=== PATIENT | male | born 1970 | race Two or more races ===

== ENCOUNTER 2024-09-10 12:26 | Inpatient (IN) | payer MEDICAID, SELFPAY ==
[2024-09-10] VITALS (12 sets, daily range): BP systolic 110–150; BP diastolic 66–95; PULSE 102–132; RESP 17–90; TEMP 36.8–37.7; O2SAT 93–96; BMI 29.9
--- NOTE | 2024-09-10 12:45 | XR_ITS ---
Examination: Foot, right, 3 views Technique: AP, oblique, lateral views foot, 3 views Date and time of exam: September 10, 2024, 1349 hrs. 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
[2024-09-10 13:17] LABS: Basophils # (Auto) 0.2 Thou/mm3 (0.0-0.2); Basophils % (Auto) 1 % (0-2.5); Eosinophils % (Auto) 0 % (0-10); Hematocrit 37.6 % (41.0-53.0); Hemoglobin 13.6 g/dL (13.5-16.0); Immature Granulocytes % (Auto) 1 % (0-0); Lymphocytes # (Auto) 0.9 Thou/mm3 (1.0-4.8); Lymphocytes % (Auto) 5 % (10-50); Mean Corpuscular HGB Conc 36.2 g/dl (31.0-37.0); Mean Corpuscular Hemoglobin 29.5 pg (25.0-35.0); Mean Corpuscular Volume 82 fL (80-100); Monocytes % (Auto) 6 % (0-12); Neutrophils # (Auto) 15.6 Thou/mm3 (1.8-7.7); Neutrophils % (Auto) 87 % (37-80); Nucleated Red Blood Cell % 0 /100 WBC (0); Platelet Count 224 Thou/mm3 (140-440); RDW Standard Deviation 37.1 fL (35.1-43.9); Red Blood Count 4.61 Miln/mm3 (4.50-5.90); White Blood Count 17.9 Thou/mm3 (3.8-10.6)
[2024-09-10 13:24] LABS: Glucose Estimated Average 160 mg/dL (80-131); Hemoglobin A1C 7.2 % Hgb (4.8-6.0)
[2024-09-10 13:25] LABS: INR 1.1 (0.9-1.3); Partial Thromboplastin Time 32.1 Seconds (22.0-36.0); Prothrombin Time 12.3 Seconds (9.0-12.2)
--- NOTE | 2024-09-10 13:25 | EDNOTE_ITS ---
ED Skin Abcess FB-RME/HPI General Chief complaint: Skin/Abscess/Foreign Body Stated complaint: RIGHT FOOT REDNESS/SWELLING/PAIN, FEVER Time Seen by Provider: 09/10/24 12:36 Arrival date/time: 09/10/24 12:26 This is a 54-year-old male that comes in with nephew with complaints of right foot redness swelling pain and fever. Patient states that swelling to his right foot started approximately 2 weeks ago. Patient states he never sees a doctor. Patient does not know if he is diabetic. Patient has multiple wounds to his right foot. Patient states that he had a large blister to the top of his right foot that popped. Under this area looks very dark purple blackish color. Patient has multiple wounds to his foot. Entire foot is swollen erythemic and very foul-smelling. Patient has wounds in between his toes. Patient has a wound around the first digit and to the bottom of the foot. Patient states has been draining fluid. Related Data Previous Rx's ?Medication ?Instructions ?Recorded ascorbic acid (vitamin C) 250 mg 500 mg (2 x 250 mg) P O BID #60 tabs 09/18/24 tablet (Vitamin C) docusate sodium 100 mg capsule 100 mg PO BID #30 caps 09/18/24 hydrocodone 5 mg-acetaminophen 325 1 tab PO Q6H PRN pa in (scale score 09/18/24 mg tablet 7-10) #20 tabs metformin 500 mg tablet 500 mg PO BID 30 days #60 ta bs 09/18/24 zinc sulfate 50 mg zinc (220 mg) 220 mg (4.4 x 50 mg z inc (220 mg)) 09/18/24 capsule PO QDAY #30 caps Allergies Allergy/AdvReac Type Severity Reaction Status Date / Time No Known Allergies Allergy Verified 09/10/24 12:31 Review of Systems Review of Systems Systems Reviewed: All systems reviewed, normal except as documented Past Medical History Surgical History OTHER SURGICAL HX: Left arm Social History SMOKING STATUS: Never smoker SUBSTANCE USE: does not use ALCOHOL: Current ED Exam Narrative Physical exam: VITAL SIGNS: Reviewed. GENERAL APPEARANCE: Alert and interactive, follows commands, no acute distress, HEAD AND FACE: Non-traumatic. ENT: PERRL, conjuctiva pink and clear, eyelid no trauma, Mucous membrane moist. NECK: Supple, nontender, no nuchal rigidity. CHEST: No tenderness, no crepitus, no paradoxical movement, no retractions. LUNGS: Clear, well ventilated, symmetric, no rales, no wheezing, no rhonchi, no stridor, good breath sounds bilaterally. HEART: Regular rate, regular rhythm, no murmur, no gallops. ABDOMEN: Soft, nondistended, no guarding, nontender, no rebound, no masses, NEUROLOGICAL: Gross motor function intact sensory function intact, Appropriate for age. MUSCULOSKELETAL: low back nontender, full range of motion. EXTREMITIES: No redness no swelling no skin breakdown on bilateral foot and leg. Distal neurovascular status intact bilateral foot SKIN: right lower extremity erythema, swelling, induration, bulla formation, foul odor, multiple open wounds around bottom of foot Course Quality Measures none Orders Category Date Time Status Glucose [Bedside Blood Glucose] NOW Care 09/10/24 16:56 Completed Insert IV NOW Care 09/10/24 12:44 Completed Consult to General Surgery Stat Cons 09/10/24 16:[address] foot RT wo con Stat Exams 09/10/24 14:55 Completed XR foot comp RT min 3V Stat Exams 09/10/24 12:45 Completed A1C [Glycohemoglobin w (eAG)] Stat Lab 09/10/24 12:55 Completed Blood Culture (Lab) Stat Lab 09/10/24 12:58 Completed CBC Stat Lab 09/10/24 12:55 Completed CMP [Comprehensive Metabolic Panel] Stat Lab 09/10/24 12:55 Completed CRP [C-Reactive Protein] Stat Lab 09/10/24 12:55 Completed ESR [Sed Rate (ESR)] Stat Lab 09/10/24 12:55 Completed Lactic Acid [Lactate (Lactic Acid)] Stat Lab 09/10/24 12:55 Completed Lactic Acid, 3 HR Stat Lab 09/10/24 16:22 Completed PT [Prothrombin Time with INR] Stat Lab 09/10/24 12:55 Completed PTT [Partial Thromboplastin Time] Stat Lab 09/10/24 12:55 Completed Procalcitonin Stat Lab 09/10/24 12:55 Completed Piper/Tazo 3.375 gm Premix [Zosyn] Med 09/10/24 12:44 Discontinued 3.375 gm in 50 ml IV X1 Sodium Chloride 0.9% 1000 ml [Ns] 1,000 ml Med 09/10/24 13:35 Discontinued IV 999 mls/hr Sodium Chloride 0.9% 1000 ml [Ns] 1,000 ml Med 09/10/24 13:36 Discontinued IV 999 mls/hr Sodium Chloride 0.9% 1000 ml [Ns] 1,000 ml Med 09/10/24 14:40 Discontinued IV 999 mls/hr Vancomycin/Ns 1 gm Ivpb 200 ml Med 09/10/24 12:44 Discontinued IV X1 Vital Signs Vital signs: Vital Signs Temperature 99.8 F 09/10/24 12:36 Pulse Rate 132 H 09/10/24 12:36 Respiratory Rate 18 09/10/24 12:36 Blood Pressure 137/81 H 09/10/24 12:36 Pulse Oximetry (%) 96 09/10/24 12:36 Oxygen Delivery Method Room Air 09/10/24 12:36 Skin / Abscess / Foreign Body MDM Narrative MDM Narrative:: Findings: Cortical bone destruction involving the proximal phalanx Suspicious for erosions distal second and third metatarsals Impression: Osteomyelitis proximal phalanx third digit, distal second and third metatarsals, consider MRI foot without contrast follow-up third digit Prominent osteopenia Air in the soft tissue lateral ankle and over the metatarsals Findings: Soft tissue infection with air density anterior to the ankle and lateral malleolus as well as dorsum of the foot Prominent osteopenia Periosteal new bone along the proximal phalanx of the second digit Gross bone destruction involving the proximal phalanx of the third digit Early erosions involving the distal second and third metatarsals Impression: Extensive soft tissue infection Osteomyelitis proximal phalanges second and third digits, early osteomyelitis distal second and third metatarsals Labs reviewed patient's white count is 17.9, hemoglobin and hematocrit are 13.6 and 37.6 platelet count is 224, neutrophil count 87. Patient's ESR is 116, PT 12.3, INR 1.1. Sodium 137, potassium 3.4, chloride 97 BUN of 28 and creatinine of 1.2 initial glucose 427, ALT of 21 alk phos of 109, CRP is 33 okay it is okay procalcitonin of 37.84. rEviewed case with . Initially it is x-ray of the right foot was ordered. It showed osteomyelitis. Because of the severity of the infection a CT of the right lower extremity ordered. Stat rad called me and let me know that patient had diffuse necrotizing fasciitis anaerobic cellulitis and soft tissue abscesses with osteomyelitis. Dr Wade called and stated he would consult on patient. I did call admitting hospitalist team. They requested that Dr. Wade come to the bedside and see patient. Dr. Wade came at the bedside and saw patient. Patient being admitted and taken to surgery immediately. Patient data External records reviewed:: [facility] previous records Clinical information provided by:: patient Social determinants that could affect healthcare access:: none Patient has the following chronic illnesses:: see hpi How is presenting disease/condition affected by chronic disease/condition?: exacerbated by Evaluation data The following diagnostics were reviewed and interpreted by me:: lab results and radiology exam(s) Lab and/or radiology exams considered but not ordered:: none Interpretation Summary: see note Medications / Prescriptions Medications or Prescriptions considered but not ordered:: none Medication administrations:: Medication Administration History Discontinued Medications Acetaminophen (Acetaminophen 325 Mg Tablet) 650 mg PO Q6H PRN PRN Reason: PAIN OR FEVER > 101 Stop: 10/10/24 17:53 Acetaminophen (Acetaminophen 325 Mg Tablet) 650 mg PO Q6H PRN PRN Reason: PAIN OR FEVER > 101 Stop: 10/10/24 17:53 Hydrocodone Bitart/Acetaminophen (Hydrocodone/Apap 5/325 Tablet) 1 tab PO Q6HR PRN PRN Reason: PAIN SCALE 4-6 (Moderate Stop: 09/15/24 18:35 Ascorbic Acid (Ascorbic Acid 250 Mg Tablet) 500 mg PO BID LEONIDAS Stop: 10/10/24 20:59 Last Admin: 09/18/24 09:45 Dose: 500 mg Documented By: Admin: 09/17/24 20:53 Dose: 500 mg Documented By: Admin: 09/17/24 08:35 Dose: 500 mg Documented By: Admin: 09/16/24 20:10 Dose: 500 mg Documented By: Admin: 09/16/24 09:15 Dose: 500 mg Documented By: Admin: 09/15/24 20:27 Dose: 500 mg Documented By: Admin: 09/15/24 08:28 Dose: Not Given Documented By: GELA Non-Admin Reason: NPO Admin: 09/14/24 20:15 Dose: 500 mg Documented By: Admin: 09/14/24 08:29 Dose: 500 mg Documented By: Admin: 09/13/24 20:15 Dose: 500 mg Documented By: Admin: 09/13/24 08:07 Dose: 500 mg Documented By: Admin: 09/12/24 20:10 Dose: 500 mg Documented By: Admin: 09/12/24 08:07 Dose: 500 mg Documented By: Admin: 09/11/24 21:03 Dose: 500 mg Documented By: Admin: 09/11/24 08:49 Dose: 500 mg Documented By: Admin: 09/10/24 20:59 Dose: 500 mg Documented By: JOSEY Atorvastatin Calcium (Atorvastatin Calcium 20 Mg Tablet) 40 mg PO HS LEONIDAS Stop: 10/11/24 20:59 Last Admin: 09/17/24 20:53 Dose: 40 mg Documented By: Admin: 09/16/24 20:10 Dose: 40 mg Documented By: Admin: 09/15/24 20:26 Dose: 40 mg Documented By: Admin: 09/14/24 20:16 Dose: 40 mg Documented By: Admin: 09/13/24 20:15 Dose: 40 mg Documented By: Admin: 09/12/24 20:10 Dose: 40 mg Documented By: Admin: 09/11/24 21:03 Dose: 40 mg Documented By: MAURICIO Cefazolin Sodium (Cefazolin Inj 1 Gm Vial) Confirm Administered Dose 2 gm .ROUTE .STK-MED ONE Stop: 09/15/24 12:34 Cephalexin HCl (Cephalexin 250 Mg Capsule) 500 mg PO QID [facility] Stop: 09/22/24 08:14 Last Admin: 09/18/24 12:05 Dose: 500 mg Documented By: Admin: 09/18/24 05:10 Dose: 500 mg Documented By: Admin: 09/17/24 20:53 Dose: 500 mg Documented By: Admin: 09/17/24 16:53 Dose: 500 mg Documented By: Admin: 09/17/24 12:00 Dose: 500 mg Documented By: Admin: 09/17/24 08:35 Dose: 500 mg Documented By: ALANIS Dexamethasone Sodium Phosphate (Dexamethasone Sod Phos Inj 10 Mg/Ml Vial) Confirm Administered Dose 10 mg .ROUTE .STK-MED ONE Stop: 09/10/24 19:00 Dexamethasone Sodium Phosphate (Dexamethasone Sod Phos Inj 10 Mg/Ml Vial) Confirm Administered Dose 10 mg .ROUTE .STK-MED ONE Stop: 09/15/24 12:15 Dextrose (Dextrose 50%-Water Inj 50 Ml Syringe) 25 ml IV Q15MIN PRN PRN Reason: BG 50-70 responsive npo pt Stop: 10/10/24 18:03 Dextrose (Dextrose 50%-Water Inj 50 Ml Syringe) 50 ml IV Q15MIN PRN PRN Reason: BG <50 OR BG <70 & pt unresponsive Stop: 10/10/24 18:03 Docusate Sodium (Docusate Sod 100 Mg Capsule) 100 mg PO BID LEONIDAS; Protocol Stop: 10/10/24 20:59 Last Admin: 09/18/24 09:46 Dose: 100 mg Documented By: Admin: 09/17/24 20:53 Dose: 100 mg Documented By: Admin: 09/17/24 08:35 Dose: 100 mg Documented By: Admin: 09/16/24 20:10 Dose: 100 mg Documented By: Admin: 09/16/24 09:15 Dose: 100 mg Documented By: Admin: 09/15/24 20:27 Dose: 100 mg Documented By: Admin: 09/15/24 08:28 Dose: Not Given Documented By: GELA Non-Admin Reason: NPO Admin: 09/14/24 20:15 Dose: 100 mg Documented By: Admin: 09/14/24 08:29 Dose: Not Given Documented By: MICHAEL Non-Admin Reason: Patient Refused Admin: 09/13/24 20:15 Dose: 100 mg Documented By: Admin: 09/13/24 08:07 Dose: 100 mg Documented By: Admin: 09/12/24 20:10 Dose: 100 mg Documented By: Admin: 09/12/24 08:07 Dose: 100 mg Documented By: Admin: 09/11/24 20:42 Dose: Not Given Documented By: JVIOLET Non-Admin Reason: loose stools Admin: 09/11/24 08:50 Dose: Not Given Documented By: NYDIA Non-Admin Reason: loose stools Admin: 09/10/24 20:59 Dose: 100 mg Documented By: JOSEY Esmolol HCl (Esmolol Inj 10 Mg/Ml Vial 10 Ml) Confirm Administered Dose 100 mg .ROUTE .STK-MED ONE Stop: 09/10/24 19:39 Fentanyl Citrate (Fentanyl Cit Inj 50 Mcg/Ml Amp 2ml) Confirm Administered Dose 100 mcg .ROUTE .STK-MED ONE Stop: 09/10/24 18:33 Fentanyl Citrate (Fentanyl Cit Inj 50 Mcg/Ml Amp 2ml) Confirm Administered Dose 100 mcg .ROUTE .STK-MED ONE Stop: 09/10/24 19:05 Fentanyl Citrate (Fentanyl Cit Inj 50 Mcg/Ml Amp 2ml) 50 mcg IVP Q5MIN PRN PRN Reason: PAIN SCALE 4-10(Mod-Sev Fentanyl Citrate (Fentanyl Cit Inj 50 Mcg/Ml Amp 2ml) Confirm Administered Dose 100 mcg .ROUTE .STK-MED ONE Stop: 09/15/24 12:13 Fentanyl Citrate (Fentanyl Cit Inj 50 Mcg/Ml Amp 2ml) 50 mcg IVP Q5M PRN PRN Reason: PAIN SCALE 7-10 (Severe Stop: 09/15/24 14:39 Last Admin: 09/15/24 14:10 Dose: 50 mcg Documented By: Admin: 09/15/24 13:58 Dose: 50 mcg Documented By: FB Fentanyl Citrate (Fentanyl Cit Inj 50 Mcg/Ml Amp 2ml) Confirm Administered Dose 100 mcg .ROUTE .[facility]-MED ONE Stop: 09/15/24 12:41 Glucagon (Glucagon Inj 1 Mg Vial) 1 mg IM Q15MIN PRN PRN Reason: BG <70, and no IV access Hydralazine HCl (Hydralazine Inj 20 Mg/Ml Vial) 5 mg IV Q20MIN PRN PRN Reason: SEE COMMENTS Piperacillin/Tazobactam/Dextrose (Zosyn) 3.375 gm in 50 mls @ 100 mls/hr IV X1 ONE Stop: 09/10/24 13:13 Last Infusion: 09/10/24 14:01 Dose: Infused Documented By: Admin: 09/10/24 13:31 Dose: 100 mls/hr Documented By: EF Vancomycin/Sodium Chloride (Vancomycin/Ns 1 Gm Ivpb) 200 mls @ 120 mls/hr IV X1 ONE Stop: 09/10/24 14:23 Last Infusion: 09/10/24 15:48 Dose: Infused Documented By: Admin: 09/10/24 14:07 Dose: 120 mls/hr Documented By: EF Sodium Chloride (Ns) 1,000 mls @ 999 mls/hr IV .Q1H1M ONE Stop: 09/10/24 14:35 Last Infusion: 09/10/24 15:09 Dose: Infused Documented By: Admin: 09/10/24 14:08 Dose: 999 mls/hr Documented By: EF Sodium Chloride (Ns) 1,000 mls @ 999 mls/hr IV .Q1H1M ONE Stop: 09/10/24 14:36 Last Infusion: 09/10/24 15:09 Dose: Infused Documented By: Admin: 09/10/24 14:08 Dose: 999 mls/hr Documented By: EF Sodium Chloride (Ns) 1,000 mls @ 999 mls/hr IV .Q1H1M ONE Stop: 09/10/24 15:40 Last Infusion: 09/10/24 16:28 Dose: Infused Documented By: Admin: 09/10/24 15:27 Dose: 999 mls/hr Documented By: EF Lactated Ringer's (Lactated Ringers) 1,000 mls @ 75 mls/hr IV .[id number] [facility]ONIDAS Stop: 10/10/24 17:59 Last Admin: 09/11/24 07:50 Dose: Not Given Documented By: TD Non-Admin Reason: Discontinued Piperacillin/Tazobactam/Dextrose (Zosyn) 3.375 gm in 50 mls @ 12.5 mls/hr IV Q8HR [facility] Stop: 09/17/24 21:59 Last Infusion: 09/14/24 10:33 Dose: Infused Documented By: Admin: 09/14/24 06:33 Dose: 12.5 mls/hr Documented By: Infusion: 09/14/24 02:48 Dose: Infused Documented By: Admin: 09/13/24 22:48 Dose: 12.5 mls/hr Documented By: Infusion: 09/13/24 17:26 Dose: Infused Documented By: Admin: 09/13/24 13:26 Dose: 12.5 mls/hr Documented By: Infusion: 09/13/24 09:19 Dose: Infused Documented By: Admin: 09/13/24 05:19 Dose: 12.5 mls/hr Documented By: Infusion: 09/13/24 03:03 Dose: Infused Documented By: Admin: 09/12/24 23:03 Dose: 12.5 mls/hr Documented By: Infusion: 09/12/24 18:18 Dose: Infused Documented By: Admin: 09/12/24 14:18 Dose: 12.5 mls/hr Documented By: Infusion: 09/12/24 09:14 Dose: Infused Documented By: Admin: 09/12/24 05:14 Dose: 12.5 mls/hr Documented By: Infusion: 09/12/24 01:03 Dose: Infused Documented By: Admin: 09/11/24 21:03 Dose: 12.5 mls/hr Documented By: Infusion: 09/11/24 18:57 Dose: Infused Documented By: Admin: 09/11/24 14:57 Dose: 12.5 mls/hr Documented By: Infusion: 09/11/24 09:04 Dose: Infused Documented By: Admin: 09/11/24 05:04 Dose: 12.5 mls/hr Documented By: Infusion: 09/11/24 01:32 Dose: Infused Documented By: Admin: 09/10/24 21:32 Dose: 12.5 mls/hr Documented By: JOSEY Vancomycin/Sodium Chloride (Vancomycin/Ns 1 Gm Ivpb) 200 mls @ 120 mls/hr IV Q12H LEONIDAS; Protocol Stop: 09/17/24 21:59 Last Infusion: 09/11/24 23:28 Dose: Infused Documented By: Admin: 09/11/24 21:47 Dose: 120 mls/hr Documented By: Infusion: 09/11/24 11:59 Dose: Infused Documented By: Admin: 09/11/24 10:18 Dose: 120 mls/hr Documented By: Infusion: 09/10/24 22:43 Dose: Infused Documented By: Admin: 09/10/24 21:02 Dose: 120 mls/hr Documented By: JOSEY Lactated Ringer's (Lactated Ringers) 1,000 mls @ 150 mls/hr IV .Q6H40M LEONIDAS Stop: 10/10/24 18:35 Last Admin: 09/13/24 02:06 Dose: 150 mls/hr Documented By: Infusion: 09/12/24 21:00 Dose: Infused Documented By: Admin: 09/12/24 14:19 Dose: 150 mls/hr Documented By: Infusion: 09/12/24 11:55 Dose: Infused Documented By: Admin: 09/12/24 05:14 Dose: 150 mls/hr Documented By: Infusion: 09/12/24 03:44 Dose: Infused Documented By: Admin: 09/11/24 21:03 Dose: 150 mls/hr Documented By: Infusion: 09/11/24 21:03 Dose: Infused Documented By: Admin: 09/11/24 14:59 Dose: Not Given Documented By: TD Non-Admin Reason: new bag just scanned Admin: 09/11/24 14:58 Dose: 150 mls/hr Documented By: Infusion: 09/11/24 11:16 Dose: Infused Documented By: Admin: 09/11/24 04:35 Dose: 150 mls/hr Documented By: Infusion: 09/11/24 03:35 Dose: Infused Documented By: MRFito Admin: 09/10/24 20:54 Dose: 150 mls/hr Documented By: JOSEY Promethazine HCl 12.5 mg/ (Sodium Chloride) 50.5 mls @ 2.5 mls/min IV X1 PRN PRN Reason: NAUSEA OR VOMITING Vancomycin/Sodium Chloride (Vancomycin/Ns 1 Gm Ivpb) 200 mls @ 120 mls/hr IV Q8HR LEONIDAS; Protocol Stop: 09/19/24 08:59 Last Admin: 09/13/24 07:16 Dose: 120 mls/hr Documented By: Infusion: 09/12/24 23:12 Dose: Infused Documented By: Admin: 09/12/24 21:31 Dose: 120 mls/hr Documented By: MRFito Infusion: 09/12/24 16:05 Dose: Infused Documented By: Admin: 09/12/24 14:24 Dose: 120 mls/hr Documented By: Infusion: 09/12/24 11:41 Dose: Infused Documented By: Admin: 09/12/24 10:00 Dose: 120 mls/hr Documented By: MICHAEL Vancomycin/Sodium Chloride (Vancomycin/Ns 750 Mg Ivpb) 750 mg in 150 mls @ 120 mls/hr IV Q8HR [facility] Stop: 09/20/24 13:59 Last Admin: 09/14/24 05:20 Dose: 120 mls/hr Documented By: Infusion: 09/13/24 22:21 Dose: Infused Documented By: Admin: 09/13/24 21:06 Dose: 120 mls/hr Documented By: Infusion: 09/13/24 14:42 Dose: Infused Documented By: Admin: 09/13/24 13:27 Dose: 120 mls/hr Documented By: SCOTTY Albumin Human (Albuminar-25 Ivpb) 12.5 gm in 50 mls @ 50 mls/hr IV X1 ONE Stop: 09/13/24 13:29 Last Admin: 09/13/24 13:00 Dose: 50 mls/hr Documented By: SCOTTY Ceftriaxone Sodium/Dextrose (Rocephin/D5w 1gm Iv Premix) 1 gm in 50 mls @ 100 mls/hr IV Q12HR [facility]ON[facility]AS Stop: 09/21/24 11:57 Last Infusion: 09/15/24 16:13 Dose: Infused Documented By: Admin: 09/15/24 08:29 Dose: 100 mls/hr Documented By: Infusion: 09/14/24 20:46 Dose: Infused Documented By: Admin: 09/14/24 20:16 Dose: 100 mls/hr Documented By: Infusion: 09/14/24 13:45 Dose: Infused Documented By: Admin: 09/14/24 13:15 Dose: 100 mls/hr Documented By: MICHAEL Ceftriaxone Sodium/Dextrose (Rocephin/D5w 1gm Iv Premix) 1 gm in 50 mls @ 100 mls/hr IV DAILY LEONIDAS Stop: 09/23/24 08:59 Last Admin: 09/16/24 09:16 Dose: 100 mls/hr Documented By: TD Acetaminophen (Ofirmev Inj) 1,000 mg in 100 mls @ 250 mls/hr IV Q6H PRN PRN Reason: PAIN 1-6 (mild-mod Stop: 09/16/24 12:38 Last Infusion: 09/15/24 14:36 Dose: Infused Documented By: Admin: 09/15/24 14:12 Dose: 250 mls/hr Documented By: FB Insulin Glargine (Insulin Glargine (Lantus) 5 Unit/0.05 Ml (Per 5 Units)) 5 unit SC QDAY LEONIDAS Stop: 10/11/24 08:59 Last Admin: 09/11/24 08:50 Dose: 5 unit Documented By: NYDIA Co-signed By: Insulin Glargine (Insulin Glargine (Lantus) 5 Unit/0.05 Ml (Per 5 Units)) 10 unit SC QDAY LEONIDAS Stop: 10/12/24 08:59 Last Admin: 09/12/24 08:08 Dose: 10 unit Documented By: MICHAEL Co-signed By: LUL Insulin Glargine (Insulin Glargine (Lantus) 5 Unit/0.05 Ml (Per 5 Units)) 5 unit SC X1 ONE Stop: 09/12/24 08:23 Last Admin: 09/12/24 10:06 Dose: 5 unit Documented By: MICHAEL Co-signed By: LUL Insulin Glargine (Insulin Glargine (Lantus) 5 Unit/0.05 Ml (Per 5 Units)) 15 unit SC QDAY LEONIDAS Stop: 10/13/24 08:59 Last Admin: 09/18/24 09:46 Dose: 15 unit Documented By: JOSIAH Co-signed By: SCOTTY Admin: 09/17/24 08:39 Dose: 15 unit Documented By: ALANIS Co-signed By: ADAM Admin: 09/16/24 09:16 Dose: 15 unit Documented By: NYDIA Co-signed By: TERRY Admin: 09/15/24 08:28 Dose: Not Given Documented By: GELA Non-Admin Reason: NPO Admin: 09/14/24 08:29 Dose: 15 unit Documented By: MICHAEL Co-signed By: PETER Admin: 09/13/24 08:07 Dose: 15 unit Documented By: SCOTTY Co-signed By: LUL Insulin Human Lispro (Insulin Lispro (Admelog) 1 Unit/0.01 Ml Unit) 0 unit SC AC [facility]; Protocol Stop: 10/11/24 07:29 Last Admin: 09/18/24 12:05 Dose: Not Given Documented By: JOSIAH Non-Admin Reason: Per Protocol Admin: 09/18/24 07:20 Dose: Not Given Documented By: JOSIAH Non-Admin Reason: Per Protocol Admin: 09/17/24 16:54 Dose: 2 unit Documented By: CL Co-signed By: ALANIS Admin: 09/17/24 11:34 Dose: Not Given Documented By: ALANIS Non-Admin Reason: blood sugar 144 Admin: 09/17/24 08:30 Dose: Not Given Documented By: JA Non-Admin Reason: blood sugar 112 Admin: 09/16/24 17:42 Dose: Not Given Documented By: TD Non-Admin Reason: Per Protocol Admin: 09/16/24 11:54 Dose: 2 unit Documented By: TD Co-signed By: Admin: 09/16/24 07:23 Dose: 2 unit Documented By: TD Co-signed By: Admin: 09/15/24 17:19 Dose: Not Given Documented By: GELA Non-Admin Reason: Per Protocol Admin: 09/15/24 14:57 Dose: Not Given Documented By: GELA Non-Admin Reason: Per Protocol Admin: 09/15/24 08:28 Dose: Not Given Documented By: GELA Non-Admin Reason: Per Protocol Admin: 09/14/24 17:13 Dose: Not Given Documented By: MM Non-Admin Reason: Per Protocol Admin: 09/14/24 11:40 Dose: Not Given Documented By: DM Non-Admin Reason: Per Protocol Admin: 09/14/24 07:48 Dose: Not Given Documented By: DM Non-Admin Reason: Per Protocol Admin: 09/13/24 17:27 Dose: Not Given Documented By: YM Non-Admin Reason: Per Protocol Admin: 09/13/24 11:17 Dose: Not Given Documented By: YM Non-Admin Reason: Per Protocol Admin: 09/13/24 07:38 Dose: Not Given Documented By: YM Non-Admin Reason: Per Protocol Admin: 09/12/24 17:44 Dose: Not Given Documented By: DM Non-Admin Reason: Per Protocol Admin: 09/12/24 12:28 Dose: 2 unit Documented By: DM Co-signed By: LUL Admin: 09/12/24 08:07 Dose: 3 unit Documented By: DM Co-signed By: LUL Admin: 09/11/24 17:14 Dose: 3 unit Documented By: TD Co-signed By: PETER(2) Admin: 09/11/24 11:20 Dose: 5 unit Documented By: TD Co-signed By: PETER(2) Admin: 09/11/24 07:31 Dose: 3 unit Documented By: TD Co-signed By: PETER(2) Insulin Human Lispro (Insulin Lispro (Admelog) 1 Unit/0.01 Ml Unit) 5 unit SC X1 ONE Stop: 09/11/24 11:16 Last Admin: 09/11/24 11:19 Dose: 5 unit Documented By: NYDIA Co-signed By: PETER(2) Insulin Human Lispro (Insulin Lispro (Admelog) 1 Unit/0.01 Ml Unit) 2 unit SC TIDWM [facility]ON[facility]AS Stop: 10/11/24 17:29 Last Admin: 09/12/24 08:07 Dose: 2 unit Documented By: MICHAEL Co-signed By: LUL Admin: 09/11/24 17:15 Dose: 2 unit Documented By: NYDIA Co-signed By: PETER(2) Insulin Human Lispro (Insulin Lispro (Admelog) 1 Unit/0.01 Ml Unit) 5 unit SC TIDWM [facility] Stop: 10/12/24 11:59 Last Admin: 09/18/24 12:17 Dose: 5 unit Documented By: JOSIAH Co-signed By: TERRY Admin: 09/18/24 07:54 Dose: 5 unit Documented By: JOSIAH Co-signed By: RAJ Admin: 09/17/24 16:53 Dose: 5 unit Documented By: ESTEFANY Co-signed By: ALANIS Admin: 09/17/24 12:01 Dose: 5 unit Documented By: ALANIS Co-signed By: SCOTTY Admin: 09/17/24 08:30 Dose: Not Given Documented By: ALANIS Non-Admin Reason: per doctor hold blood sugar 112 Admin: 09/16/24 17:42 Dose: 5 unit Documented By: NYDIA Co-signed By: Admin: 09/16/24 11:55 Dose: 5 unit Documented By: NYDIA Co-signed By: Admin: 09/16/24 07:23 Dose: 5 unit Documented By: NYDIA Co-signed By: Admin: 09/15/24 17:19 Dose: Not Given Documented By: GELA Non-Admin Reason: Per Protocol Admin: 09/15/24 14:57 Dose: Not Given Documented By: GELA Non-Admin Reason: NPO Admin: 09/15/24 08:28 Dose: Not Given Documented By: GELA Non-Admin Reason: Per Protocol Admin: 09/14/24 17:30 Dose: Not Given Documented By: MICHAEL Non-Admin Reason: Patient Refused Admin: 09/14/24 11:52 Dose: 5 unit Documented By: IMCHAEL Co-signed By: PETER Admin: 09/14/24 07:50 Dose: 5 unit Documented By: MICHAEL Co-signed By: PETER Admin: 09/13/24 17:17 Dose: 5 unit Documented By: SCOTTY Co-signed By: MICHAEL Admin: 09/13/24 11:14 Dose: 5 unit Documented By: SCOTTY Co-signed By: MICHAEL Admin: 09/13/24 08:08 Dose: 5 unit Documented By: SCOTTY Co-signed By: LUL Admin: 09/12/24 17:45 Dose: Not Given Documented By: MICHAEL Non-Admin Reason: Patient Refused Admin: 09/12/24 12:28 Dose: 5 unit Documented By: MICHAEL Co-signed By: LUL Insulin Human Regular (Insulin Hum Regular 1 Unit/0.01 Ml (Per Unit)) 10 unit SC X1 ONE Stop: 09/10/24 18:02 Last Admin: 09/10/24 18:36 Dose: Not Given Documented By: LUIS Non-Admin Reason: Cancelled by Provider Insulin Human Regular (Insulin Hum Regular 1 Unit/0.01 Ml (Per Unit)) 5 unit SC X1 ONE Stop: 09/10/24 18:35 Last Admin: 09/10/24 18:40 Dose: 5 unit Documented By: LUIS Co-signed By: HELENA Lidocaine HCl (Lidocaine Inj Pf 1% 2 Ml Vial) Confirm Administered Dose 2 ml .ROUTE .STK-MED ONE Stop: 09/10/24 18:47 Lidocaine HCl (Lidocaine Inj Pf 2% 5 Ml Vial) Confirm Administered Dose 5 ml .ROUTE .STK-MED ONE Stop: 09/15/24 12:13 Metoclopramide HCl (Metoclopramide Inj 5 Mg/Ml Vial 2 Ml) Confirm Administered Dose 10 mg .ROUTE .STK-MED ONE Stop: 09/10/24 18:39 Metoprolol Tartrate (Metoprolol Tartrate Inj 1 Mg/Ml Amp 5 Ml) 1 mg IVP Q5MIN PRN PRN Reason: TACHYCARDIA Stop: 10/10/24 19:56 Morphine Sulfate (Morphine Sulf Inj 10 Mg/Ml Vial) 2 mg IVP Q4HR PRN PRN Reason: PAIN SCALE 7-10 (Severe Stop: 09/15/24 18:35 Ondansetron HCl (Ondansetron Inj 2 Mg/Ml Inj 2 Ml) 4 mg IVP Q6H PRN; Protocol PRN Reason: NAUSEA OR VOMITING Stop: 10/10/24 17:58 Ondansetron HCl (Ondansetron Inj 2 Mg/Ml Inj 2 Ml) Confirm Administered Dose 4 mg .ROUTE .STK-MED ONE Stop: 09/15/24 12:15 Ondansetron HCl (Ondansetron Inj 2 Mg/Ml Inj 2 Ml) 4 mg IVP Q6HR PRN; Protocol PRN Reason: NAUSEA OR VOMITING Stop: 09/15/24 14:39 Pantoprazole Sodium (Pantoprazole Inj 40 Mg Vial) 40 mg IVP QDAY [facility] Stop: 10/11/24 08:59 Last Admin: 09/11/24 08:49 Dose: 40 mg Documented By: TD Pantoprazole Sodium (Pantoprazole 40 Mg Tablet) 40 mg PO QDAY [facility] Stop: 10/12/24 08:59 Last Admin: 09/18/24 09:46 Dose: 40 mg Documented By: Admin: 09/17/24 08:36 Dose: 40 mg Documented By: Admin: 09/16/24 09:15 Dose: 40 mg Documented By: Admin: 09/15/24 08:29 Dose: Not Given Documented By: GELA Non-Admin Reason: NPO Admin: 09/14/24 08:29 Dose: 40 mg Documented By: Admin: 09/13/24 08:07 Dose: 40 mg Documented By: Admin: 09/12/24 08:07 Dose: 40 mg Documented By: MICHAEL Pharmacy Consult (Vancomycin Pharmacy To Dose 1 Each Each) 1 each IV QDAY PRN PRN Reason: PROTOCOL Stop: 10/11/24 08:59 Phenylephrine HCl (Phenylephrine Inj In Ns 100 Mcg/Ml 10 Ml Syringe) Confirm Administered Dose 1,000 mcg .ROUTE .STK-MED ONE Stop: 09/10/24 18:46 Phenylephrine HCl (Phenylephrine Inj In Ns 100 Mcg/Ml 10 Ml Syringe) Confirm Administered Dose 1,000 mcg .ROUTE .STK-MED ONE Stop: 09/10/24 19:14 Potassium Chloride (Potassium Chloride 20 Meq Tabcr) 40 meq PO X1 ONE Stop: 09/11/24 11:27 Last Admin: 09/11/24 11:35 Dose: 40 meq Documented By: TD Potassium Chloride (Potassium Chloride 20 Meq Tabcr) 40 meq PO X1 ONE Stop: 09/13/24 08:36 Last Admin: 09/13/24 08:46 Dose: 40 meq Documented By: SCOTTY Potassium Phos/Sodium Phos (Naph,Kph Mbdb 1 Packet (1.5 Gm)) 1 packet PO X1 ONE Stop: 09/11/24 15:37 Last Admin: 09/11/24 17:14 Dose: 1 packet Documented By: YNDIA Potassium Phos/Sodium Phos (Naph,Kph Mbdb 1 Packet (1.5 Gm)) 1 packet PO X1 ONE Stop: 09/12/24 08:17 Last Admin: 09/12/24 10:06 Dose: 1 packet Documented By: MICHAEL Potassium Phos/Sodium Phos (Naph,Kph Mbdb 1 Packet (1.5 Gm)) 1 packet PO X1 ONE Stop: 09/15/24 08:00 Last Admin: 09/15/24 08:28 Dose: Not Given Documented By: GELA Non-Admin Reason: NPO Potassium Phos/Sodium Phos (Naph,Kph Mbdb 1 Packet (1.5 Gm)) 2 packet PO X1 ONE Stop: 09/16/24 07:41 Last Admin: 09/16/24 09:16 Dose: 2 packet Documented By: NYDIA Propofol (Propofol Inj 10 Mg/Ml Vial 20 Ml) Confirm Administered Dose 200 mg IV .STK-MED ONE Stop: 09/10/24 18:33 Propofol (Propofol Inj 10 Mg/Ml Vial 20 Ml) Confirm Administered Dose 200 mg IV .STK-MED ONE Stop: 09/15/24 12:13 Sennosides (Senna Tablet) 1 tab PO QDAY [facility]; Protocol Stop: 10/11/24 08:59 Last Admin: 09/18/24 09:46 Dose: 1 tab Documented By: Admin: 09/17/24 08:35 Dose: 1 tab Documented By: Admin: 09/16/24 09:15 Dose: 1 tab Documented By: Admin: 09/15/24 14:56 Dose: Not Given Documented By: GELA Non-Admin Reason: NPO Admin: 09/14/24 08:29 Dose: Not Given Documented By: MICHAEL Non-Admin Reason: Patient Refused Admin: 09/13/24 08:07 Dose: 1 tab Documented By: Admin: 09/12/24 08:19 Dose: 1 tab Documented By: Admin: 09/11/24 08:48 Dose: Not Given Documented By: TD Non-Admin Reason: loose stools Succinylcholine Chloride (Succinylcholine Inj 20 Mg/Ml Vial 10 Ml) Confirm Ad ministered Dose 200 mg .ROUTE .STK-MED ONE Stop: 09/10/24 19:39 Sugammadex Sodium (Sugammadex Inj 100 Mg/Ml 2ml Vial) Confirm Administered Dose 200 mg .ROUTE .STK-MED ONE Stop: 09/15/24 12:34 Zinc Sulfate (Zinc Sulfate 220 Mg Capsule) 220 mg PO QDAY [facility] Stop: 10/11/24 08:59 Last Admin: 09/18/24 09:46 Dose: 220 mg Documented By: Admin: 09/17/24 08:35 Dose: 220 mg Documented By: Admin: 09/16/24 09:15 Dose: 220 mg Documented By: Admin: 09/15/24 14:57 Dose: Not Given Documented By: GELA Non-Admin Reason: NPO Admin: 09/14/24 08:29 Dose: 220 mg Documented By: Admin: 09/13/24 08:07 Dose: 220 mg Documented By: Admin: 09/12/24 08:07 Dose: 220 mg Documented By: Admin: 09/11/24 08:49 Dose: 220 mg Documented By: TD see mar Consultations Consultation(s) initiated? (list below): Yes Consultation #1 (Physician, Specialty, Details): Diagnosis Skin/Abscess Differential Diagnosis: abscess of skin or subcutaneous tissue, cellulitis and other (sepsis, osteomyelitis) Most likely diagnosis given after review of the tests above:: osteomyelitis, necrotising faciatis Admission Indicated Admission indicated?: indicated Admission Request Was there a request for admission?: Yes Admission Attestation Admission request attestation: Discussed case with [] from Hospitalist service regarding admission. Discussed patients ED course, exam findings, labs, and radiology results. The Hospitalist [agrees,declines] to accept the patient for admission. Disposition Plan Disposition Plan: Admit Discharge Plan Plan Patient Disposition: Admit Acute Care w/in Hospital Problem List Clinical Impression: Necrotizing fasciitis, Acidosis, lactic, Osteomyelitis, Abscess, Cellulitis of foot, Sepsis Patient/Caregiver Discharge Instructions Discharge Activity: activity as tolerated Other Activity Instructions:: Take keflex 500 mg four times per day for 4 more days ? Take metformin 500 mg twice per day for your diabetes ? Continue taking all other home medications as prescribed ? Follow-up with general surgery within 1-2 weeks of discharge ? Follow-up with PCP within 1-2 weeks of discharge ? If you do not have a PCP, you can follow-up at the [facility] (you can call [phone] to make an appointment) ? If you wish to follow-up with Dr. Foster, schedule appointment on Thursday afternoons ? Return to ED if symptoms worsen or recur
[2024-09-10 13:29] LABS: Sed Rate (ESR) 116 mm/hr (0-20)
[2024-09-10] MEDS: PIPER/TAZO 3.375 GM PREMIX 3.375 GM/50 ML BAG IV ×2 (13:31→21:32)
[2024-09-10 13:45] LABS: Alanine Aminotransferase 21 U/L (10-49); Albumin, Serum 3.6 gm/dL (3.5-5.0); Alkaline Phosphatase 109 U/L (46-116); Anion Gap 13 (7-16); BUN/Creatinine Ratio 23 Ratio (12-20); Bilirubin,Total 1.6 mg/dL (0.3-1.2); Blood Urea Nitrogen 28 mg/dL (9-23); Calcium (Corrected) 9.3 mg/dL (8.5-10.1); Carbon Dioxide 22.2 mMol/L (20.0-31.0); Chloride 97 mMol/L (98-107); Creatinine (Component) 1.2 mg/dL (0.6-1.3); Estimated Creatinine Clearance 67.6 mL/min (>60); Globulin 3.6 gm/dL (2.3-3.5); Osmolality,Calculated 288 (275-295); Potassium 3.4 mMol/L (3.4-5.1); Procalcitonin 37.84 ng/ml (0.0-0.49); Sodium 132 mMol/L (136-145); Total Protein 7.2 gm/dL (5.7-8.2); eGFR > 60 See Note
[2024-09-10 13:50] LABS: Glucose 427 mg/dL (74-106)
[2024-09-10] MEDS: VANCOMYCIN/NS 1 GM IVPB 200 ML IV ×2 (14:07→21:02)
[2024-09-10] MEDS: SODIUM CHLORIDE 0.9% 1000 ML 1,000 ML 999 ML IV ×3 (14:08→15:27)
--- NOTE | 2024-09-10 14:55 | XR_ITS ---
Examination: CT right foot, without contrast. 2-D sagittal reconstructions. 2-D coronal reconstructions. 3-D reconstructions. Date and time of exam:September 10, 2024 1518 hrs. Indications: Redness swelling and pain involving the foot this week CTDI: vol (mGy):There is 4.79 DLP: (mGycm):147 Technique: Multiple 1.25 mm axial sections of the right foot without intravenous contrast have been obtained. 2-D sagittal and coronal reconstructions have been obtained. 3-D reconstructions have been obtained. Low dose protocols were performed. One or more of the following dose reduction techniques were used; automated exposure control, adjustment of the mA and/or KV according to patient size, use of iterative reconstruction technique. Findings: Soft tissue infection with air density anterior to the ankle and lateral malleolus as well as dorsum of the foot Prominent osteopenia Periosteal new bone along the proximal phalanx of the second digit Gross bone destruction involving the proximal phalanx of the third digit Early erosions involving the distal second and third metatarsals Impression: Extensive soft tissue infection Osteomyelitis proximal phalanges second and third digits, early osteomyelitis distal second and third metatarsals
[2024-09-10 16:02] LABS: Reflex Lactate? Y
[2024-09-10 16:32] LABS: Lactic Acid, 3 HR 1.8 mMol/L (0.4-2.0)
--- NOTE | 2024-09-10 17:04 | PRELIM_ITS ---
CT scan of the right foot without intravenous contrast (axial sections with sagittal and coronal reformats) September 10, 2024 1518 hours Clinical History: Sepsis, abscess. Comparison: No prior study is available for comparison. Findings: There is extensive soft tissue gas extending from the third toe through both the plantar and dorsal compartments of the foot, with proximal tracking into the distal lower leg. Multiple small loculated fluid collections with internal gas bubbles are noted in the dorsal soft tissues of the mid foot, the largest measuring 1.5 x 1.4 cm. There are also air loculi in the plantar soft tissues of the mid and hind foot. Significant surrounding soft tissue edema and fat stranding are present. A subluxation of the second toe at the metatarsophalangeal joint is identified. There is a pathological fracture of the proximal phalanx of the great toe, with erosion and osteolysis of the base of the proximal phalanx and third metatarsophalangeal joint dislocation, suspicious for osteomyelitis and septic osteoarthritis. No radiopaque foreign bodies are visualized. Vascular structures remain patent. There is erosion of the ossicle adjacent to the third metatarsal head. Impression: 1. Findings suggestive of diffuse necrotizing fasciitis / anaerobic cellulitis in the plantar and dorsal aspect of the foot, with small soft tissue abscesses along the dorsal soft tissues of the mid foot. 2. Subluxation of the second metatarsophalangeal joint. 3. Osteomyelitis of the base of the proximal phalanx of the third digit with pathological fracture and septic arthritis of the third metatarsophalangeal joint. Discussion Details: Results verbally communicated to : Dr. Ascencio at 04:41 PM 09/10/2024 Report Electronically Signed By: Giuliana Guan 09/10/2024 5:03:29 PM [EST]
--- NOTE | 2024-09-10 17:06 | PC.NURSE ---
Patient has multiple wounds to his right foot. Patient states that he had a large blister to the top of his right foot that popped. Under this area looks very dark purple blackish color. Patient has multiple wounds to his foot. Patient has wounds in between his toes. Patient has a wound around the first digit and to the bottom of the foot. Patient states foot has been draining fluid
--- NOTE | 2024-09-10 18:20 | ESHP_ITS ---
Documentation for date of: 09/10/24 [facility] History of Present Illness History of present illness: 63-year-old male with a history of uncontrolled diabetes and hypertension, presenting to the emergency department with complaints of right lower extremity pain, swelling, and discharge. The patient reported a trauma to his right leg by hitting it against a tractor a few weeks ago, which resulted in a wound. However, he did not follow up with a healthcare provider for this injury. Over the last few days, he experienced chills, increased pain, and one episode of fever, for which he took Tylenol. He also noted the presence of a large blister on the dorsum of his right foot.Otherwise patient denied any chest pain, palpitation, shortness of breath, nausea, vomiting, or any other associated symptoms. He also stated that he has a longstanding history of alcohol use, he usually drinks 4 beers daily, however has never had any alcohol withdrawal symptoms. Upon presentation, the patient was hemodynamically stable. Laboratory results showed: Leukocytosis (WBC 17.9) with a left shift Procalcitonin elevated at 37.84 Elevated lactic acid of 2 ESR of 116 CRP of 33 Hyperglycemia with glucose of 427 and an A1c of 12.2% Imaging Foot x-ray revealed osteomyelitis of the proximal phalanx of the third digit, distal second and third metatarsals, and air in the soft tissue near the lateral ankle and metatarsals. A CT scan of the foot was ordered and demonstrated extensive soft tissue infection, osteomyelitis of the proximal phalanx of the 2nd and 3rd digits, and early osteomyelitis of the distal 2nd and 3rd metatarsals. Given the severity of the findings, general surgery was consulted, and the decision was made to take the patient directly to the operating room . The patient was admitted for further management. 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 Mucous membranes moist. PERRL. NECK: Supple, no lymphadenopathy, no carotid bruits. CARDIOVASCULAR: RRR. Normal S1/S2, No m/r/g. RESPIRATORY: CTAB. No wheezing, rhonchi, crackles. GASTROINTESTINAL: Abdomen soft, non tender no palpable masses. Bowel sounds present in all 4 quadrants. MUSCULOSKELETAL:? right lower extremity erythema, induration, severe tenderness, bulla formation, border spreading repeatedly. NEUROLOGICAL: CN II-XII grossly intact. No focal deficits. Sensation intact, symmetric. PSYCHIATRIC: Awake and alert, not agitated, normal mood and affect. INTEGUMENTARY: No obvious rashes, no jaundice, normal turgor. Results: Labs 09/11/24 04:49 09/10/24 12:55 Labs: Short CBC 09/10/24 Range/Units 12:55 WBC 17.9 H (3.8-10.6) Thou/mm3 Hgb 13.6 (13.5-16.0) g/dL Hct 37.6 L (41.0-53.0) % Plt Count 224 (140-440) Thou/mm3 BMP 09/10/24 12:55 Sodium 132 L Potassium 3.4 Chloride 97 L Carbon Dioxide 22.2 BUN 28 H Creatinine 1.2 Glucose 427 H* Calcium 9.0 Liver Function 09/10/24 Range/Units 12:55 Total Bilirubin 1.6 H (0.3-1.2) mg/dL ALT 21 (10-49) U/L Alkaline Phosphatase 109 (46-116) U/L Albumin 3.6 (3.5-5.0) gm/dL Quality Measures Quality Measures none Medications Home Medications and Allergies Allergies Allergy/AdvReac Type Severity Reaction Status Date / Time No Known Allergies Allergy Verified 09/10/24 12:31 Visit Medications Acetaminophen (Acetaminophen 325 Mg Tablet) 650 mg PO Q6H PRN PRN Reason: PAIN OR FEVER > 101 Stop: 10/10/24 17:53 Dextrose (Dextrose 50%-Water Inj 50 Ml Syringe) 25 ml IV Q15MIN PRN PRN Reason: BG 50-70 responsive npo pt Stop: 10/10/24 18:03 Dextrose (Dextrose 50%-Water Inj 50 Ml Syringe) 50 ml IV Q15MIN PRN PRN Reason: BG <50 OR BG <70 & pt unresponsive Stop: 10/10/24 18:03 Glucagon (Glucagon Inj 1 Mg Vial) 1 mg IM Q15MIN PRN PRN Reason: BG <70, and no IV access Lactated Ringer's (Lactated Ringers) 1,000 mls @ 75 mls/hr IV .[id number] [facility] Stop: 10/10/24 17:59 Piperacillin/Tazobactam/Dextrose (Zosyn) 3.375 gm in 50 mls @ 12.5 mls/hr IV Q8HR [facility] Stop: 09/17/24 21:59 Vancomycin/Sodium Chloride (Vancomycin/Ns 1 Gm Ivpb) 200 mls @ 120 mls/hr IV Q12H [facility] Stop: 09/17/24 21:59 Insulin Glargine (Insulin Glargine (Lantus) 5 Unit/0.05 Ml (Per 5 Units)) 5 unit SC QDAY [facility] Stop: 10/11/24 08:59 Insulin Human Lispro (Insulin Lispro (Admelog) 1 Unit/0.01 Ml Unit) 0 unit SC AC [facility]; Protocol Stop: 10/11/24 07:29 Ondansetron HCl (Ondansetron Inj 2 Mg/Ml Inj 2 Ml) 4 mg IVP Q6H PRN; Protocol PRN Reason: NAUSEA OR VOMITING Stop: 10/10/24 17:58 Pantoprazole Sodium (Pantoprazole Inj 40 Mg Vial) 40 mg IVP QDAY [facility] Stop: 10/11/24 08:59 Pharmacy Consult (Vancomycin Pharmacy To Dose 1 Each Each) 1 each IV QDAY PRN PRN Reason: PROTOCOL Stop: 10/11/24 08:59 Sennosides (Senna Tablet) 1 tab PO QDAY [facility]; Protocol Stop: 10/11/24 08:59 Discontinued Medications Piperacillin/Tazobactam/Dextrose (Zosyn) 3.375 gm in 50 mls @ 100 mls/hr IV X1 ONE Stop: 09/10/24 13:13 Last Infusion: 09/10/24 14:01 Dose: Infused Vancomycin/Sodium Chloride (Vancomycin/Ns 1 Gm Ivpb) 200 mls @ 120 mls/hr IV X1 ONE Stop: 09/10/24 14:23 Last Infusion: 09/10/24 15:48 Dose: Infused Sodium Chloride (Ns) 1,000 mls @ 999 mls/hr IV .Q1H1M ONE Stop: 09/10/24 14:35 Last Infusion: 09/10/24 15:09 Dose: Infused Sodium Chloride (Ns) 1,000 mls @ 999 mls/hr IV .Q1H1M ONE Stop: 09/10/24 14:36 Last Infusion: 09/10/24 15:09 Dose: Infused Sodium Chloride (Ns) 1,000 mls @ 999 mls/hr IV .Q1H1M ONE Stop: 09/10/24 15:40 Last Infusion: 09/10/24 16:28 Dose: Infused Insulin Human Regular (Insulin Hum Regular 1 Unit/0.01 Ml (Per Unit)) 10 unit SC X1 ONE Stop: 09/10/24 18:02 Assessment & Plan Plan 54-year-old male with past medical history of uncontrolled diabetes was admitted for necrotizing fasciitis needing surgical evaluation. #Necrotizing fasciitis #Osteomyelitis #Severe lower extremity pain, erythema secondary due to above Patient presents with chief complaints of lower extremity edema, patient reports severe pain out of proportion, had episode of fever and chills. Patient also had a recent trauma of the leg. Foot x-ray revealed osteomyelitis of the proximal phalanx of the third digit, distal second and third metatarsals, and air in the soft tissue near the lateral ankle and metatarsals. A CT scan of the foot was ordered and demonstrated extensive soft tissue infection, osteomyelitis of the proximal phalanx of the 2nd and 3rd digits, and early osteomyelitis of the distal 2nd and 3rd metatarsals. -Vanco and Zosyn -Fluid resuscitation -Continue maintenance fluids -Follow-up with blood cultures -Emergent surgical intervention -Patient is taken to the OR for emergency debridement/amputation -Pain management as needed -Follow-up with surgery recs #Uncontrolled diabetes mellitus type 2 Patient presented with glucose of about 400 A1c 7.2 Patient is not on any home medication Patient was given 10 units of subcu lispro -Started glargine 5 daily -Insulin sliding scale -Adjust based on blood sugar -Patient will need diabetic education upon discharge -Strict sugar control to optimize wound healing Disposition:telemetry DVT prophylaxis: non, pending surgery GI prophylaxis: PPI Diet: NPO Lines: PIV CODE STATUS:Full code Patient care was discussed with attending physician Dr. Misael Whitehead MD PGY-2 Attending Provider Attestation/Addendum I Benoit Douglas MD reviewed the note and agree with the resident's assessment & plan with exceptions as below. I have personally reviewed labs, imaging, home meds/prior records, examined the patient, formulated and discussed management plan with the IM team. 54-year-old male with Hx of DM, HTN had a traumatic wound at right foot progressively worsening to development of necrotizing fasciitis. General surgery was consulted, plan to do I&D/amputation today. Meanwhile we will continue with empiric antibiotic coverage with piperacillin tazobactam and vancomycin. Continue IVF resuscitation and repeat inflammatory markers in the a.m. Obtain blood cultures.
--- NOTE | 2024-09-10 18:25 | PC.NURSE ---
report given via telephone to pedro gannon
--- NOTE | 2024-09-10 18:39 | ESCONSULT_ITS ---
HPI Consult details Consult date: 09/10/24 Reason for consultation narrative: Infected right foot History of present illness: 54-year-old male with history of alcohol use disorder presented to the emergency department with grossly infected right foot. He states that he hit his right foot against a tractor few weeks ago and then noted some swelling. Over the past week he has noted increased swelling with pain and drainage. He denies history of insect or spider bite. X-ray and CT scan revealed grossly infected right foot with significant osteomyelitis. Review of Systems Constitutional Constitutional: Reports chills Cardiovascular Cardiovascular: Denies chest pain Respiratory Respiratory: Denies cough Gastrointestinal Gastrointestinal: Denies abdominal pain, Denies nausea and Denies vomiting Hematologic/Lymphatic Hematologic/Lymphatic: Denies easy bleeding and Denies easy bruising Past Medical History Surgical History OTHER SURGICAL HX: Left arm Social History SMOKING STATUS: Never smoker SUBSTANCE USE: does not use ALCOHOL: Current Meds Home Medications and Allergies Allergies Allergy/AdvReac Type Severity Reaction Status Date / Time No Known Allergies Allergy Verified 09/10/24 12:31 Exam Vital Signs Temp Pulse Resp BP Pulse Ox O2 Del Method 98.3 F 113 H 20 150/93 H 95 Room Air 09/10/24 17:00 09/10/24 18:15 09/10/24 18:15 09/10/24 18:15 09/10/24 18:15 09/10/24 18:15 Constitutional Constitutional: no acute distress Routine Extremities Exam Comments: Grossly infected right foot with significant edema and erythema extending above the ankle. Foul-smelling drainage with large area of necrotic skin on the plantar and dorsal aspect Results Results: Laboratory Laboratory results: results reviewed Results: Imaging Imaging narrative: X-ray and CT scan of right foot images reviewed, radiologist interpretation noted Assessment & Plan Additional Assessment Additional comments: Grossly infected right foot with significant osteomyelitis and necrotizing soft tissue infection Plan His foot is not salvageable at this time. Patient will be taken to the operating room emergently for guillotine amputation to control infection. Once infection is controlled and his nutrition supplemented he will be taken back to the operating room for formal below the knee amputation. Risks, benefits and alternatives discussed with the patient via interpreter translator. All his questions answered. He agreed and consented to proceed with the operation.
[2024-09-10] MEDS: INSULIN HUM REGULAR 1 UNIT/0.01 ML (PER UNIT) 5 UNIT SC (18:40)
[2024-09-10 19:08] LABS: Creatine Kinase 110 U/L (34-171)
--- NOTE | 2024-09-10 19:33 | PD.SUROPNT ---
Date of Procedure 09/10/24 Pre Op Diagnosis Grossly infected and necrotic right foot with significant osteomyelitis Post Op Diagnosis Necrotizing soft tissue infection right foot Grossly infected right foot with significant osteomyelitis Procedure Guillotine amputation of right leg Findings Grossly infected right foot with foul-smelling purulent drainage. Necrotic skin and underlying soft tissue on the dorsal and plantar aspect of right foot Procedure Description Patient was taken to the operating room supine position. After administration of general tracheal anesthesia, patient's right lower extremity prepped and draped in standard surgical manner. Using a Gigli saw I guillotine amputation was performed just above the right ankle., Anterior tibial, posterior tibial and peroneal arteries were all patent and they were individually ligated. The small venous branches were cauterized and the larger holes were ligated with silk tie. Patient was noted to have some purulent drainage emanating from mid leg. The wound was copiously and thoroughly washed and irrigated with Betadine mixed with peroxide and saline and further washed with warm saline. Hemostasis was adequate and satisfactory. The wound was covered with dry dressings. He tolerated the procedure well. He was extubated, breathing spontaneously and without difficulty and was transferred to postanesthesia care in stable condition. Instruments, needles and sponge counts were reported to be correct x 2. Anesthesia GETA and local Pathology / specimen Other (Right foot) Estimated Blood Loss 100 Condition Stable Disposition PACU Surgeon Marietta Wade MD Surgical Staff Operation Date: 09/10/24 19:15 Case Staff Anesthesiologist: Trent Hernandez RNnail tech: Julio Cesar Patel
--- NOTE | 2024-09-10 19:35 | SUR.PHASEI ---
Ar[place] [facility] [place] [facility] [place]. Report received from Chiquis TRAN and Dr. Hernandez. Dressing to RLE C/D/I. Resting with eyes open. No c/o pain or discomfort. No s/o distress. Responding to questions and commands appropriately. Noticed he sounds congested, states the inside of his nose is always swollen and that it runs in his family. Carr catheter draining aide color urine.
--- NOTE | 2024-09-10 19:58 | PD.ANESPROG ---
Documentation for date of: 09/10/24 ANESTHESIA NOTE: Patient had GETA for emergent R BKA just now. 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 His R distal leg and foot appeared grossly infectious with erythema, swelling, open skin, however he denied much pain and in fact his sensation to light touch over R foot and distal leg was less compared to L side. He has been tachycardic in ED and he appeared tacnhypneic on my visit. He denied h/o DC and denied recent chest pains. He had elevated lactic acid and glucose also. He received about 3 L NS in ED and Insulin 10 units was ordered but not given and so per my order directly with his RN, he was given 5 units of regular Insulin SC prior to going to OR. He did well intra-op, was intubated and extubated uneventfully. He received antibiotics in ED so no additional given intra-op. Carr was placed and he put out about 700 cc of dark urine. He received 800 cc of LR intra-op. He is currently in PACU doing well, appears at pre-op level, awake, calm, VSS, glucose 222. Trent Hernandez MD Anesthesia Progress Note Progress Note Most recent Vital Signs: Last Vital Signs Temp 99.7 F 09/10/24 19:50 Pulse 109 H 09/10/24 19:50 Resp 18 09/10/24 19:50 BP 121/78 09/10/24 19:50 Pulse Ox 94 L 09/10/24 19:50 O2 Del Method Room Air 09/10/24 18:15 O2 Flow Rate 4 09/10/24 19:50
--- NOTE | 2024-09-10 20:08 | SUR.PHASEI ---
Taken to room 352 via gurney by Melany TRAN. Resting with eyes open and conversing with me regarding his job. No c/o pain or discomfort. Dressing to RLE remains C/D/I. Palpable popliteal pulse. Carr catheter intact.
[2024-09-10] MEDS: RINGERS LACTATED 1000 ML 1,000 ML 150 ML IV (20:54)
[2024-09-10] MEDS: DOCUSATE SOD 100 MG CAPSULE PO (20:59)
[2024-09-10] MEDS: ASCORBIC ACID 250 MG TABLET 500 MG PO (20:59)
[2024-09-11] VITALS (8 sets, daily range): BP systolic 120–148; BP diastolic 75–83; PULSE 67–88; RESP 18–33; TEMP 36.1–37; O2SAT 93–96
--- NOTE | 2024-09-11 00:39 | PC.NURSE ---
attempted to do med rec, pt unable to recall medications. states she will bring medications to bedside tomorrow (09/11/24)
[2024-09-11] MEDS: RINGERS LACTATED 1000 ML 1,000 ML 150 ML IV ×3 (04:35→21:03)
[2024-09-11] MEDS: PIPER/TAZO 3.375 GM PREMIX 3.375 GM/50 ML BAG IV ×3 (05:04→21:03)
[2024-09-11 06:14] LABS: Basophils # (Auto) 0.1 Thou/mm3 (0.0-0.2); Basophils % (Auto) 1 % (0-2.5); Eosinophils % (Auto) 0 % (0-10); Hematocrit 36.5 % (41.0-53.0); Hemoglobin 12.5 g/dL (13.5-16.0); Immature Granulocytes % (Auto) 1 % (0-0); Immature Granulocytes Auto 0.11 Thou/mm3 (0.00-0.00); Lymphocytes # (Auto) 0.9 Thou/mm3 (1.0-4.8); Lymphocytes % (Auto) 7 % (10-50); Mean Corpuscular HGB Conc 34.2 g/dl (31.0-37.0); Mean Corpuscular Hemoglobin 28.9 pg (25.0-35.0); Mean Corpuscular Volume 85 fL (80-100); Monocytes # (Auto) 0.4 Thou/mm3 (0.0-0.8); Monocytes % (Auto) 3 % (0-12); Neutrophils # (Auto) 11.6 Thou/mm3 (1.8-7.7); Neutrophils % (Auto) 89 % (37-80); Nucleated Red Blood Cell % 0 /100 WBC (0); Platelet Count 91 Thou/mm3 (140-440); RDW Standard Deviation 40.2 fL (35.1-43.9); Red Blood Count 4.32 Miln/mm3 (4.50-5.90); White Blood Count 13.1 Thou/mm3 (3.8-10.6)
[2024-09-11 07:17] LABS: Alanine Aminotransferase 20 U/L (10-49); Albumin/Globulin Ratio 0.9 (1.2-2.2); Alkaline Phosphatase 88 U/L (46-116); Anion Gap 11 (7-16); BUN/Creatinine Ratio 28 Ratio (12-20); Blood Urea Nitrogen 17 mg/dL (9-23); Calcium 8.2 mg/dL (8.3-10.6); Carbon Dioxide 22.5 mMol/L (20.0-31.0); Chloride 106 mMol/L (98-107); Cholesterol 88 mg/dL (132-200); Creatinine (Component) 0.6 mg/dL (0.6-1.3); Estimated Creatinine Clearance 135.3 mL/min (>60); Globulin 3.2 gm/dL (2.3-3.5); Glucose 250 mg/dL (74-106); HDL Cholesterol 11 mg/dL (40-60); LDL Cholesterol,Calculated 39 mg/dL (0-130); Magnesium 1.9 mg/dL (1.6-2.6); Osmolality,Calculated 287 (275-295); Phosphorous 1.8 mg/dL (2.4-5.1); Potassium 3.2 mMol/L (3.4-5.1); Sodium 139 mMol/L (136-145); Total Protein 6.2 gm/dL (5.7-8.2); Triglycerides 188 mg/dL (30-150); eGFR > 60 See Note
[2024-09-11] MEDS: INSULIN LISPRO (AdmeLOG) 1 UNIT/0.01 ML UNIT SC ×3 (07:31→17:14)
[2024-09-11] MEDS: ZINC SULFATE 220 MG CAPSULE PO (08:49)
[2024-09-11] MEDS: ASCORBIC ACID 250 MG TABLET 500 MG PO ×2 (08:49→21:03)
[2024-09-11] MEDS: PANTOPRAZOLE INJ 40 MG VIAL IVP (08:49)
[2024-09-11] MEDS: INSULIN GLARGINE (Lantus) 5 UNIT/0.05 ML (PER 5 UNITS) SC (08:50)
--- NOTE | 2024-09-11 09:32 | PD.SURPROG ---
Documentation for date of: 09/11/24 Subjective Subjective Narrative: Patient seen and examined. He is resting comfortably. Pain is controlled Exam Vital Signs Temp Pulse Resp BP Pulse Ox O2 Del Method O2 Flow Rate 97.0 F 88 18 136/82 H 93 L Nasal Cannula 2 09/11/24 08:00 09/11/24 08:00 09/11/24 08:00 09/11/24 08:00 09/11/24 08:00 09/11/24 08:00 09/11/24 08:00 Constitutional Constitutional: no acute distress Routine Extremities Exam Comments: Right lower extremity amputation site with dressings clean, dry and intact Assessment & Plan Assessment Additional comments: Postop day #1 status post guillotine amputation of right leg Plan Continue IV antibiotics. Will remove dressings day after tomorrow Procedures Procedures Guillotine amputation of right leg
--- NOTE | 2024-09-11 10:03 | PC.SS ---
Patient Jose Angel Hoyos is a 54 Year old male admitted for Osteomyelitis. SS made contact with patient at bedside? to complete initial and discuss discharge disposition. Role and reason for the contact was explained to Patient. Demographic information was verified.?Patient reports she lives at home with family. Pt? identified his nephew, Stephan Causey as her surrogate decision maker [phone]. Prior to admission he was independent with all ADLs. Patient did not utilize any source of DME to assist with ambulation. Patient?s choice of pharmacy is [facility] PCP: Parminder Causey. SS inquired about SNF, patient refused and would like HH to follow for wound care. Patient just had a below the knee amputation and will need HH for wound care. At time of discharge patient will return home with HH, family will provide transportation. Discharge plan: Home with HH VS SNF Next of Kin: NephewStephan PCP: Parminder Causey
[2024-09-11] MEDS: VANCOMYCIN/NS 1 GM IVPB 200 ML IV ×2 (10:18→21:47)
--- NOTE | 2024-09-11 10:47 | PC.SS ---
SS follow up note; Dr Wade on board, patient is on IV ABX, will discharge home with HH when medically cleared. SS notified DR. Whitehead and also informed her that patient refused SNF.
[2024-09-11] MEDS: INSULIN LISPRO (AdmeLOG) 1 UNIT/0.01 ML UNIT 5 UNIT SC (11:19)
[2024-09-11] MEDS: POTASSIUM CHLORIDE 20 mEq TABCR 40 MEQ PO (11:35)
--- NOTE | 2024-09-11 12:02 | ESPR_ITS ---
<Statement entered by Nikia Francois MD - 09/23/24 14:04> I reviewed above note and agree with findings and plans. I have also personally examined the patient with medicine team and went over assessment and plan with medical team including help desk intern and resident physician. Documentation for date of: 09/11/24 Subjective Subjective Interval history: Patient was seen and examined at bedside, postop day 1, patient had a amputation of the right leg, general surgery is on board, recommended to continue current management, per general surgery once infection is controlled and his nutrition supplemented he will be taken back to the OR for formal below the knee amputation. Blood sugar must be tight controlled, we will increase long-acting insulin on top of it we will add lispro 3 times daily before each meal. Will continue close monitor, continue IV antibiotics, will follow-up with the wound culture and blood culture. Will follow-up with surgery recs. Exam Vital Signs Temp Pulse Resp BP Pulse Ox O2 Del Method O2 Flow Rate 97.0 F 88 18 136/82 H 93 L Nasal Cannula 2 09/11/24 08:00 09/11/24 08:00 09/11/24 08:00 09/11/24 08:00 09/11/24 08:00 09/11/24 08:00 09/11/24 08:00 Narrative Exam GENERAL: no acute distress, AAO x3, well nourished., HEENT: Head AT/ NC. Mucous membranes moist. PERRL. NECK: Supple, no lymphadenopathy, no carotid bruits. CARDIOVASCULAR: RRR. Normal S1/S2, No m/r/g. RESPIRATORY: CTAB. No wheezing, rhonchi, crackles. GASTROINTESTINAL: Abdomen soft, non tender no palpable masses. Bowel sounds present in all 4 quadrants. MUSCULOSKELETAL:? s/p right lower extremity amputation, dressing placed, clean and dry NEUROLOGICAL: CN II-XII grossly intact. No focal deficits. Sensation intact, symmetric. PSYCHIATRIC: Awake and alert, not agitated, normal mood and affect. INTEGUMENTARY: No obvious rashes, no jaundice, normal turgor. Objective Labs 09/11/24 04:49 09/11/24 04:49 Labs: Laboratory Results - last 24 hr 09/10/24 09/10/24 09/10/24 12:55 16:22 18:40 WBC 17.9 H RBC 4.61 Hgb 13.6 Hct 37.6 L MCV 82 MCH 29.5 MCHC 36.2 RDW Std Deviation 37.1 Plt Count 224 Neut % (Auto) 87 H Lymph % (Auto) 5 L [place] % (Auto) 6 Eos % (Auto) 0 Baso % (Auto) 1 Neut # (Auto) 15.6 H Lymph # (Auto) 0.9 L [place] # (Auto) 1.0 H Eos # (Auto) 0.0 Baso # (Auto) 0.2 Immature Gran # (Auto) 0.20 H Absolute Nucleated RBC 0.00 Immature Gran % 1 H Nucleated RBC % 0 ESR 116 H PT 12.3 H INR 1.1 APTT 32.1 Sodium 132 L Potassium 3.4 Chloride 97 L Carbon Dioxide 22.2 Anion Gap 13 BUN 28 H Creatinine 1.2 Estim Creat Clear Calc 67.6 eGFR > 60 BUN/Creatinine Ratio 23 H Glucose 427 H* Estimated Ave Glu mg/dL 160 H Hemoglobin A1c 7.2 H Calculated Osmolality 288 Lactic Acid 3.0 H 1.8 Calcium 9.0 Corrected Calcium 9.3 Phosphorus Magnesium Total Bilirubin 1.6 H ALT 21 Alkaline Phosphatase 109 Total Creatine Kinase 110 C-Reactive Prot, Quant 33.0 H Total Protein 7.2 Albumin 3.6 Globulin 3.6 H Albumin/Globulin Ratio 1.0 L Triglycerides Cholesterol LDL Cholesterol, Calc HDL Cholesterol Cholesterol/HDL Ratio Procalcitonin 37.84 H 09/11/24 04:49 WBC 13.1 H RBC 4.32 L Hgb 12.5 L Hct 36.5 L MCV 85 MCH 28.9 MCHC 34.2 RDW Std Deviation 40.2 Plt Count 91 L D Neut % (Auto) 89 H Lymph % (Auto) 7 L [place] % (Auto) 3 Eos % (Auto) 0 Baso % (Auto) 1 Neut # (Auto) 11.6 H Lymph # (Auto) 0.9 L [place] # (Auto) 0.4 Eos # (Auto) 0.0 Baso # (Auto) 0.1 Immature Gran # (Auto) 0.11 H Absolute Nucleated RBC 0.00 Immature Gran % 1 H Nucleated RBC % 0 ESR PT INR APTT Sodium 139 Potassium 3.2 L Chloride 106 Carbon Dioxide 22.5 Anion Gap 11 BUN 17 Creatinine 0.6 D Estim Creat Clear Calc 135.3 eGFR > 60 BUN/Creatinine Ratio 28 H Glucose [address] Glu mg/dL Hemoglobin A1c Calculated Osmolality 287 Lactic Acid Calcium 8.2 L Corrected Calcium 9.0 Phosphorus 1.8 L Magnesium 1.9 Total Bilirubin 1.0 D ALT 20 Alkaline Phosphatase 88 D Total Creatine Kinase C-Reactive Prot, Quant Total Protein 6.2 Albumin 3.0 L D Globulin 3.2 Albumin/Globulin Ratio 0.9 L Triglycerides 188 H Cholesterol 88 L LDL Cholesterol, Calc 39 HDL Cholesterol 11 L Cholesterol/HDL Ratio 8.0 H Procalcitonin Quality Measures Quality Measures none Assessment & Plan Assessment Current Active Medications: Generic Name Dose Route Start Last Admin Trade Name Freq PRN Reason Stop Dose Admin Acetaminophen 650 mg 09/10/24 18:44 Acetaminophen 325 Mg Tablet PO 10/10/24 17:53 Q6H PRN PAIN OR FEVER > 101 Hydrocodone Bitart/Acetaminophen 1 tab 09/10/24 18:36 Hydrocodone/Apap 5/325 Tablet PO 09/15/24 18:35 Q6HR PRN PAIN SCALE 4-6 (Moderate Ascorbic Acid 500 mg 09/10/24 21:00 09/11/24 08:49 Ascorbic Acid 250 Mg Tablet PO 10/10/24 20:59 500 mg BID LEONIDAS Administration Dextrose 25 ml 09/10/24 18:04 Dextrose 50%-Water Inj 50 Ml Syringe IV 10/10/24 18:03 Q15MIN PRN BG 50-70 responsive npo pt Dextrose 50 ml 09/10/24 18:04 Dextrose 50%-Water Inj 50 Ml Syringe IV 10/10/24 18:03 Q15MIN PRN BG <50 OR BG <70 & pt unresponsive Docusate Sodium 100 mg 09/10/24 21:00 09/11/24 08:50 Docusate Sod 100 Mg Capsule PO 10/10/24 20:59 Not Given BID LEONIDAS Protocol Glucagon 1 mg 09/10/24 18:04 Glucagon Inj 1 Mg Vial IM Q15MIN PRN BG <70, and no IV access Piperacillin/Tazobactam/Dextrose 3.375 gm in 50 mls @ 12.5 mls/hr 09/10/24 22:00 09/11/24 05:04 Zosyn IV 09/17/24 21:59 12.5 mls/hr Q8HR LEONIDAS Administration Vancomycin/Sodium Chloride 200 mls @ 120 mls/hr 09/10/24 22:00 06/08/25 10:18 Vancomycin/Ns 1 Gm Ivpb IV 09/17/24 21:59 120 mls/hr Q12H LEONIDAS Administration Protocol Lactated Ringer's 1,000 mls @ 150 mls/hr 09/10/24 18:36 09/11/24 04:35 Lactated Ringers IV 10/10/24 18:35 150 mls/hr .Q6H40M LEONIDAS Administration Insulin Glargine 5 unit 09/11/24 09:00 09/11/24 08:50 Insulin Glargine (Lantus) 5 Unit/0.05 Ml (Per 5 Units) SC 10/11/24 08:59 5 unit QDAY LEONIDAS Administration Insulin Human Lispro 0 unit 09/11/24 07:30 09/11/24 11:20 Insulin Lispro (Admelog) 1 Unit/0.01 Ml Unit SC 10/11/24 07:29 5 unit AC LEONIDAS Administration Protocol Morphine Sulfate 2 mg 09/10/24 18:36 Morphine Sulf Inj 10 Mg/Ml Vial IVP 09/15/24 18:35 Q4HR PRN PAIN SCALE 7-10 (Severe Ondansetron HCl 4 mg 09/10/24 17:59 Ondansetron Inj 2 Mg/Ml Inj 2 Ml IVP 10/10/24 17:58 Q6H PRN NAUSEA OR VOMITING Protocol Pantoprazole Sodium 40 mg 09/11/24 09:00 09/11/24 08:49 Pantoprazole Inj 40 Mg Vial IVP 10/11/24 08:59 40 mg QDAY LEONIDAS Administration Pharmacy Consult 1 each 09/11/24 09:00 Vancomycin Pharmacy To Dose 1 Each Each IV 10/11/24 08:59 QDAY PRN PROTOCOL Sennosides 1 tab 09/11/24 09:00 09/11/24 08:48 Senna Tablet PO 10/11/24 08:59 Not Given QDAY LEONIDAS Protocol Zinc Sulfate 220 mg 09/11/24 09:00 09/11/24 08:49 Zinc Sulfate 220 Mg Capsule PO 10/11/24 08:59 220 mg QDAY LEONIDAS Administration Plan 54-year-old male with past medical history of uncontrolled diabetes was admitted for necrotizing fasciitis needing surgical evaluation. #Necrotizing fasciitis s/p amputation, post opd #1 #Osteomyelitis #Severe lower extremity pain, erythema secondary due to above Patient presents with chief complaints of lower extremity edema, patient reports severe pain out of proportion, had episode of fever and chills. Patient also had a recent trauma of the leg. Foot x-ray revealed osteomyelitis of the proximal phalanx of the third digit, distal second and third metatarsals, and air in the soft tissue near the lateral ankle and metatarsals. A CT scan of the foot was ordered and demonstrated extensive soft tissue infection, osteomyelitis of the proximal phalanx of the 2nd and 3rd digits, and early osteomyelitis of the distal 2nd and 3rd metatarsals. -Vanco and Zosyn -Fluid resuscitation -Continue maintenance fluids -Follow-up with blood/wound cultures -Tight control of blood sugar -Pain management as needed -Follow-up with surgery recs #Uncontrolled diabetes mellitus type 2 Patient presented with glucose of about 400 A1c 7.2 Patient is not on any home medication Patient was given 10 units of subcu lispro -Lantus 10 daily -Lispro 3 3 times daily with meals -Insulin sliding scale -Adjust based on blood sugar -Patient will need diabetic education upon discharge -Strict sugar control to optimize wound healing Disposition:telemetry DVT prophylaxis: SCDs GI prophylaxis: PPI Diet: Low carb consistent Lines: PIV CODE STATUS:Full code Patient care was discussed with attending physician Dr. Priscila Whitehead MD PGY-2
[2024-09-11] MEDS: NAPH,KPH MBDB 1 PACKET (1.5 GM) PO (17:14)
[2024-09-11] MEDS: INSULIN LISPRO (AdmeLOG) 1 UNIT/0.01 ML UNIT 2 UNIT SC (17:15)
[2024-09-11] MEDS: ATORVASTATIN CALCIUM 20 MG TABLET 40 MG PO (21:03)
[2024-09-11 21:39] LABS: Vancomycin,Trough 8.1 mcg/mL (5.0-10.0)
[2024-09-12] VITALS (9 sets, daily range): BP systolic 124–152; BP diastolic 60–90; PULSE 67–79; RESP 13–30; TEMP 36.2–37.1; O2SAT 94–98; BMI 29.9
[2024-09-12] MEDS: PIPER/TAZO 3.375 GM PREMIX 3.375 GM/50 ML BAG IV ×3 (05:14→23:03)
[2024-09-12] MEDS: RINGERS LACTATED 1000 ML 1,000 ML 150 ML IV ×2 (05:14→14:19)
[2024-09-12 06:08] LABS: Basophils # (Auto) 0.1 Thou/mm3 (0.0-0.2); Basophils % (Auto) 1 % (0-2.5); Eosinophils % (Auto) 0 % (0-10); Immature Granulocytes % (Auto) 1 % (0-0); Immature Granulocytes Auto 0.21 Thou/mm3 (0.00-0.00); Lymphocytes # (Auto) 1.8 Thou/mm3 (1.0-4.8); Lymphocytes % (Auto) 11 % (10-50); Mean Corpuscular HGB Conc 35.1 g/dl (31.0-37.0); Mean Corpuscular Hemoglobin 29.4 pg (25.0-35.0); Mean Corpuscular Volume 84 fL (80-100); Monocytes % (Auto) 6 % (0-12); Neutrophils # (Auto) 13.3 Thou/mm3 (1.8-7.7); Neutrophils % (Auto) 81 % (37-80); Nucleated Red Blood Cell # 0.03 Thou/mm3 (0.00-0.00); Nucleated Red Blood Cell % 0 /100 WBC (0); Platelet Count 123 Thou/mm3 (140-440); RDW Standard Deviation 40.1 fL (35.1-43.9); Red Blood Count 4.42 Miln/mm3 (4.50-5.90); White Blood Count 16.5 Thou/mm3 (3.8-10.6)
[2024-09-12 06:14] LABS: Alanine Aminotransferase 34 U/L (10-49); Albumin, Serum 2.7 gm/dL (3.5-5.0); Albumin/Globulin Ratio 0.9 (1.2-2.2); Alkaline Phosphatase 112 U/L (46-116); Anion Gap 11 (7-16); BUN/Creatinine Ratio 27 Ratio (12-20); Bilirubin,Total 0.8 mg/dL (0.3-1.2); Blood Urea Nitrogen 16 mg/dL (9-23); Calcium 8.1 mg/dL (8.3-10.6); Calcium (Corrected) 9.1 mg/dL (8.5-10.1); Carbon Dioxide 22.7 mMol/L (20.0-31.0); Chloride 106 mMol/L (98-107); Creatinine (Component) 0.6 mg/dL (0.6-1.3); Estimated Creatinine Clearance 135.3 mL/min (>60); Glucose 250 mg/dL (74-106); Magnesium 1.8 mg/dL (1.6-2.6); Osmolality,Calculated 288 (275-295); Phosphorous 2.2 mg/dL (2.4-5.1); Potassium 3.6 mMol/L (3.4-5.1); Sodium 140 mMol/L (136-145); Total Protein 5.7 gm/dL (5.7-8.2); eGFR > 60 See Note
[2024-09-12] MEDS: PANTOPRAZOLE 40 MG TABLET PO (08:07)
[2024-09-12] MEDS: DOCUSATE SOD 100 MG CAPSULE PO ×2 (08:07→20:10)
[2024-09-12] MEDS: INSULIN LISPRO (AdmeLOG) 1 UNIT/0.01 ML UNIT SC ×2 (08:07→12:28)
[2024-09-12] MEDS: INSULIN LISPRO (AdmeLOG) 1 UNIT/0.01 ML UNIT 2 UNIT SC (08:07)
[2024-09-12] MEDS: ZINC SULFATE 220 MG CAPSULE PO (08:07)
[2024-09-12] MEDS: ASCORBIC ACID 250 MG TABLET 500 MG PO ×2 (08:07→20:10)
[2024-09-12] MEDS: INSULIN GLARGINE (Lantus) 5 UNIT/0.05 ML (PER 5 UNITS) 10 UNIT SC (08:08)
[2024-09-12] MEDS: SENNA TABLET 1 TAB PO (08:19)
[2024-09-12] MEDS: VANCOMYCIN/NS 1 GM IVPB 200 ML IV ×3 (10:00→21:31)
[2024-09-12] MEDS: NAPH,KPH MBDB 1 PACKET (1.5 GM) PO (10:06)
[2024-09-12] MEDS: INSULIN GLARGINE (Lantus) 5 UNIT/0.05 ML (PER 5 UNITS) SC (10:06)
--- NOTE | 2024-09-12 11:58 | PD.RESPRO ---
Documentation for date of: 09/12/24 Subjective Subjective Interval history: No acute overnight events. Seen and examined at bedside and patient denies any pain, fevers, chills, sweats overnight. Vital signs stable, leukocytosis slightly up trended in setting of recent procedure from 13 to 16, but hemoglobin stable. CHEM panel largely unremarkable other than low phosphorus which was repleted. Will continue with IV antibiotics and dressings to be changed on 09/13. Otherwise, will continue to monitor blood sugars and when WBC normal and albumin greater than 3, possible to go back to the OR for Exam Vital Signs Temp Pulse Resp BP Pulse Ox O2 Del Method O2 Flow Rate 97.1 F 79 20 146/60 H 95 Nasal Cannula 3 09/12/24 08:00 09/12/24 08:00 09/12/24 08:00 09/12/24 08:00 09/12/24 08:00 09/12/24 08:00 09/12/24 08:00 Narrative Exam GENERAL: no acute distress, AAO x3, well nourished., HEENT: Head AT/ NC. Mucous membranes moist. PERRL. NECK: Supple, no lymphadenopathy, no carotid bruits. CARDIOVASCULAR: RRR. Normal S1/S2, No m/r/g. RESPIRATORY: CTAB. No wheezing, rhonchi, crackles. GASTROINTESTINAL: Abdomen soft, non tender no palpable masses. Bowel sounds present in all 4 quadrants. MUSCULOSKELETAL:? s/p right lower extremity amputation, dressings placed NEUROLOGICAL: CN II-XII grossly intact. No focal deficits. Sensation intact, symmetric. PSYCHIATRIC: Awake and alert, not agitated, normal mood and affect. INTEGUMENTARY: No obvious rashes, no jaundice, normal turgor. Objective Labs 09/13/24 04:30 09/13/24 04:30 Labs: Laboratory Results - last 24 hr 09/11/24 09/12/24 21:01 04:47 WBC 16.5 H RBC 4.42 L Hgb 13.0 L Hct 37.0 L MCV 84 MCH 29.4 MCHC 35.1 RDW Std Deviation 40.1 Plt Count 123 L D Neut % (Auto) 81 H Lymph % (Auto) 11 [place] % (Auto) 6 Eos % (Auto) 0 Baso % (Auto) 1 Neut # (Auto) 13.3 H Lymph # (Auto) 1.8 [place] # (Auto) 1.0 H Eos # (Auto) 0.0 Baso # (Auto) 0.1 Immature Gran # (Auto) 0.21 H Absolute Nucleated RBC 0.03 H Immature Gran % 1 H Nucleated RBC % 0 Sodium 140 Potassium 3.6 Chloride 106 Carbon Dioxide 22.7 Anion Gap 11 BUN 16 Creatinine 0.6 Estim Creat Clear Calc 135.3 eGFR > 60 BUN/Creatinine Ratio 27 H Glucose 250 H Calculated Osmolality 288 Calcium 8.1 L Corrected Calcium 9.1 Phosphorus 2.2 L Magnesium 1.8 Total Bilirubin 0.8 ALT 34 Alkaline Phosphatase 112 D Total Protein 5.7 Albumin 2.7 L Globulin 3.0 Albumin/Globulin Ratio 0.9 L Vancomycin Trough 8.1 Quality Measures Quality Measures none Assessment & Plan Assessment Current Active Medications: Generic Name Dose Route Start Last Admin Trade Name Freq PRN Reason Stop Dose Admin Acetaminophen 650 mg 09/10/24 18:44 Acetaminophen 325 Mg Tablet PO 10/10/24 17:53 Q6H PRN PAIN OR FEVER > 101 Hydrocodone Bitart/Acetaminophen 1 tab 09/10/24 18:36 Hydrocodone/Apap 5/325 Tablet PO 09/15/24 18:35 Q6HR PRN PAIN SCALE 4-6 (Moderate Ascorbic Acid 500 mg 09/10/24 21:00 09/12/24 08:07 Ascorbic Acid 250 Mg Tablet PO 10/10/24 20:59 500 mg BID LEONIDAS Administration Atorvastatin Calcium 40 mg 09/11/24 21:00 09/11/24 21:03 Atorvastatin Calcium 20 Mg Tablet PO 10/11/24 20:59 40 mg HS LEONIDAS Administration Dextrose 25 ml 09/10/24 18:04 Dextrose 50%-Water Inj 50 Ml Syringe IV 10/10/24 18:03 Q15MIN PRN BG 50-70 responsive npo pt Dextrose 50 ml 09/10/24 18:04 Dextrose 50%-Water Inj 50 Ml Syringe IV 10/10/24 18:03 Q15MIN PRN BG <50 OR BG <70 & pt unresponsive Docusate Sodium 100 mg 09/10/24 21:00 09/12/24 08:07 Docusate Sod 100 Mg Capsule PO 10/10/24 20:59 100 mg BID LEONIDAS Administration Protocol Glucagon 1 mg 09/10/24 18:04 Glucagon Inj 1 Mg Vial IM Q15MIN PRN BG <70, and no IV access Piperacillin/Tazobactam/Dextrose 3.375 gm in 50 mls @ 12.5 mls/hr 09/10/24 22:00 09/12/24 05:14 Zosyn IV 09/17/24 21:59 12.5 mls/hr Q8HR LEONIDAS Administration Lactated Ringer's 1,000 mls @ 150 mls/hr 09/10/24 18:36 09/12/24 05:14 Lactated Ringers IV 10/10/24 18:35 150 mls/hr .Q6H40M LEONIDAS Administration Vancomycin/Sodium Chloride 200 mls @ 120 mls/hr 09/12/24 09:00 09/12/24 10:00 Vancomycin/Ns 1 Gm Ivpb IV 09/19/24 08:59 120 mls/hr Q8HR LEONIDAS Administration Protocol Insulin Glargine 15 unit 09/13/24 09:00 Insulin Glargine (Lantus) 5 Unit/0.05 Ml (Per 5 Units) SC 10/13/24 08:59 QDAY LEONIDAS Insulin Human Lispro 0 unit 09/11/24 07:30 09/12/24 08:07 Insulin Lispro (Admelog) 1 Unit/0.01 Ml Unit SC 10/11/24 07:29 3 unit AC [facility] Administration Protocol Insulin Human Lispro 5 unit 09/12/24 12:00 Insulin Lispro (Admelog) 1 Unit/0.01 Ml Unit SC 10/12/24 11:59 TIDWM LEONIDAS Morphine Sulfate 2 mg 09/10/24 18:36 Morphine Sulf Inj 10 Mg/Ml Vial IVP 09/15/24 18:35 Q4HR PRN PAIN SCALE 7-10 (Severe Ondansetron HCl 4 mg 09/10/24 17:59 Ondansetron Inj 2 Mg/Ml Inj 2 Ml IVP 10/10/24 17:58 Q6H PRN NAUSEA OR VOMITING Protocol Pantoprazole Sodium 40 mg 09/12/24 09:00 09/12/24 08:07 Pantoprazole 40 Mg Tablet PO 10/12/24 08:59 40 mg QDAY LEONIDAS Administration Pharmacy Consult 1 each 09/11/24 09:00 Vancomycin Pharmacy To Dose 1 Each Each IV 10/11/24 08:59 QDAY PRN PROTOCOL Sennosides 1 tab 09/11/24 09:00 09/12/24 08:19 Senna Tablet PO 10/11/24 08:59 1 tab QDAY LEONIDAS Administration Protocol Zinc Sulfate 220 mg 09/11/24 09:00 09/12/24 08:07 Zinc Sulfate 220 Mg Capsule PO 10/11/24 08:59 220 mg QDAY LENOIDAS Administration Plan Jose Angel Hoyos is a 54-year-old male with a past medical history of type 2 diabetes mellitus who is admitted for management of necrotizing fasciitis. #Necrotizing fasciitis #Osteomyelitis Presents with complaint of lower extremity edema, pain on proportion, with associated fever and chills after recent trauma to lower extremity. XR of foot revealed osteomyelitis of proximal phalanx of third digit, distal 2nd and 3rd metatarsals, and air in the soft tissue near the lateral ankle and metatarsals. CT scan of the foot showed extensive soft tissue infection, osteomyelitis of the proximal phalanx of the 2nd and 3rd digits, and early osteomyelitis of the distal 2nd and 3rd metatarsals. ? General Surgery following, appreciate recommendations ? Infectious disease following, appreciate recommendations ? Vancomycin and Zosyn (09/10-) ? Blood culture 09/10: NGTD ? Wound culture 09/10: Gram stain showing GPC ? Pain management: norco and morphine #Type 2 diabetes mellitus A1c 7.2%, not on any home medications. Presented with blood glucose 400. ? Glargine 15 units daily ? Lispro 5 untis TIDWM ? Hypoglycemic protocol in place ? Strict blood sugar control to optimize wound healing Hospital management: Disposition: POD day 1, IV antibiotics, pending cultures and possible OR Diet: diabetic Lines: PIV DVT prophylaxis: SDD of right lower extremity GI prophylaxis: pantoprazole 40 mg daily Carr: placed CODE STATUS: full code ----- Plan discussed with attending physician Dr. Sandra Foster MD PGY-1 Internal Medicine Attending Provider Attestation/Addendum I, Marivel Flores DO, attest that I was physically present for the hyde portions of the service and evaluated the patient with the resident and I reviewed and discussed the case with the resident and agree with the resident's findings and plans of care as documented above Patient seen and evaluated this AM. No acute events overnight. Patient reports minimal pain. Dressing over right lower extremity is clean, dry and intact. He is POD 2. Continue IV abx, follow up with surgeon regarding BKA.
[2024-09-12] MEDS: INSULIN LISPRO (AdmeLOG) 1 UNIT/0.01 ML UNIT 5 UNIT SC (12:28)
[2024-09-12] MEDS: ATORVASTATIN CALCIUM 20 MG TABLET 40 MG PO (20:10)
[2024-09-13] VITALS (7 sets, daily range): BP systolic 142–160; BP diastolic 82–94; PULSE 66–100; RESP 15–95; TEMP 36.2–37.2; O2SAT 93–97; BMI 31.8
[2024-09-13] MEDS: RINGERS LACTATED 1000 ML 1,000 ML 150 ML IV (02:06)
[2024-09-13] MEDS: PIPER/TAZO 3.375 GM PREMIX 3.375 GM/50 ML BAG IV ×3 (05:19→22:48)
[2024-09-13 05:21] LABS: Basophils % (Auto) 0 % (0-2.5); Eosinophils # (Auto) 0.1 Thou/mm3 (0.0-0.5); Eosinophils % (Auto) 1 % (0-10); Hematocrit 36.5 % (41.0-53.0); Hemoglobin 12.8 g/dL (13.5-16.0); Immature Granulocytes % (Auto) 1 % (0-0); Lymphocytes # (Auto) 2.8 Thou/mm3 (1.0-4.8); Lymphocytes % (Auto) 25 % (10-50); Mean Corpuscular HGB Conc 35.1 g/dl (31.0-37.0); Mean Corpuscular Hemoglobin 28.8 pg (25.0-35.0); Mean Corpuscular Volume 82 fL (80-100); Monocytes # (Auto) 1.1 Thou/mm3 (0.0-0.8); Monocytes % (Auto) 10 % (0-12); Neutrophils # (Auto) 7.1 Thou/mm3 (1.8-7.7); Neutrophils % (Auto) 63 % (37-80); Nucleated Red Blood Cell # 0.02 Thou/mm3 (0.00-0.00); Nucleated Red Blood Cell % 0 /100 WBC (0); Platelet Count 165 Thou/mm3 (140-440); RDW Standard Deviation 39.8 fL (35.1-43.9); Red Blood Count 4.44 Miln/mm3 (4.50-5.90); White Blood Count 11.2 Thou/mm3 (3.8-10.6)
[2024-09-13 05:44] LABS: Alanine Aminotransferase 44 U/L (10-49); Albumin, Serum 2.8 gm/dL (3.5-5.0); Albumin/Globulin Ratio 0.9 (1.2-2.2); Alkaline Phosphatase 130 U/L (46-116); Anion Gap 11 (7-16); BUN/Creatinine Ratio 27 Ratio (12-20); Bilirubin,Total 0.7 mg/dL (0.3-1.2); Blood Urea Nitrogen 16 mg/dL (9-23); Calcium 8.2 mg/dL (8.3-10.6); Calcium (Corrected) 9.2 mg/dL (8.5-10.1); Carbon Dioxide 27.8 mMol/L (20.0-31.0); Chloride 104 mMol/L (98-107); Creatinine (Component) 0.6 mg/dL (0.6-1.3); Estimated Creatinine Clearance 132.6 mL/min (>60); Globulin 3.1 gm/dL (2.3-3.5); Glucose 103 mg/dL (74-106); Magnesium 1.7 mg/dL (1.6-2.6); Osmolality,Calculated 286 (275-295); Phosphorous 3.1 mg/dL (2.4-5.1); Potassium 3.2 mMol/L (3.4-5.1); Sodium 143 mMol/L (136-145); Total Protein 5.9 gm/dL (5.7-8.2); Vancomycin,Trough 17.7 mcg/mL (5.0-10.0); eGFR > 60 See Note
[2024-09-13] MEDS: VANCOMYCIN/NS 1 GM IVPB 200 ML IV (07:16)
[2024-09-13] MEDS: DOCUSATE SOD 100 MG CAPSULE PO ×2 (08:07→20:15)
[2024-09-13] MEDS: ZINC SULFATE 220 MG CAPSULE PO (08:07)
[2024-09-13] MEDS: SENNA TABLET 1 TAB PO (08:07)
[2024-09-13] MEDS: PANTOPRAZOLE 40 MG TABLET PO (08:07)
[2024-09-13] MEDS: ASCORBIC ACID 250 MG TABLET 500 MG PO ×2 (08:07→20:15)
[2024-09-13] MEDS: INSULIN GLARGINE (Lantus) 5 UNIT/0.05 ML (PER 5 UNITS) 15 UNIT SC (08:07)
[2024-09-13] MEDS: INSULIN LISPRO (AdmeLOG) 1 UNIT/0.01 ML UNIT 5 UNIT SC ×3 (08:08→17:17)
[2024-09-13] MEDS: POTASSIUM CHLORIDE 20 mEq TABCR 40 MEQ PO (08:46)
--- NOTE | 2024-09-13 10:38 | ESPR_ITS ---
<Statement entered by Sapphire Whitehead MD - 09/13/24 12:55> Patient is a 54-year-old male with past medical history of uncontrolled diabetes was admitted for necrotizing fasciitis treatment and management requiring emergent surgical intervention. 09/23/2024 The patient was seen and examined at the bedside. No acute events were noted overnight. The patient continues to report mild pain but denies any fever, chills, nausea, or vomiting. Upon evaluation, the patient was hemodynamically stable. Laboratory results indicate an improvement in leukocytosis, and the hemoglobin level remains stable, with no signs of active bleeding. We are focusing on tight blood sugar control to promote optimal wound healing. The patient will continue on vancomycin and Zosyn. Blood cultures werenegative; however, the wound culture identified Gram-positive cocci Pain management will continue as needed. We will continue to monitor and control blood sugar to support wound healing. Further management will be based on recommendations from Dr. Wade. I personally saw and examined the patient and discussed the assessment and plan with the entire medicine team, including my attending , Sapphire Whitehead M.D. PGY-2 Disclaimer: Despite multiple revisions, due to the dictation software being used, the document bellow may not be free of grammatical errors including phonetic/typographic errors. However, this does not deter from our commitment to providing health care in the patient's best interest in mind. Documentation for date of: 09/13/24 Subjective Subjective Interval history: No acute overnight events. Seen and examined at bedside and patient states his pain is 7/10 but denies any fever, chills, sweats, N/V. Vital signs stable, leukocytosis improving, hemoglobin stable, and blood sugars controlled. Dr. Wade to evaluate patient today and possible to bring back to OR once luekocytosis normalizes and albumin > 3.0, so will give albumin today. Will continue vancomycin and zosyn, pending cultures. ID also following and will wait for further recommendations. Exam Vital Signs Temp Pulse Resp BP Pulse Ox O2 Del Method O2 Flow Rate 97.7 F 71 15 145/89 H 94 L Humidified Nasal Cannula 2 09/13/24 08:00 09/13/24 08:00 09/13/24 08:00 09/13/24 08:00 09/13/24 08:00 09/13/24 08:00 09/13/24 08:00 Narrative Exam GENERAL: no acute distress, AAO x3, well nourished. HEENT: Head AT/ NC. Mucous membranes moist. PERRL. NECK: Supple, no lymphadenopathy, no carotid bruits. CARDIOVASCULAR: RRR. Normal S1/S2, No m/r/g. RESPIRATORY: CTAB. No wheezing, rhonchi, crackles. GASTROINTESTINAL: Abdomen soft, non tender no palpable masses. Bowel sounds present in all 4 quadrants. MUSCULOSKELETAL:? s/p right lower extremity amputation, dressings placed NEUROLOGICAL: CN II-XII grossly intact. No focal deficits. Sensation intact, symmetric. PSYCHIATRIC: Awake and alert, not agitated, normal mood and affect. INTEGUMENTARY: No obvious rashes, no jaundice, normal turgor. Objective Labs 09/13/24 04:30 09/13/24 04:30 Labs: Laboratory Results - last 24 hr 09/13/24 04:30 WBC 11.2 H D RBC 4.44 L Hgb 12.8 L Hct 36.5 L MCV 82 MCH 28.8 MCHC 35.1 RDW Std Deviation 39.8 Plt Count 165 D Neut % (Auto) 63 Lymph % (Auto) 25 [place] % (Auto) 10 Eos % (Auto) 1 Baso % (Auto) 0 Neut # (Auto) 7.1 Lymph # (Auto) 2.8 [place] # (Auto) 1.1 H Eos # (Auto) 0.1 Baso # (Auto) 0.0 Immature Gran # (Auto) 0.10 H Absolute Nucleated RBC 0.02 H Immature Gran % 1 H Nucleated RBC % 0 Sodium 143 Potassium 3.2 L Chloride 104 Carbon Dioxide 27.8 Anion Gap 11 BUN 16 Creatinine 0.6 Estim Creat Clear Calc 132.6 eGFR > 60 BUN/Creatinine Ratio 27 H Glucose 103 D Calculated Osmolality 286 Calcium 8.2 L Corrected Calcium 9.2 Phosphorus 3.1 Magnesium 1.7 Total Bilirubin 0.7 ALT 44 Alkaline Phosphatase 130 H Total Protein 5.9 Albumin 2.8 L Globulin 3.1 Albumin/Globulin Ratio 0.9 L Vancomycin Trough 17.7 H Quality Measures Quality Measures none Assessment & Plan Assessment Current Active Medications: Generic Name Dose Route Start Last Admin Trade Name Freq PRN Reason Stop Dose Admin Acetaminophen 650 mg 09/10/24 18:44 Acetaminophen 325 Mg Tablet PO 10/10/24 17:53 Q6H PRN PAIN OR FEVER > 101 Hydrocodone Bitart/Acetaminophen 1 tab 09/10/24 18:36 Hydrocodone/Apap 5/325 Tablet PO 09/15/24 18:35 Q6HR PRN PAIN SCALE 4-6 (Moderate Ascorbic Acid 500 mg 09/10/24 21:00 09/13/24 08:07 Ascorbic Acid 250 Mg Tablet PO 10/10/24 20:59 500 mg BID LEONDIAS Administration Atorvastatin Calcium 40 mg 09/11/24 21:00 09/12/24 20:10 Atorvastatin Calcium 20 Mg Tablet PO 10/11/24 20:59 40 mg HS LEONIDAS Administration Dextrose 25 ml 09/10/24 18:04 Dextrose 50%-Water Inj 50 Ml Syringe IV 10/10/24 18:03 Q15MIN PRN BG 50-70 responsive npo pt Dextrose 50 ml 09/10/24 18:04 Dextrose 50%-Water Inj 50 Ml Syringe IV 10/10/24 18:03 Q15MIN PRN BG <50 OR BG <70 & pt unresponsive Docusate Sodium 100 mg 09/10/24 21:00 09/13/24 08:07 Docusate Sod 100 Mg Capsule PO 10/10/24 20:59 100 mg BID LEONIDAS Administration Protocol Glucagon 1 mg 09/10/24 18:04 Glucagon Inj 1 Mg Vial IM Q15MIN PRN BG <70, and no IV access Piperacillin/Tazobactam/Dextrose 3.375 gm in 50 mls @ 12.5 mls/hr 09/10/24 22:00 09/13/24 05:19 Zosyn IV 09/17/24 21:59 12.5 mls/hr Q8HR LEONIDAS Administration Lactated Ringer's 1,000 mls @ 150 mls/hr 09/10/24 18:36 09/13/24 02:06 Lactated Ringers IV 10/10/24 18:35 150 mls/hr .[id number] LEONIDAS Administration Vancomycin/Sodium Chloride 750 mg in 150 mls @ 120 mls/hr 09/13/24 14:00 Vancomycin/Ns 750 Mg Ivpb IV 09/20/24 13:59 Q8HR LEONIDAS Insulin Glargine 15 unit 09/13/24 09:00 09/13/24 08:07 Insulin Glargine (Lantus) 5 Unit/0.05 Ml (Per 5 Units) SC 10/13/24 08:59 15 unit QDAY LEONIDAS Administration Insulin Human Lispro 0 unit 09/11/24 07:30 09/13/24 07:38 Insulin Lispro (Admelog) 1 Unit/0.01 Ml Unit SC 10/11/24 07:29 Not Given AC LEONIDAS Protocol Insulin Human Lispro 5 unit 09/12/24 12:00 09/13/24 08:08 Insulin Lispro (Admelog) 1 Unit/0.01 Ml Unit SC 10/12/24 11:59 5 unit TIDWM LEONIDAS Administration Morphine Sulfate 2 mg 09/10/24 18:36 Morphine Sulf Inj 10 Mg/Ml Vial IVP 09/15/24 18:35 Q4HR PRN PAIN SCALE 7-10 (Severe Ondansetron HCl 4 mg 09/10/24 17:59 Ondansetron Inj 2 Mg/Ml Inj 2 Ml IVP 10/10/24 17:58 Q6H PRN NAUSEA OR VOMITING Protocol Pantoprazole Sodium 40 mg 09/12/24 09:00 09/13/24 08:07 Pantoprazole 40 Mg Tablet PO 10/12/24 08:59 40 mg QDAY LEONIDAS Administration Pharmacy Consult 1 each 09/11/24 09:00 Vancomycin Pharmacy To Dose 1 Each Each IV 10/11/24 08:59 QDAY PRN PROTOCOL Sennosides 1 tab 09/11/24 09:00 09/13/24 08:07 Senna Tablet PO 10/11/24 08:59 1 tab QDAY [facility] Administration Protocol Zinc Sulfate 220 mg 09/11/24 09:00 09/13/24 08:07 Zinc Sulfate 220 Mg Capsule PO 10/11/24 08:59 220 mg QDAY LEONIDAS Administration Plan Jose Angel Hoyos is a 54-year-old male with a past medical history of type 2 diabetes mellitus who is admitted for management of necrotizing fasciitis. #Necrotizing fasciitis, s/p guillotine amputation #Osteomyelitis Presents with complaint of lower extremity edema, pain on proportion, with associated fever and chills after recent trauma to lower extremity. XR of foot revealed osteomyelitis of proximal phalanx of third digit, distal 2nd and 3rd metatarsals, and air in the soft tissue near the lateral ankle and metatarsals. CT scan of the foot showed extensive soft tissue infection, osteomyelitis of the proximal phalanx of the 2nd and 3rd digits, and early osteomyelitis of the distal 2nd and 3rd metatarsals. ? General Surgery following, appreciate recommendations ? Infectious disease following, appreciate recommendations ? Vancomycin and Zosyn (09/10-) ? Blood culture 09/10: NGTD ? Wound culture 09/10: Gram stain showing GPC ? Pain management: norco and morphine #Type 2 diabetes mellitus A1c 7.2%, not on any home medications. Presented with blood glucose 400. ? Glargine 15 units daily ? Lispro 5 untis TIDWM ? Hypoglycemic protocol in place ? Strict blood sugar control to optimize wound healing Hospital management: Disposition: POD day 1, IV antibiotics, pending cultures and possible OR Diet: diabetic Lines: PIV DVT prophylaxis: SCD of right lower extremity GI prophylaxis: pantoprazole 40 mg daily Carr: placed CODE STATUS: full code ----- Plan discussed with attending physician Dr. Otis Foster MD PGY-1 Internal Medicine Attending Provider Attestation/Addendum I have examined the patient, reviewed labs and imaging findings, discussed the case with the resident(s), and reviewed entered orders. I agree with the plan of care as outlined in this note, with these additional summaries/recommendations: Patient seen at bedside. No acute overnight events. Continue IV antibiotics and will de-escalate once cultures available. Surgery planning on formal below the knee amputation on if WBC and albumin continue to improve. Continue wound care and as needed pain management. Mild hypokalemia present and replacement given. Please see residents note for additional details of management. Dr. Otis MD
--- NOTE | 2024-09-13 12:30 | PC.NURSE ---
Dr. Wade at bedside. Dressing to RLE changed. Wound spray, fluffs and kerlix secured with medipore tape. Per Dr. Wade, no dressing change ordered at this time.
[2024-09-13] MEDS: ALBUMIN HUMAN 25% IVPB 12.5 GM/50 ML BTL IV (13:00)
[2024-09-13] MEDS: VANCOMYCIN/NS 750 MG IVPB 750 MG/150 ML BAG 120 MG IV ×2 (13:27→21:06)
--- NOTE | 2024-09-13 14:01 | PD.SURPROG ---
Documentation for date of: 09/13/24 Subjective Subjective Narrative: Patient is seen and examined. His pain is improving. Exam Vital Signs Temp Pulse Resp BP Pulse Ox O2 Del Method O2 Flow Rate 98.9 F 100 20 149/86 H 95 Nasal Cannula 2 09/13/24 12:00 09/13/24 12:00 09/13/24 12:00 09/13/24 12:00 09/13/24 12:00 09/13/24 12:09/13/24 12:00 Constitutional Constitutional: no acute distress Routine Extremities Exam Comments: Right leg guillotine amputation site dressings removed, no bleeding or drainage Assessment & Plan Assessment Additional comments: Postop day #3 status post guillotine amputation of right leg Plan Continue IV antibiotics. If his WBC and albumin continue to improve we will plan for formal below the knee amputation on . Procedures Procedures Guillotine amputation of right leg
[2024-09-13] MEDS: ATORVASTATIN CALCIUM 20 MG TABLET 40 MG PO (20:15)
[2024-09-14] VITALS (7 sets, daily range): BP systolic 126–157; BP diastolic 77–91; PULSE 75–83; RESP 14–22; TEMP 36.2–36.7; O2SAT 92–96
[2024-09-14] MEDS: VANCOMYCIN/NS 750 MG IVPB 750 MG/150 ML BAG 120 MG IV (05:20)
[2024-09-14] MEDS: PIPER/TAZO 3.375 GM PREMIX 3.375 GM/50 ML BAG IV (06:33)
[2024-09-14] MEDS: INSULIN LISPRO (AdmeLOG) 1 UNIT/0.01 ML UNIT 5 UNIT SC ×2 (07:50→11:52)
[2024-09-14] MEDS: PANTOPRAZOLE 40 MG TABLET PO (08:29)
[2024-09-14] MEDS: INSULIN GLARGINE (Lantus) 5 UNIT/0.05 ML (PER 5 UNITS) 15 UNIT SC (08:29)
[2024-09-14] MEDS: ZINC SULFATE 220 MG CAPSULE PO (08:29)
[2024-09-14] MEDS: ASCORBIC ACID 250 MG TABLET 500 MG PO ×2 (08:29→20:15)
[2024-09-14 10:13] LABS: Basophils % (Auto) 0 % (0-2.5); Eosinophils % (Auto) 0 % (0-10); Hematocrit 38.1 % (41.0-53.0); Hemoglobin 13.3 g/dL (13.5-16.0); Immature Granulocytes % (Auto) 1 % (0-0); Immature Granulocytes Auto 0.13 Thou/mm3 (0.00-0.00); Lymphocytes # (Auto) 1.9 Thou/mm3 (1.0-4.8); Lymphocytes % (Auto) 16 % (10-50); Mean Corpuscular HGB Conc 34.9 g/dl (31.0-37.0); Mean Corpuscular Volume 83 fL (80-100); Monocytes % (Auto) 8 % (0-12); Neutrophils # (Auto) 8.6 Thou/mm3 (1.8-7.7); Neutrophils % (Auto) 74 % (37-80); Nucleated Red Blood Cell % 0 /100 WBC (0); Platelet Count 199 Thou/mm3 (140-440); RDW Standard Deviation 39.8 fL (35.1-43.9); Red Blood Count 4.59 Miln/mm3 (4.50-5.90); White Blood Count 11.6 Thou/mm3 (3.8-10.6)
[2024-09-14 10:40] LABS: Alanine Aminotransferase 37 U/L (10-49); Albumin/Globulin Ratio 0.9 (1.2-2.2); Alkaline Phosphatase 162 U/L (46-116); Anion Gap 10 (7-16); BUN/Creatinine Ratio 17 Ratio (12-20); Bilirubin,Total 0.8 mg/dL (0.3-1.2); Blood Urea Nitrogen 12 mg/dL (9-23); Calcium 8.5 mg/dL (8.3-10.6); Calcium (Corrected) 9.3 mg/dL (8.5-10.1); Carbon Dioxide 27.1 mMol/L (20.0-31.0); Chloride 101 mMol/L (98-107); Creatinine (Component) 0.7 mg/dL (0.6-1.3); Globulin 3.4 gm/dL (2.3-3.5); Glucose 153 mg/dL (74-106); Magnesium 1.8 mg/dL (1.6-2.6); Osmolality,Calculated 278 (275-295); Phosphorous 2.6 mg/dL (2.4-5.1); Potassium 3.5 mMol/L (3.4-5.1); Sodium 138 mMol/L (136-145); Total Protein 6.4 gm/dL (5.7-8.2); eGFR > 60 See Note
--- NOTE | 2024-09-14 10:44 | ESPR_ITS ---
<Statement entered by Sapphire Whitehead MD - 09/14/24 13:15> No acute overnight events Postop day 3, status post guillotine amputation of right leg Continue IV antibiotics, surgery closely following the case, WBC appears to be stable, patient is afebrile, per surgery as patient continued to improve he will plan to do formal below the knee amputation on . Blood sugar is tight control, fingerstick 140, currently patient is on Lantus of 15 unit, lispro 5 3 times daily with meals, will adjust based on requirement to control blood sugar. Diabetic education was placed, Continue current management, pain is controlled, will follow-up with surgery recs. I personally saw and examined the patient and discussed the assessment and plan with the entire medicine team, including my attending , Sapphire Whitehead M.D. PGY-2 Disclaimer: Despite multiple revisions, due to the dictation software being used, the document bellow may not be free of grammatical errors including phonetic/typographic errors. However, this does not deter from our commitment to providing health care in the patient's best interest in mind. Documentation for date of: 09/14/24 Subjective Subjective Interval history: No acute overnight events. Seen and examined at bedside and patient denies any fever, chills, sweats, nausea, vomiting. Vital signs stable, no fevers overnight. CBC showed stable leukocytosis, hemoglobin stable. Chem panel showed albumin 3.0, blood sugasr controlled, and wound culture came back positive for Aerococcus specie. No ID and sensitivities, but intrinsically resistant to vancomycin and frequently susceptible to penicillins. ID following and anticipate going to OR tomorrow. Exam Vital Signs Temp Pulse Resp BP Pulse Ox O2 Del Method O2 Flow Rate 97.6 F 81 16 146/82 H 95 Nasal Cannula 2 09/14/24 04:00 09/14/24 08:00 09/14/24 04:00 09/14/24 04:00 09/14/24 04:00 09/14/24 04:00 09/13/24 22:00 Narrative Exam GENERAL: no acute distress, AAO x3, well nourished. HEENT: Head AT/ NC. Mucous membranes moist. PERRL. NECK: Supple, no lymphadenopathy, no carotid bruits. CARDIOVASCULAR: RRR. Normal S1/S2, No m/r/g. RESPIRATORY: CTAB. No wheezing, rhonchi, crackles. GASTROINTESTINAL: Abdomen soft, non tender no palpable masses. Bowel sounds present in all 4 quadrants. MUSCULOSKELETAL:? s/p right lower extremity amputation, dressings placed NEUROLOGICAL: CN II-XII grossly intact. No focal deficits. Sensation intact, symmetric. PSYCHIATRIC: Awake and alert, not agitated, normal mood and affect. INTEGUMENTARY: No obvious rashes, no jaundice, normal turgor. Objective Labs 09/15/24 04:35 09/15/24 04:35 Labs: Laboratory Results - last 24 hr 09/14/24 09:15 Sodium 138 Potassium 3.5 Chloride 101 Carbon Dioxide 27.1 Anion Gap 10 BUN 12 Creatinine 0.7 Estim Creat Clear Calc 114.0 eGFR > 60 BUN/Creatinine Ratio 17 Glucose 153 H D Calculated Osmolality 278 Calcium 8.5 Corrected Calcium 9.3 Phosphorus 2.6 Magnesium 1.8 Total Bilirubin 0.8 ALT 37 Alkaline Phosphatase 162 H D Total Protein 6.4 Albumin 3.0 L Globulin 3.4 Albumin/Globulin Ratio 0.9 L Quality Measures Quality Measures none Assessment & Plan Assessment Current Active Medications: Generic Name Dose Route Start Last Admin Trade Name Freq PRN Reason Stop Dose Admin Acetaminophen 650 mg 09/10/24 18:44 Acetaminophen 325 Mg Tablet PO 10/10/24 17:53 Q6H PRN PAIN OR FEVER > 101 Hydrocodone Bitart/Acetaminophen 1 tab 09/10/24 18:36 Hydrocodone/Apap 5/325 Tablet PO 09/15/24 18:35 Q6HR PRN PAIN SCALE 4-6 (Moderate Ascorbic Acid 500 mg 09/10/24 21:00 09/14/24 08:29 Ascorbic Acid 250 Mg Tablet PO 10/10/24 20:59 500 mg BID LEONIDAS Administration Atorvastatin Calcium 40 mg 09/11/24 21:00 09/13/24 20:15 Atorvastatin Calcium 20 Mg Tablet PO 10/11/24 20:59 40 mg HS LEONIDAS Administration Dextrose 25 ml 09/10/24 18:04 Dextrose 50%-Water Inj 50 Ml Syringe IV 10/10/24 18:03 Q15MIN PRN BG 50-70 responsive npo pt Dextrose 50 ml 09/10/24 18:04 Dextrose 50%-Water Inj 50 Ml Syringe IV 10/10/24 18:03 Q15MIN PRN BG <50 OR BG <70 & pt unresponsive Docusate Sodium 100 mg 09/10/24 21:00 09/14/24 08:29 Docusate Sod 100 Mg Capsule PO 10/10/24 20:59 Not Given BID [facility] Protocol Glucagon 1 mg 09/10/24 18:04 Glucagon Inj 1 Mg Vial IM Q15MIN PRN BG <70, and no IV access Piperacillin/Tazobactam/Dextrose 3.375 gm in 50 mls @ 12.5 mls/hr 09/10/24 22:00 09/14/24 06:33 Zosyn IV 09/17/24 21:59 12.5 mls/hr Q8HR LEONIDAS Administration Vancomycin/Sodium Chloride 750 mg in 150 mls @ 120 mls/hr 09/13/24 14:00 09/14/24 05:20 Vancomycin/Ns 750 Mg Ivpb IV 09/20/24 13:59 120 mls/hr Q8HR LEONIDAS Administration Insulin Glargine 15 unit 09/13/24 09:00 09/14/24 08:29 Insulin Glargine (Lantus) 5 Unit/0.05 Ml (Per 5 Units) SC 10/13/24 08:59 15 unit QDAY LEONIDAS Administration Insulin Human Lispro 0 unit 09/11/24 07:30 09/14/24 07:48 Insulin Lispro (Admelog) 1 Unit/0.01 Ml Unit SC 10/11/24 07:29 Not Given AC [facility] Protocol Insulin Human Lispro 5 unit 09/12/24 12:00 09/14/24 07:50 Insulin Lispro (Admelog) 1 Unit/0.01 Ml Unit SC 10/12/24 11:59 5 unit TIDWM LEONIDAS Administration Morphine Sulfate 2 mg 09/10/24 18:36 Morphine Sulf Inj 10 Mg/Ml Vial IVP 09/15/24 18:35 Q4HR PRN PAIN SCALE 7-10 (Severe Ondansetron HCl 4 mg 09/10/24 17:59 Ondansetron Inj 2 Mg/Ml Inj 2 Ml IVP 10/10/24 17:58 Q6H PRN NAUSEA OR VOMITING Protocol Pantoprazole Sodium 40 mg 09/12/24 09:00 09/14/24 08:29 Pantoprazole 40 Mg Tablet PO 10/12/24 08:59 40 mg QDAY LEONIDAS Administration Pharmacy Consult 1 each 09/11/24 09:00 Vancomycin Pharmacy To Dose 1 Each Each IV 10/11/24 08:59 QDAY PRN PROTOCOL Sennosides 1 tab 09/11/24 09:00 09/14/24 08:29 Senna Tablet PO 10/11/24 08:59 Not Given QDAY LEONIDAS Protocol Zinc Sulfate 220 mg 09/11/24 09:00 09/14/24 08:29 Zinc Sulfate 220 Mg Capsule PO 10/11/24 08:59 220 mg QDAY LEONIDAS Administration Plan Jose Angel Hoyos is a 54-year-old male with a past medical history of type 2 diabetes mellitus who is admitted for management of necrotizing fasciitis. #Necrotizing fasciitis, s/p guillotine amputation #Osteomyelitis Presents with complaint of lower extremity edema, pain on proportion, with associated fever and chills after recent trauma to lower extremity. XR of foot revealed osteomyelitis of proximal phalanx of third digit, distal 2nd and 3rd metatarsals, and air in the soft tissue near the lateral ankle and metatarsals. CT scan of the foot showed extensive soft tissue infection, osteomyelitis of the proximal phalanx of the 2nd and 3rd digits, and early osteomyelitis of the distal 2nd and 3rd metatarsals. ? General Surgery following, appreciate recommendations ? Infectious disease following, appreciate recommendations ? Vancomycin and Zosyn (09/10-) ? Blood culture 09/10: NGTD ? Wound culture 09/10: Aerococcus species ? Pain management: norco and morphine #Type 2 diabetes mellitus A1c 7.2%, not on any home medications. Presented with blood glucose 400. ? Glargine 15 units daily ? Lispro 5 untis TIDWM ? Hypoglycemic protocol in place ? Strict blood sugar control to optimize wound healing Hospital management: Disposition: POD day 1, IV antibiotics, possible OR on 09/15 Diet: diabetic Lines: PIV DVT prophylaxis: SCD of right lower extremity GI prophylaxis: pantoprazole 40 mg daily Carr: placed CODE STATUS: full code ----- Plan discussed with attending physician Dr. Otis Foster MD PGY-1 Internal Medicine Attending Provider Attestation/Addendum I have examined the patient, reviewed labs and imaging findings, discussed the case with the resident(s), and reviewed entered orders. I agree with the plan of care as outlined in this note. Dr. Otis MD
[2024-09-14] MEDS: cefTRIAXone/D5w 1gm IV premix 1 GM/50 ML BAG IV ×2 (13:15→20:16)
--- NOTE | 2024-09-14 14:32 | ESPR_ITS ---
Subjective Subjective Interval history: treating based on swab of wound. not recommended. Exam Vital Signs Temp Pulse Resp BP Pulse Ox O2 Del Method O2 Flow Rate 97.5 F 81 18 139/80 H 92 L Nasal Cannula 2 09/14/24 08:00 09/14/24 08:00 09/14/24 08:00 09/14/24 08:00 09/14/24 08:00 09/14/24 08:00 09/13/24 22:00 Narrative Exam alert ge[place]ian only man. resident fluent. prior rt rachel mejia noted. with plans appreciated Objective - Internal Medicine Labs 09/14/24 09:15 09/14/24 09:15 Labs: Laboratory Results - last 24 hr 09/14/24 09:15 WBC 11.6 H RBC 4.59 Hgb 13.3 L Hct 38.1 L MCV 83 MCH 29.0 MCHC 34.9 RDW Std Deviation 39.8 Plt Count 199 D Neut % (Auto) 74 Lymph % (Auto) 16 [place] % (Auto) 8 Eos % (Auto) 0 Baso % (Auto) 0 Neut # (Auto) 8.6 H Lymph # (Auto) 1.9 [place] # (Auto) 1.0 H Eos # (Auto) 0.0 Baso # (Auto) 0.0 Immature Gran # (Auto) 0.13 H Absolute Nucleated RBC 0.00 Immature Gran % 1 H Nucleated RBC % 0 Sodium 138 Potassium 3.5 Chloride 101 Carbon Dioxide 27.1 Anion Gap 10 BUN 12 Creatinine 0.7 Estim Creat Clear Calc 114.0 eGFR > 60 BUN/Creatinine Ratio 17 Glucose 153 H D Calculated Osmolality 278 Calcium 8.5 Corrected Calcium 9.3 Phosphorus 2.6 Magnesium 1.8 Total Bilirubin 0.8 ALT 37 Alkaline Phosphatase 162 H D Total Protein 6.4 Albumin 3.0 L Globulin 3.4 Albumin/Globulin Ratio 0.9 L Assessment & Plan A&P Narrative osteo of foot. amputated 09/11/24. rachel farnsworth with plans for a formal bka tomorrow dmII, no a1c on file glucose high other problems as noted. ok for oral keflex 500 qid or as adjusted for any ckd for 5d post op primarily for wound as bc were neg presumably amputation was above the level of infection. if not, please document and check circulation will likely see again prn. control DM. call if hiv or hep c pos locally, even though we may not treat in house. we can get some more labs. pascual lynne for amputation revision, tka with closure tomorrow if that is the plan. 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 Time Spent With Patient Time: Total time spent is greater than 50% in coordination of care (as documented) at patient's floor/unit and/or counseling patient:
--- NOTE | 2024-09-14 16:04 | ESCONSULT_ITS ---
<Statement entered by Kristian Feliciano MD - 09/16/24 09:17> pt seen with resident. all findings confirmed. HPI Data of Consult Requesting Physician: Home Berg MD Admitting Provider: Benoit Douglas MD Attending Provider: Home Berg MD Primary Care Provider: Parminder Causey MD Consult Narrative History of present illness: 63-year-old male with a history of uncontrolled diabetes and hypertension, presenting to the emergency department with complaints of right lower extremity pain, swelling, and discharge. Per patient he does not follow-up regularly with a doctor, was unaware that he had diabetes or high blood pressure. Patient has been having right lower extremity issues for about 2 weeks. ID consulted for osteomyelitis of right lower extremity status post amputation. Patient states to be feeling better now, currently on IV antibiotics pending below-knee amputation with Dr Wade. cc:: cc: Home Berg MD Exam Vital Signs Temp Pulse Resp BP Pulse Ox O2 Del Method O2 Flow Rate 97.2 F 76 14 148/82 H 96 Nasal Cannula 2 09/14/24 12:00 09/14/24 12:00 09/14/24 12:00 09/14/24 12:00 09/14/24 12:00 09/14/24 12:00 09/13/24 22:00 Narrative Exam GENERAL: no acute distress, AAO x3, well nourished. CARDIOVASCULAR: RRR. Normal S1/S2, No m/r/g. RESPIRATORY: CTAB. No wheezing, rhonchi, crackles. GASTROINTESTINAL: Abdomen soft, non tender no palpable masses. Bowel sounds present in all 4 quadrants. MUSCULOSKELETAL:? s/p right lower extremity amputation, dressings placed. Mild swelling right lower extremity. PSYCHIATRIC: Awake and alert, not agitated, normal mood and affect. Results Labs 09/14/24 09:15 09/14/24 09:15 Labs: Short CBC 09/14/24 Range/Units 09:15 WBC 11.6 H (3.8-10.6) Thou/mm3 Hgb 13.3 L (13.5-16.0) g/dL Hct 38.1 L (41.0-53.0) % Plt Count 199 D (140-440) Thou/mm3 BMP 09/14/24 09:15 Sodium 138 Potassium 3.5 Chloride 101 Carbon Dioxide 27.1 BUN 12 Creatinine 0.7 Glucose 153 H D Calcium 8.5 Liver Function 09/14/24 Range/Units 09:15 Total Bilirubin 0.8 (0.3-1.2) mg/dL ALT 37 (10-49) U/L Alkaline Phosphatase 162 H D (46-116) U/L Albumin 3.0 L (3.5-5.0) gm/dL Quality Measures Quality Measures none Medications Home Medications and Allergies Home Medications ?Medication ?Instructions ?Recorded ?Confirmed ?Type No Known Home Medications 09/13/2409/04 History Allergies Allergy/AdvReac Type Severity Reaction Status Date / Time No Known Allergies Allergy Verified 09/10/24 12:31 Visit Medications Acetaminophen (Acetaminophen 325 Mg Tablet) 650 mg PO Q6H PRN PRN Reason: PAIN OR FEVER > 101 Stop: 10/10/24 17:53 Hydrocodone Bitart/Acetaminophen (Hydrocodone/Apap 5/325 Tablet) 1 tab PO Q6HR PRN PRN Reason: PAIN SCALE 4-6 (Moderate Stop: 09/15/24 18:35 Ascorbic Acid (Ascorbic Acid 250 Mg Tablet) 500 mg PO BID [facility] Stop: 10/10/24 20:59 Last Admin: 09/14/24 08:29 Dose: 500 mg Atorvastatin Calcium (Atorvastatin Calcium 20 Mg Tablet) 40 mg PO HS [facility] Stop: 10/11/24 20:59 Last Admin: 09/13/24 20:15 Dose: 40 mg Dextrose (Dextrose 50%-Water Inj 50 Ml Syringe) 25 ml IV Q15MIN PRN PRN Reason: BG 50-70 responsive npo pt Stop: 10/10/24 18:03 Dextrose (Dextrose 50%-Water Inj 50 Ml Syringe) 50 ml IV Q15MIN PRN PRN Reason: BG <50 OR BG <70 & pt unresponsive Stop: 10/10/24 18:03 Docusate Sodium (Docusate Sod 100 Mg Capsule) 100 mg PO BID [facility]; Protocol Stop: 10/10/24 20:59 Last Admin: 09/14/24 08:29 Dose: Not Given Glucagon (Glucagon Inj 1 Mg Vial) 1 mg IM Q15MIN PRN PRN Reason: BG <70, and no IV access Ceftriaxone Sodium/Dextrose (Rocephin/D5w 1gm Iv Premix) 1 gm in 50 mls @ 100 mls/hr IV Q12HR [facility] Stop: 09/21/24 11:57 Last Admin: 09/14/24 13:15 Dose: 100 mls/hr Insulin Glargine (Insulin Glargine (Lantus) 5 Unit/0.05 Ml (Per 5 Units)) 15 unit SC QDAY [facility] Stop: 10/13/24 08:59 Last Admin: 09/14/24 08:29 Dose: 15 unit Insulin Human Lispro (Insulin Lispro (Admelog) 1 Unit/0.01 Ml Unit) 0 unit SC AC [facility]; Protocol Stop: 10/11/24 07:29 Last Admin: 09/14/24 11:40 Dose: Not Given Insulin Human Lispro (Insulin Lispro (Admelog) 1 Unit/0.01 Ml Unit) 5 unit SC TIDWM [facility] Stop: 10/12/24 11:59 Last Admin: 09/14/24 11:52 Dose: 5 unit Morphine Sulfate (Morphine Sulf Inj 10 Mg/Ml Vial) 2 mg IVP Q4HR PRN PRN Reason: PAIN SCALE 7-10 (Severe Stop: 09/15/24 18:35 Ondansetron HCl (Ondansetron Inj 2 Mg/Ml Inj 2 Ml) 4 mg IVP Q6H PRN; Protocol PRN Reason: NAUSEA OR VOMITING Stop: 10/10/24 17:58 Pantoprazole Sodium (Pantoprazole 40 Mg Tablet) 40 mg PO QDAY [facility] Stop: 10/12/24 08:59 Last Admin: 09/14/24 08:29 Dose: 40 mg Sennosides (Senna Tablet) 1 tab PO QDAY [facility]; Protocol Stop: 10/11/24 08:59 Last Admin: 09/14/24 08:29 Dose: Not Given Zinc Sulfate (Zinc Sulfate 220 Mg Capsule) 220 mg PO QDAY [facility] Stop: 10/11/24 08:59 Last Admin: 09/14/24 08:29 Dose: 220 mg Discontinued Medications Acetaminophen (Acetaminophen 325 Mg Tablet) 650 mg PO Q6H PRN PRN Reason: PAIN OR FEVER > 101 Stop: 10/10/24 17:53 Fentanyl Citrate (Fentanyl Cit Inj 50 Mcg/Ml Amp 2ml) 50 mcg IVP Q5MIN PRN PRN Reason: PAIN SCALE 4-10(Mod-Sev Hydralazine HCl (Hydralazine Inj 20 Mg/Ml Vial) 5 mg IV Q20MIN PRN PRN Reason: SEE COMMENTS Piperacillin/Tazobactam/Dextrose (Zosyn) 3.375 gm in 50 mls @ 100 mls/hr IV X1 ONE Stop: 09/10/24 13:13 Last Infusion: 09/10/24 14:01 Dose: Infused Vancomycin/Sodium Chloride (Vancomycin/Ns 1 Gm Ivpb) 200 mls @ 120 mls/hr IV X1 ONE Stop: 09/10/24 14:23 Last Infusion: 09/10/24 15:48 Dose: Infused Sodium Chloride (Ns) 1,000 mls @ 999 mls/hr IV .Q1H1M ONE Stop: 09/10/24 14:35 Last Infusion: 09/10/24 15:09 Dose: Infused Sodium Chloride (Ns) 1,000 mls @ 999 mls/hr IV .Q1H1M ONE Stop: 09/10/24 14:36 Last Infusion: 09/10/24 15:09 Dose: Infused Sodium Chloride (Ns) 1,000 mls @ 999 mls/hr IV .Q1H1M ONE Stop: 09/10/24 15:40 Last Infusion: 09/10/24 16:28 Dose: Infused Lactated Ringer's (Lactated Ringers) 1,000 mls @ 75 mls/hr IV .[id number] [facility] Stop: 10/10/24 17:59 Last Admin: 09/11/24 07:50 Dose: Not Given Piperacillin/Tazobactam/Dextrose (Zosyn) 3.375 gm in 50 mls @ 12.5 mls/hr IV Q8HR [facility] Stop: 09/17/24 21:59 Last Admin: 09/14/24 06:33 Dose: 12.5 mls/hr Vancomycin/Sodium Chloride (Vancomycin/Ns 1 Gm Ivpb) 200 mls @ 120 mls/hr IV Q12H [facility]; Protocol Stop: 09/17/24 21:59 Last Infusion: 09/11/24 23:28 Dose: Infused Lactated Ringer's (Lactated Ringers) 1,000 mls @ 150 mls/hr IV .Q6H40M [facility] Stop: 10/10/24 18:35 Last Admin: 09/13/24 02:06 Dose: 150 mls/hr Promethazine HCl 12.5 mg/ (Sodium Chloride) 50.5 mls @ 2.5 mls/min IV X1 PRN PRN Reason: NAUSEA OR VOMITING Vancomycin/Sodium Chloride (Vancomycin/Ns 1 Gm Ivpb) 200 mls @ 120 mls/hr IV Q8HR [facility]; Protocol Stop: 09/19/24 08:59 Last Admin: 09/13/24 07:16 Dose: 120 mls/hr Vancomycin/Sodium Chloride (Vancomycin/Ns 750 Mg Ivpb) 750 mg in 150 mls @ 120 mls/hr IV Q8HR [facility] Stop: 09/20/24 13:59 Last Admin: 09/14/24 05:20 Dose: 120 mls/hr Albumin Human (Albuminar-25 Ivpb) 12.5 gm in 50 mls @ 50 mls/hr IV X1 ONE Stop: 09/13/24 13:29 Last Admin: 09/13/24 13:00 Dose: 50 mls/hr Insulin Glargine (Insulin Glargine (Lantus) 5 Unit/0.05 Ml (Per 5 Units)) 5 unit SC QDAY [facility] Stop: 10/11/24 08:59 Last Admin: 09/11/24 08:50 Dose: 5 unit Insulin Glargine (Insulin Glargine (Lantus) 5 Unit/0.05 Ml (Per 5 Units)) 10 unit SC QDAY [facility] Stop: 10/12/24 08:59 Last Admin: 09/12/24 08:08 Dose: 10 unit Insulin Glargine (Insulin Glargine (Lantus) 5 Unit/0.05 Ml (Per 5 Units)) 5 unit SC X1 ONE Stop: 09/12/24 08:23 Last Admin: 09/12/24 10:06 Dose: 5 unit Insulin Human Lispro (Insulin Lispro (Admelog) 1 Unit/0.01 Ml Unit) 5 unit SC X1 ONE Stop: 09/11/24 11:16 Last Admin: 09/11/24 11:19 Dose: 5 unit Insulin Human Lispro (Insulin Lispro (Admelog) 1 Unit/0.01 Ml Unit) 2 unit SC TIDWM [facility] Stop: 10/11/24 17:29 Last Admin: 09/12/24 08:07 Dose: 2 unit Insulin Human Regular (Insulin Hum Regular 1 Unit/0.01 Ml (Per Unit)) 10 unit SC X1 ONE Stop: 09/10/24 18:02 Last Admin: 09/10/24 18:36 Dose: Not Given Insulin Human Regular (Insulin Hum Regular 1 Unit/0.01 Ml (Per Unit)) 5 unit SC X1 ONE Stop: 09/10/24 18:35 Last Admin: 09/10/24 18:40 Dose: 5 unit Metoprolol Tartrate (Metoprolol Tartrate Inj 1 Mg/Ml Amp 5 Ml) 1 mg IVP Q5MIN PRN PRN Reason: TACHYCARDIA Stop: 10/10/24 19:56 Pantoprazole Sodium (Pantoprazole Inj 40 Mg Vial) 40 mg IVP QDAY [facility] Stop: 10/11/24 08:59 Last Admin: 09/11/24 08:49 Dose: 40 mg Pharmacy Consult (Vancomycin Pharmacy To Dose 1 Each Each) 1 each IV QDAY PRN PRN Reason: PROTOCOL Stop: 10/11/24 08:59 Potassium Chloride (Potassium Chloride 20 Meq Tabcr) 40 meq PO X1 ONE Stop: 09/11/24 11:27 Last Admin: 09/11/24 11:35 Dose: 40 meq Potassium Chloride (Potassium Chloride 20 Meq Tabcr) 40 meq PO X1 ONE Stop: 09/13/24 08:36 Last Admin: 09/13/24 08:46 Dose: 40 meq Potassium Phos/Sodium Phos (Naph,[facility] 1 Packet (1.5 Gm)) 1 packet PO X1 ONE Stop: 09/11/24 15:37 Last Admin: 09/11/24 17:14 Dose: 1 packet Potassium Phos/Sodium Phos (Naph,[facility] 1 Packet (1.5 Gm)) 1 packet PO X1 ONE Stop: 09/12/24 08:17 Last Admin: 09/12/24 10:06 Dose: 1 packet Assessment & Plan Plan 63-year-old male with a history of uncontrolled diabetes and hypertension, presenting to the emergency department with complaints of right lower extremity pain, swelling, and discharge. Per patient he does not follow-up regularly with a doctor, was unaware that he had diabetes or high blood pressure. Patient has been having right lower extremity issues for about 2 weeks. ID consulted for osteomyelitis of right lower extremity status post amputation. #Osteomyelitis s/p amputation Patient presented with osteomyelitis of the right lower extremity, surgery has already performed amputation Patient currently on IV antibiotics Plan for below-knee amputation tomorrow May do oral keflex 500 qid or as adjusted for any ckd for 5d post op primarily for wound as blood cultures have been negative. A1c noted 7.2 on admission, possible PAD also causing poor healing which led to osteomyelitis. Will follow-up on Thursday # Newly diagnosed type 2 diabetes mellitus #? Hypertension Continue management per primary team Case discussed with attending Dr Jodie Jones MD PGY3
--- NOTE | 2024-09-14 20:06 | ESCONSULT_ITS ---
RE: JESUS MANUEL ROSA : 1970 DATE OF CONSULTATION: 09/14/2024 REFERRING PHYSICIAN: Dr. Douglas. REASON FOR CONSULTATION: Hyperlipidemia and diabetes with peripheral vascular disease in a patient with recent amputation of the right leg below the knee. HISTORY OF PRESENT ILLNESS: The patient is a 54-year-old man with diabetes. He lives near [place]. 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 His medical problems include recent [id number] amputation in the right on 09/11/[address] Wade. Right TKA is planned at some point later, possibly tomorrow. No problems include diabetes and other health problems. ALLERGIES: NONE KNOWN. IMMUNIZATIONS: Last tetanus is not known. He does not take flu shot every year. He has had 3 COVID vaccines. He does not recall pneumococcal vaccination that will be routine in diabetics. FAMILY HISTORY: Positive for diabetes in various relatives. SOCIAL HISTORY: He lives with his family. 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 PHYSICAL EXAMINATION: The patient is alert and cooperative. He speaks primarily [place]. [place]-speaking resident was used for communication. No other problems were noted. The patient is in good spirits and appears to have adequate sensation distally. There is no evidence of proximal spread of the infection. As a result, the swab culture is probably not something we should follow. Dr. Wade has preferred the patient to be left on Rocephin, which is fine, but Keflex will also work as we are primarily trying to treat the wound and prevent root-based rapid infection in the wound. Revision is planned. There is no MRSA noted and the patient has carried his MRSA. He can give vancomycin preoperatively, but if not, then I would stop oral antibiotics within a couple of days after the knee replacement is performed. We will check on him again as needed. I will check his HIV test and hepatitis C test because of his age. We will not follow him unless there is a test that turns out positive. DT: 16:23:03 TT: 20:05:00 Ref: [id number] - TID: [id number]
[2024-09-14] MEDS: DOCUSATE SOD 100 MG CAPSULE PO (20:15)
[2024-09-14] MEDS: ATORVASTATIN CALCIUM 20 MG TABLET 40 MG PO (20:16)
[2024-09-15] VITALS (16 sets, daily range): BP systolic 120–163; BP diastolic 59–95; PULSE 72–93; RESP 14–21; TEMP 36.2–37.1; O2SAT 94–97
[2024-09-15 06:13] LABS: Basophils % (Auto) 0 % (0-2.5); Eosinophils # (Auto) 0.1 Thou/mm3 (0.0-0.5); Eosinophils % (Auto) 1 % (0-10); Hematocrit 38.5 % (41.0-53.0); Immature Granulocytes % (Auto) 2 % (0-0); Immature Granulocytes Auto 0.18 Thou/mm3 (0.00-0.00); Lymphocytes # (Auto) 2.2 Thou/mm3 (1.0-4.8); Lymphocytes % (Auto) 19 % (10-50); Mean Corpuscular HGB Conc 33.8 g/dl (31.0-37.0); Mean Corpuscular Hemoglobin 29.1 pg (25.0-35.0); Mean Corpuscular Volume 86 fL (80-100); Monocytes # (Auto) 1.2 Thou/mm3 (0.0-0.8); Monocytes % (Auto) 10 % (0-12); Neutrophils # (Auto) 7.5 Thou/mm3 (1.8-7.7); Neutrophils % (Auto) 68 % (37-80); Nucleated Red Blood Cell % 0 /100 WBC (0); Platelet Count 223 Thou/mm3 (140-440); RDW Standard Deviation 40.9 fL (35.1-43.9); Red Blood Count 4.46 Miln/mm3 (4.50-5.90); White Blood Count 11.2 Thou/mm3 (3.8-10.6)
[2024-09-15 06:38] LABS: Chloride 101 mMol/L (98-107); Potassium 3.6 mMol/L (3.4-5.1); Sodium 139 mMol/L (136-145)
[2024-09-15 06:39] LABS: Alanine Aminotransferase 29 U/L (10-49); Albumin/Globulin Ratio 0.8 (1.2-2.2); Alkaline Phosphatase 167 U/L (46-116); Anion Gap 10 (7-16); BUN/Creatinine Ratio 18 Ratio (12-20); Bilirubin,Total 0.7 mg/dL (0.3-1.2); Blood Urea Nitrogen 11 mg/dL (9-23); Calcium 8.6 mg/dL (8.3-10.6); Calcium (Corrected) 9.4 mg/dL (8.5-10.1); Creatinine (Component) 0.6 mg/dL (0.6-1.3); Estimated Creatinine Clearance 131.3 mL/min (>60); Globulin 3.6 gm/dL (2.3-3.5); Glucose 124 mg/dL (74-106); Magnesium 1.9 mg/dL (1.6-2.6); Osmolality,Calculated 277 (275-295); Phosphorous 2.2 mg/dL (2.4-5.1); Total Protein 6.6 gm/dL (5.7-8.2); eGFR > 60 See Note
[2024-09-15 06:42] LABS: Glucose Estimated Average 163 mg/dL (80-131); Hemoglobin A1C 7.3 % Hgb (4.8-6.0)
[2024-09-15 07:44] LABS: Hepatitis C Antibody Non Reactive (Non React)
[2024-09-15] MEDS: cefTRIAXone/D5w 1gm IV premix 1 GM/50 ML BAG IV (08:29)
[2024-09-15 09:55] LABS: HIV (1&2) Antibody Rapid Non-Reactive
--- NOTE | 2024-09-15 10:46 | PD.RESPRO ---
Documentation for date of: 09/15/24 Subjective Subjective Interval history: No acute overnight events. Seen and examined at bedside and patient denies any fevers, chills, sweats, rigors. Vital signs stable, no fevers reported. Pain well-managed on current regimen. Labs largely stable and unremarkable, phosphorus was repleted. Underwent right BKA today with no noted complications. Will continue to monitor blood sugars, continue with IV antibiotics. Exam Vital Signs Temp Pulse Resp BP Pulse Ox O2 Del Method O2 Flow Rate 97.3 F 80 14 145/81 H 96 Room Air 0.5 09/15/24 08:00 09/15/24 08:00 09/15/24 08:00 09/15/24 08:00 09/15/24 08:00 09/15/24 08:00 09/14/24 17:02 Narrative Exam Exam prior to procedure: GENERAL: no acute distress, AAO x3, well nourished. HEENT: Head AT/ NC. Mucous membranes moist. PERRL. NECK: Supple, no lymphadenopathy, no carotid bruits. CARDIOVASCULAR: RRR. Normal S1/S2, No m/r/g. RESPIRATORY: CTAB. No wheezing, rhonchi, crackles. GASTROINTESTINAL: Abdomen soft, non tender no palpable masses. Bowel sounds present in all 4 quadrants. MUSCULOSKELETAL:? s/p right lower extremity amputation, dressings placed NEUROLOGICAL: CN II-XII grossly intact. No focal deficits. Sensation intact, symmetric. PSYCHIATRIC: Awake and alert, not agitated, normal mood and affect. INTEGUMENTARY: No obvious rashes, no jaundice, normal turgor. Objective Labs 09/16/24 04:37 09/16/24 04:37 Labs: Laboratory Results - last 24 hr 09/14/24 09/15/24 09:15 04:35 WBC 11.6 H 11.2 H RBC 4.59 4.46 L Hgb 13.3 L 13.0 L Hct 38.1 L 38.5 L MCV 83 86 MCH 29.0 29.1 MCHC 34.9 33.8 RDW Std Deviation 39.8 40.9 Plt Count 199 D 223 Neut % (Auto) 74 68 Lymph % (Auto) 16 19 Meade % (Auto) 8 10 Eos % (Auto) 0 1 Baso % (Auto) 0 0 Neut # (Auto) 8.6 H 7.5 Lymph # (Auto) 1.9 2.2 Meade # (Auto) 1.0 H 1.2 H Eos # (Auto) 0.0 0.1 Baso # (Auto) 0.0 0.0 Immature Gran # (Auto) 0.13 H 0.18 H Absolute Nucleated RBC 0.00 0.00 Immature Gran % 1 H 2 H Nucleated RBC % 0 0 Sodium 139 Potassium 3.6 Chloride 101 Carbon Dioxide 28.0 Anion Gap 10 BUN 11 Creatinine 0.6 Estim Creat Clear Calc 131.3 eGFR > 60 BUN/Creatinine Ratio [address] Glu mg/dL 163 H Hemoglobin A1c 7.3 H Calculated Osmolality 277 Calcium 8.6 Corrected Calcium 9.4 Phosphorus 2.2 L Magnesium 1.9 Total Bilirubin 0.7 ALT 29 Alkaline Phosphatase 167 H Total Protein 6.6 Albumin 3.0 L Globulin 3.6 H Albumin/Globulin Ratio 0.8 L Hepatitis C Antibody Non Reactive HIV 1&2 Antibody Rapid Non-Reactive Quality Measures Quality Measures none Assessment & Plan Assessment Current Active Medications: Generic Name Dose Route Start Last Admin Trade Name Freq PRN Reason Stop Dose Admin Acetaminophen 650 mg 09/10/24 18:44 Acetaminophen 325 Mg Tablet PO 10/10/24 17:53 Q6H PRN PAIN OR FEVER > 101 Hydrocodone Bitart/Acetaminophen 1 tab 09/10/24 18:36 Hydrocodone/Apap 5/325 Tablet PO 09/15/24 18:35 Q6HR PRN PAIN SCALE 4-6 (Moderate Ascorbic Acid 500 mg 09/10/24 21:00 09/15/24 08:28 Ascorbic Acid 250 Mg Tablet PO 10/10/24 20:59 Not Given BID [facility] Atorvastatin Calcium 40 mg 09/11/24 21:00 09/14/24 20:16 Atorvastatin Calcium 20 Mg Tablet PO 10/11/24 20:59 40 mg HS [facility] Administration Dextrose 25 ml 09/10/24 18:04 Dextrose 50%-Water Inj 50 Ml Syringe IV 10/10/24 18:03 Q15MIN PRN BG 50-70 responsive npo pt Dextrose 50 ml 09/10/24 18:04 Dextrose 50%-Water Inj 50 Ml Syringe IV 10/10/24 18:03 Q15MIN PRN BG <50 OR BG <70 & pt unresponsive Docusate Sodium 100 mg 09/10/24 21:00 09/15/24 08:28 Docusate Sod 100 Mg Capsule PO 10/10/24 20:59 Not Given BID [facility] Protocol Glucagon 1 mg 09/10/24 18:04 Glucagon Inj 1 Mg Vial IM Q15MIN PRN BG <70, and no IV access Ceftriaxone Sodium/Dextrose 1 gm in 50 mls @ 100 mls/hr 09/14/24 11:58 09/15/24 08:29 Rocephin/D5w 1gm Iv Premix IV 09/21/24 11:57 100 mls/hr Q12HR [facility] Administration Insulin Glargine 15 unit 09/13/24 09:00 09/15/24 08:28 Insulin Glargine (Lantus) 5 Unit/0.05 Ml (Per 5 Units) SC 10/13/24 08:59 Not Given QDAY [facility] Insulin Human Lispro 0 unit 09/11/24 07:30 09/15/24 08:28 Insulin Lispro (Admelog) 1 Unit/0.01 Ml Unit SC 10/11/24 07:29 Not Given AC [facility] Protocol Insulin Human Lispro 5 unit 09/12/24 12:00 09/15/24 08:28 Insulin Lispro (Admelog) 1 Unit/0.01 Ml Unit SC 10/12/24 11:59 Not Given TIDWM [facility] Morphine Sulfate 2 mg 09/10/24 18:36 Morphine Sulf Inj 10 Mg/Ml Vial IVP 09/15/24 18:35 Q4HR PRN PAIN SCALE 7-10 (Severe Ondansetron HCl 4 mg 09/10/24 17:59 Ondansetron Inj 2 Mg/Ml Inj 2 Ml IVP 10/10/24 17:58 Q6H PRN NAUSEA OR VOMITING Protocol Pantoprazole Sodium 40 mg 09/12/24 09:00 09/15/24 08:29 Pantoprazole 40 Mg Tablet PO 10/12/24 08:59 Not Given QDAY [facility] Sennosides 1 tab 09/11/24 09:00 09/14/24 08:29 Senna Tablet PO 10/11/24 08:59 Not Given QDAY [facility] Protocol Zinc Sulfate 220 mg 09/11/24 09:00 09/14/24 08:29 Zinc Sulfate 220 Mg Capsule PO 10/11/24 08:59 220 mg QDAY [facility] Administration Plan Jose Angel Hoyos is a 54-year-old male with a past medical history of type 2 diabetes mellitus who is admitted for management of necrotizing fasciitis. #Necrotizing fasciitis, s/p guillotine amputation and now right BKA #Osteomyelitis Presents with complaint of lower extremity edema, pain on proportion, with associated fever and chills after recent trauma to lower extremity. XR of foot revealed osteomyelitis of proximal phalanx of third digit, distal 2nd and 3rd metatarsals, and air in the soft tissue near the lateral ankle and metatarsals. CT scan of the foot showed extensive soft tissue infection, osteomyelitis of the proximal phalanx of the 2nd and 3rd digits, and early osteomyelitis of the distal 2nd and 3rd metatarsals. Vancomycin and Zosyn (09/10-09/14) ? General Surgery following, appreciate recommendations ? Infectious disease following, appreciate recommendations ? Ceftriaxone (09/14-) ? Blood culture 09/10: NGTD ? Wound culture 09/10: Aerococcus species ? Pain management: norco and morphine #Type 2 diabetes mellitus A1c 7.2%, not on any home medications. Presented with blood glucose 400. ? Glargine 15 units daily ? Lispro 5 untis TIDWM ? Hypoglycemic protocol in place ? Strict blood sugar control to optimize wound healing #Hypophosphatemia ? Continue to monitor and replete as needed Hospital management: Disposition: S/p right BKA, will continue to monitor for another 24 to 48 hours Diet: diabetic Lines: PIV DVT prophylaxis: SCD of right lower extremity GI prophylaxis: pantoprazole 40 mg daily CODE STATUS: full code ----- Plan discussed with attending physician Dr. Otis Foster MD PGY-1 Internal Medicine Attending Provider Attestation/Addendum I have examined the patient, reviewed labs and imaging findings, discussed the case with the resident(s), and reviewed entered orders. I agree with the plan of care as outlined in this note, with these additional summaries/recommendations: Patient seen at bedside. No acute overnight events and he has no acute complaints today but is anxious for surgery. Patient will go for right BKA today with general surgery. Continue antibiotics. Pain management as needed. Mild hypophosphatemia present and replacement given. Repeat level in AM. Continue basal and bolus insulin for diabetes mellitus type 2 with A1c 7.2%. Target blood sugar of 140-180 while hospitalized. Please see residents note for additional details and management. Dr. Otis MD
--- NOTE | 2024-09-15 13:07 | PC.SS ---
SS follow up note: OR today on left foot. Dr. Wade following. Patient will discharge home with HH when medically cleared.
--- NOTE | 2024-09-15 13:33 | PD.SUROPNT ---
Date of Procedure 09/15/24 Pre Op Diagnosis Open wound right leg status post guillotine amputation Post Op Diagnosis Open wound right leg status post guillotine amputation Procedure Right below the knee amputation Findings No evidence of infection or bleeding at the guillotine stump. Arteries were patent Procedure Description The patient was brought into the operating room in supine position after administration of general endotracheal anesthesia the right lower extremity open wound was covered with an Ioban and the right lower extremity was prepped and draped in standard surgical manner. The anterior incision was made approximately 15 cm distal to the tibial tuberosity and the posterior incision was approximately 12 cm distal to the anterior incision. Dissection was carried through the subcutaneous tissue. The compartments of the leg entered. The fascias muscles were divided with electrocautery. Neurovascular bundles were ligated with #0 Vicryl tie. The patient was noted to have patent arteries with minimal calcification. All the muscle compartments were excised. The tibia was divided approximately 5 cm proximal to the anterior incision and the fibula was divided approximately 7 cm proximal to the anterior incision. Wound was copiously and thoroughly washed and irrigated with betadine mixed with peroxide and saline. It was further washed with warm saline. The posterior skin and gastrocnemius muscle were raised anteriorly as a musculocutaneous flap. Posterior fascia was approximated to the anterior fascia with interrupted suture using #0 Vicryl. Hemostasis was adequate and satisfactory. Once the anterior fascia was reapproximated to the posterior fascia, the subcutaneous tissue was closed with interrupted suture using #0 Vicryl and the skin was closed with annabelle. Dry dressing as well as Kerlix was placed over the stump. The patient tolerated the procedure well.he was extubated, breathing spontaneously and without difficulty, and was transferred to postanesthesia care in stable condition. Instrument, needle, and sponge counts were all reported to be correct x2. Anesthesia GETA Pathology / specimen Other (Distal right leg) Estimated Blood Loss 10 Condition Stable Disposition PACU Surgeon Marietta Wade MD Surgical Staff Operation Date: 09/15/24 17:15 Case Staff [employer]SEM[employer] MACHINE ADJUSTER: Kristian Hughes RNregional dedicated truck driver: Shena Cruz
--- NOTE | 2024-09-15 13:36 | SUR.PHASEI ---
1336: pt received from OR via bed. received report from CHELSEA Goncalves, Saul CANTOR and Erin spivey ECOLOGICAL MODELER. oral airway in place.no s/s of pain or discomfort. no s/s of resp. distress or discomfort. dressing to below right knee clean, dry and intact. no bleeding noted.
--- NOTE | 2024-09-15 13:38 | SUR.PHASEI ---
1338: pt able to open mouth, removed oral airway at this time.
[2024-09-15] MEDS: fentaNYL CIT INJ 50 mCg/ML AMP 2ML IVP ×2 (13:58→14:10)
[2024-09-15] MEDS: ACETAMINOPHEN IVPB 1,000 MG/100 ML VIAL 250 MG IV (14:12)
--- NOTE | 2024-09-15 14:19 | SUR.PHASEI ---
1419: report given to CHELSEA Lagunas at this time.
--- NOTE | 2024-09-15 14:38 | SUR.PHASEI ---
1438: pt transfer back to room 380 via bed. pt alert and oriented to name, place and time. dressing to right below the knee clean, dry and intact. no bleeding noted. c/o pain but tolerable, pain medication given helpful.
[2024-09-15] MEDS: ATORVASTATIN CALCIUM 20 MG TABLET 40 MG PO (20:26)
[2024-09-15] MEDS: DOCUSATE SOD 100 MG CAPSULE PO (20:27)
[2024-09-15] MEDS: ASCORBIC ACID 250 MG TABLET 500 MG PO (20:27)
[2024-09-16] VITALS (8 sets, daily range): BP systolic 131–140; BP diastolic 59–78; PULSE 68–88; RESP 16–99; TEMP 36.2–37; O2SAT 91–96
--- NOTE | 2024-09-16 04:16 | PC.NURSE ---
Pt came back to room after the BKA on 09/15/24 with a transfer order to be medsurg, Dr. Rogers wa made aware and he is okay with pt's order to be medsurg and not medtele.
[2024-09-16 05:57] LABS: Basophils % (Auto) 0 % (0-2.5); Eosinophils % (Auto) 0 % (0-10); Hematocrit 37.1 % (41.0-53.0); Hemoglobin 12.7 g/dL (13.5-16.0); Immature Granulocytes % (Auto) 1 % (0-0); Immature Granulocytes Auto 0.15 Thou/mm3 (0.00-0.00); Lymphocytes # (Auto) 1.4 Thou/mm3 (1.0-4.8); Lymphocytes % (Auto) 10 % (10-50); Mean Corpuscular HGB Conc 34.2 g/dl (31.0-37.0); Mean Corpuscular Hemoglobin 29.4 pg (25.0-35.0); Mean Corpuscular Volume 86 fL (80-100); Monocytes # (Auto) 0.9 Thou/mm3 (0.0-0.8); Monocytes % (Auto) 6 % (0-12); Neutrophils # (Auto) 11.7 Thou/mm3 (1.8-7.7); Neutrophils % (Auto) 83 % (37-80); Nucleated Red Blood Cell % 0 /100 WBC (0); Platelet Count 264 Thou/mm3 (140-440); RDW Standard Deviation 40.3 fL (35.1-43.9); Red Blood Count 4.32 Miln/mm3 (4.50-5.90); White Blood Count 14.2 Thou/mm3 (3.8-10.6)
[2024-09-16 06:15] LABS: Alanine Aminotransferase 26 U/L (10-49); Albumin, Serum 3.1 gm/dL (3.5-5.0); Albumin/Globulin Ratio 0.8 (1.2-2.2); Alkaline Phosphatase 186 U/L (46-116); Anion Gap 11 (7-16); Aspartate Amino Transferase 34 U/L (0-34); BUN/Creatinine Ratio 25 Ratio (12-20); Bilirubin,Total 0.6 mg/dL (0.3-1.2); Blood Urea Nitrogen 15 mg/dL (9-23); Calcium 8.4 mg/dL (8.3-10.6); Calcium (Corrected) 9.1 mg/dL (8.5-10.1); Carbon Dioxide 24.4 mMol/L (20.0-31.0); Chloride 104 mMol/L (98-107); Creatinine (Component) 0.6 mg/dL (0.6-1.3); Estimated Creatinine Clearance 131.6 mL/min (>60); Globulin 3.8 gm/dL (2.3-3.5); Glucose 206 mg/dL (74-106); Magnesium 2.2 mg/dL (1.6-2.6); Osmolality,Calculated 284 (275-295); Phosphorous 1.9 mg/dL (2.4-5.1); Potassium 3.9 mMol/L (3.4-5.1); Sodium 139 mMol/L (136-145); Total Protein 6.9 gm/dL (5.7-8.2); eGFR > 60 See Note
[2024-09-16] MEDS: INSULIN LISPRO (AdmeLOG) 1 UNIT/0.01 ML UNIT 5 UNIT SC ×3 (07:23→17:42)
[2024-09-16] MEDS: INSULIN LISPRO (AdmeLOG) 1 UNIT/0.01 ML UNIT SC ×2 (07:23→11:54)
--- NOTE | 2024-09-16 08:15 | PD.SURPROG ---
Documentation for date of: 09/16/24 Subjective Subjective Narrative: Patient is seen and examined. He is resting comfortably, pain is controlled Exam Vital Signs Temp Pulse Resp BP Pulse Ox O2 Del Method O2 Flow Rate 97.6 F 81 16 139/66 H 94 L Room Air 2 09/16/24 04:00 09/16/24 04:00 09/16/24 04:00 09/16/24 04:00 09/16/24 04:00 09/16/24 04:00 09/15/24 20:20 Constitutional Constitutional: no acute distress Routine Extremities Exam Comments: Right BKA stump with dressings clean, dry and intact Assessment & Plan Assessment Additional comments: Postop day #1 status post right BKA Plan Continue IV antibiotics. Will keep dressings intact, will remove dressings on postop day #3. Contact [employer] to provide physical integration practitioner and stump protector Procedures Procedures Right below the knee amputation
[2024-09-16] MEDS: SENNA TABLET 1 TAB PO (09:15)
[2024-09-16] MEDS: DOCUSATE SOD 100 MG CAPSULE PO ×2 (09:15→20:10)
[2024-09-16] MEDS: PANTOPRAZOLE 40 MG TABLET PO (09:15)
[2024-09-16] MEDS: ASCORBIC ACID 250 MG TABLET 500 MG PO ×2 (09:15→20:10)
[2024-09-16] MEDS: ZINC SULFATE 220 MG CAPSULE PO (09:15)
[2024-09-16] MEDS: NAPH,KPH MBDB 1 PACKET (1.5 GM) 2 PACKET PO (09:16)
[2024-09-16] MEDS: cefTRIAXone/D5w 1gm IV premix 1 GM/50 ML BAG IV (09:16)
[2024-09-16] MEDS: INSULIN GLARGINE (Lantus) 5 UNIT/0.05 ML (PER 5 UNITS) 15 UNIT SC (09:16)
--- NOTE | 2024-09-16 09:37 | ESPR_ITS ---
Subjective Subjective Interval history: bka finalized by dr murillo yesterday. Exam Vital Signs Temp Pulse Resp BP Pulse Ox O2 Del Method O2 Flow Rate 97.6 F 76 18 139/66 H 95 Room Air 2 09/16/24 04:00 09/16/24 09:07 09/16/24 09:07 09/16/24 04:00 09/16/24 09:07 09/16/24 04:00 09/16/24 09:07 Narrative Exam limited visit. wbc may be up from surgery the other day Objective - Internal Medicine Labs 09/16/24 04:37 09/16/24 04:37 Labs: Laboratory Results - last 24 hr 09/15/24 09/16/24 04:35 04:37 WBC 14.2 H RBC 4.32 L Hgb 12.7 L Hct 37.1 L MCV 86 MCH 29.4 MCHC 34.2 RDW Std Deviation 40.3 Plt Count 264 D Neut % (Auto) 83 H Lymph % (Auto) 10 [place] % (Auto) 6 Eos % (Auto) 0 Baso % (Auto) 0 Neut # (Auto) 11.7 H Lymph # (Auto) 1.4 [place] # (Auto) 0.9 H Eos # (Auto) 0.0 Baso # (Auto) 0.0 Immature Gran # (Auto) 0.15 H Absolute Nucleated RBC 0.00 Immature Gran % 1 H Nucleated RBC % 0 Sodium 139 Potassium 3.9 Chloride 104 Carbon Dioxide 24.4 Anion Gap 11 BUN 15 Creatinine 0.6 Estim Creat Clear Calc 131.6 eGFR > 60 BUN/Creatinine Ratio 25 H Glucose 206 H D Calculated Osmolality 284 Calcium 8.4 Corrected Calcium 9.1 Phosphorus 1.9 L Magnesium 2.2 Total Bilirubin 0.6 AST 34 ALT 26 Alkaline Phosphatase 186 H Total Protein 6.9 Albumin 3.1 L Globulin 3.8 H Albumin/Globulin Ratio 0.8 L HIV 1&2 Antibody Rapid Non-Reactive Assessment & Plan A&P Narrative osteo of foot. amputated 09/11/24. guillotine type with bka completed 09/14 by Sheri dmII, a1c 7.3 other problems as noted. ok for oral keflex 500 qid or as adjusted for any ckd for 5d post op primarily for wound as bc were neg presumably amputation was above the level of infection. if not, please document and check circulation will likely see again prn. control DM. call if hiv or hep c pos locally, even though we may not treat in house. we can get some more labs. pascual lynne for amputation revision, tka with closure tomorrow if that is the plan. treating half-way iv problematic. Time Spent With Patient Time: Total time spent is greater than 50% in coordination of care (as documented) at patient's floor/unit and/or counseling patient:
--- NOTE | 2024-09-16 11:43 | PC.SS ---
SS follow up note; OG with Sheri, Patient was informed by PT camila that patient will need wheelchair and HH services upon discharge.
--- NOTE | 2024-09-16 11:51 | ESPR_ITS ---
<Statement entered by Sapphire Whitehead MD - 09/16/24 14:57> Was seen and examined at bedside. No acute overnight events Per patient pain is manageable, postop day 3 s/p BKA Antibiotics changed to Keflex 500 mg 4 times daily for 5 more days Plan for today Pain management as needed Transition from IV to p.o. antibiotics Tight control of blood sugar Diabetic education Physical therapy inpatient Upon discharge patient will be going to home with home health to continue physical therapy I discussed with and supervised the corporate legal intern physician who took care of this patient. I personally saw and examined the patient and discussed the assessment and plan with the entire medicine team, including my attending , I agree with the assessment and plan as documented below Sapphire Whitehead M.D. PGY-2 Disclaimer: Despite multiple revisions, due to the dictation software being used, the document bellow may not be free of grammatical errors including phonetic/typographic errors. However, this does not deter from our commitment to providing health care in the patient's best interest in mind. Documentation for date of: 09/16/24 Subjective Subjective Interval history: No acute overnight events. Seen and examined at bedside and patient denies shortness of breath, chest pain, fever, chills, sweats. States that pain is manageable with current regimen and not requiring IV pain medication. Surgery to remove dressings on POD #3, and will change antibiotics to oral keflex 500 mg QID for 5 days. Exam Vital Signs Temp Pulse Resp BP Pulse Ox O2 Del Method O2 Flow Rate 97.7 F 76 18 134/78 H 95 Nasal Cannula 2 09/16/24 08:00 09/16/24 09:07 09/16/24 09:07 09/16/24 08:00 09/16/24 09:07 09/16/24 08:00 09/16/24 09:07 Narrative Exam GENERAL: no acute distress, AAO x3, well nourished. HEENT: Head AT/ NC. Mucous membranes moist. PERRL. NECK: Supple, no lymphadenopathy, no carotid bruits. CARDIOVASCULAR: RRR. Normal S1/S2, No m/r/g. RESPIRATORY: CTAB. No wheezing, rhonchi, crackles. GASTROINTESTINAL: Abdomen soft, non tender no palpable masses. Bowel sounds present in all 4 quadrants. MUSCULOSKELETAL:? s/p right lower extremity BKA, dressings placed NEUROLOGICAL: CN II-XII grossly intact. No focal deficits. Sensation intact, symmetric. PSYCHIATRIC: Awake and alert, not agitated, normal mood and affect. INTEGUMENTARY: No obvious rashes, no jaundice, normal turgor. Objective Labs 09/17/24 05:25 09/17/24 05:25 Labs: Laboratory Results - last 24 hr 09/16/24 04:37 WBC 14.2 H RBC 4.32 L Hgb 12.7 L Hct 37.1 L MCV 86 MCH 29.4 MCHC 34.2 RDW Std Deviation 40.3 Plt Count 264 D Neut % (Auto) 83 H Lymph % (Auto) 10 [place] % (Auto) 6 Eos % (Auto) 0 Baso % (Auto) 0 Neut # (Auto) 11.7 H Lymph # (Auto) 1.4 [place] # (Auto) 0.9 H Eos # (Auto) 0.0 Baso # (Auto) 0.0 Immature Gran # (Auto) 0.15 H Absolute Nucleated RBC 0.00 Immature Gran % 1 H Nucleated RBC % 0 Sodium 139 Potassium 3.9 Chloride 104 Carbon Dioxide 24.4 Anion Gap 11 BUN 15 Creatinine 0.6 Estim Creat Clear Calc 131.6 eGFR > 60 BUN/Creatinine Ratio 25 H Glucose 206 H D Calculated Osmolality 284 Calcium 8.4 Corrected Calcium 9.1 Phosphorus 1.9 L Magnesium 2.2 Total Bilirubin 0.6 AST 34 ALT 26 Alkaline Phosphatase 186 H Total Protein 6.9 Albumin 3.1 L Globulin 3.8 H Albumin/Globulin Ratio 0.8 L Quality Measures Quality Measures none Assessment & Plan Assessment Current Active Medications: Generic Name Dose Route Start Last Admin Trade Name Freq PRN Reason Stop Dose Admin Ascorbic Acid 500 mg 09/10/24 21:00 09/16/24 09:15 Ascorbic Acid 250 Mg Tablet PO 10/10/24 20:59 500 mg BID LEONIDAS Administration Atorvastatin Calcium 40 mg 09/11/24 21:00 09/15/24 20:26 Atorvastatin Calcium 20 Mg Tablet PO 10/11/24 20:59 40 mg HS LEONIDAS Administration Dextrose 25 ml 09/10/24 18:04 Dextrose 50%-Water Inj 50 Ml Syringe IV 10/10/24 18:03 Q15MIN PRN BG 50-70 responsive npo pt Dextrose 50 ml 09/10/24 18:04 Dextrose 50%-Water Inj 50 Ml Syringe IV 10/10/24 18:03 Q15MIN PRN BG <50 OR BG <70 & pt unresponsive Docusate Sodium 100 mg 09/10/24 21:00 09/16/24 09:15 Docusate Sod 100 Mg Capsule PO 10/10/24 20:59 100 mg BID LEONIDAS Administration Protocol Glucagon 1 mg 09/10/24 18:04 Glucagon Inj 1 Mg Vial IM Q15MIN PRN BG <70, and no IV access Ceftriaxone Sodium/Dextrose 1 gm in 50 mls @ 100 mls/hr 09/16/24 09:00 09/16/24 09:16 Rocephin/D5w 1gm Iv Premix IV 09/23/24 08:59 100 mls/hr DAILY LEONIDAS Administration Acetaminophen 1,000 mg in 100 mls @ 250 mls/hr 09/15/24 12:39 09/15/24 14:36 Ofirmev Inj IV 09/16/24 12:38 Infused Q6H PRN Infusion PAIN 1-6 (mild-mod Insulin Glargine 15 unit 09/13/24 09:00 09/16/24 09:16 Insulin Glargine (Lantus) 5 Unit/0.05 Ml (Per 5 Units) SC 10/13/24 08:59 15 unit QDAY LEONIDAS Administration Insulin Human Lispro 0 unit 09/11/24 07:30 09/16/24 07:23 Insulin Lispro (Admelog) 1 Unit/0.01 Ml Unit SC 10/11/24 07:29 2 unit AC LEONIDAS Administration Protocol Insulin Human Lispro 5 unit 09/12/24 12:00 09/16/24 07:23 Insulin Lispro (Admelog) 1 Unit/0.01 Ml Unit SC 10/12/24 11:59 5 unit TIDWM LEONIDAS Administration Ondansetron HCl 4 mg 09/10/24 17:59 Ondansetron Inj 2 Mg/Ml Inj 2 Ml IVP 10/10/24 17:58 Q6H PRN NAUSEA OR VOMITING Protocol Pantoprazole Sodium 40 mg 09/12/24 09:00 09/16/24 09:15 Pantoprazole 40 Mg Tablet PO 10/12/24 08:59 40 mg QDAY LEONIDAS Administration Sennosides 1 tab 09/11/24 09:00 09/16/24 09:15 Senna Tablet PO 10/11/24 08:59 1 tab QDAY LEONIDAS Administration Protocol Zinc Sulfate 220 mg 09/11/24 09:00 09/16/24 09:15 Zinc Sulfate 220 Mg Capsule PO 10/11/24 08:59 220 mg QDAY LEONIDAS Administration Plan Jose Angel Hoyos is a 54-year-old male with a past medical history of type 2 diabetes mellitus who is admitted for management of necrotizing fasciitis. #Necrotizing fasciitis, s/p guillotine amputation and now right BKA POD #1 #Osteomyelitis Presents with complaint of lower extremity edema, pain on proportion, with associated fever and chills after recent trauma to lower extremity. XR of foot revealed osteomyelitis of proximal phalanx of third digit, distal 2nd and 3rd metatarsals, and air in the soft tissue near the lateral ankle and metatarsals. CT scan of the foot showed extensive soft tissue infection, osteomyelitis of the proximal phalanx of the 2nd and 3rd digits, and early osteomyelitis of the distal 2nd and 3rd metatarsals. Vancomycin and Zosyn (09/10-09/14) ? General Surgery following, appreciate recommendations ? Infectious disease following, appreciate recommendations ? Ceftriaxone (09/14-) ? Blood culture 09/10: NGTD ? Wound culture 09/10: Aerococcus species ? Pain management: norco and morphine #Type 2 diabetes mellitus A1c 7.2%, not on any home medications. Presented with blood glucose 400. ? Glargine 15 units daily ? Lispro 5 untis TIDWM ? Hypoglycemic protocol in place ? Strict blood sugar control to optimize wound healing #Hypophosphatemia ? Continue to monitor and replete as needed Hospital management: Disposition: S/p right BKA, will continue to monitor for another 24 to 48 hours Diet: diabetic Lines: PIV DVT prophylaxis: SCD of right lower extremity GI prophylaxis: pantoprazole 40 mg daily CODE STATUS: full code ----- Plan discussed with attending physician Dr. Otis Foster MD PGY-1 Internal Medicine Attending Provider Attestation/Addendum I have examined the patient, reviewed labs and imaging findings, discussed the case with the resident(s), and reviewed entered orders. I agree with the plan of care as outlined in this note, with these additional summaries/recommendations: Patient seen at bedside. No acute overnight events and he has no acute complaints today. He reports his pain is relatively controlled. Patient is POD #1 s/p right below knee amputation. Continue antibiotics. Pain management as needed. Mild hypophosphatemia present and replacement given. Repeat level in AM. Continue basal and bolus insulin for diabetes mellitus type 2 with A1c 7.2%. Target blood sugar of 140-180 while hospitalized. Minimal increase in leukocytosis which is most likely reactive. Please see residents note for additional details and management. Dr. Otis MD
[2024-09-16] MEDS: ATORVASTATIN CALCIUM 20 MG TABLET 40 MG PO (20:10)
[2024-09-17] VITALS (7 sets, daily range): BP systolic 138–165; BP diastolic 77–85; PULSE 82–93; RESP 16–93; TEMP 36.6–37.4; O2SAT 92–95; BMI 27.7
[2024-09-17 06:28] LABS: Basophils % (Auto) 0 % (0-2.5); Eosinophils % (Auto) 0 % (0-10); Hematocrit 36.9 % (41.0-53.0); Hemoglobin 12.2 g/dL (13.5-16.0); Immature Granulocytes % (Auto) 1 % (0-0); Immature Granulocytes Auto 0.15 Thou/mm3 (0.00-0.00); Lymphocytes # (Auto) 3.1 Thou/mm3 (1.0-4.8); Lymphocytes % (Auto) 26 % (10-50); Mean Corpuscular HGB Conc 33.1 g/dl (31.0-37.0); Mean Corpuscular Hemoglobin 28.8 pg (25.0-35.0); Mean Corpuscular Volume 87 fL (80-100); Monocytes # (Auto) 1.2 Thou/mm3 (0.0-0.8); Monocytes % (Auto) 10 % (0-12); Neutrophils # (Auto) 7.5 Thou/mm3 (1.8-7.7); Neutrophils % (Auto) 62 % (37-80); Nucleated Red Blood Cell % 0 /100 WBC (0); Platelet Count 288 Thou/mm3 (140-440); RDW Standard Deviation 41.7 fL (35.1-43.9); Red Blood Count 4.24 Miln/mm3 (4.50-5.90); White Blood Count 12.1 Thou/mm3 (3.8-10.6)
[2024-09-17 06:57] LABS: Alanine Aminotransferase 30 U/L (10-49); Albumin, Serum 3.1 gm/dL (3.5-5.0); Albumin/Globulin Ratio 0.8 (1.2-2.2); Alkaline Phosphatase 189 U/L (46-116); Anion Gap 10 (7-16); Aspartate Amino Transferase 44 U/L (0-34); BUN/Creatinine Ratio 23 Ratio (12-20); Bilirubin,Total 0.5 mg/dL (0.3-1.2); Blood Urea Nitrogen 14 mg/dL (9-23); Calcium 8.3 mg/dL (8.3-10.6); Carbon Dioxide 25.7 mMol/L (20.0-31.0); Chloride 105 mMol/L (98-107); Creatinine (Component) 0.6 mg/dL (0.6-1.3); Estimated Creatinine Clearance 127.7 mL/min (>60); Globulin 3.7 gm/dL (2.3-3.5); Glucose 105 mg/dL (74-106); Magnesium 1.9 mg/dL (1.6-2.6); Osmolality,Calculated 281 (275-295); Phosphorous 2.4 mg/dL (2.4-5.1); Potassium 3.8 mMol/L (3.4-5.1); Sodium 141 mMol/L (136-145); Total Protein 6.8 gm/dL (5.7-8.2); eGFR > 60 See Note
[2024-09-17] MEDS: ASCORBIC ACID 250 MG TABLET 500 MG PO ×2 (08:35→20:53)
[2024-09-17] MEDS: SENNA TABLET 1 TAB PO (08:35)
[2024-09-17] MEDS: DOCUSATE SOD 100 MG CAPSULE PO ×2 (08:35→20:53)
[2024-09-17] MEDS: cephALEXin 250 MG CAPSULE 500 MG PO ×4 (08:35→20:53)
[2024-09-17] MEDS: ZINC SULFATE 220 MG CAPSULE PO (08:35)
[2024-09-17] MEDS: PANTOPRAZOLE 40 MG TABLET PO (08:36)
[2024-09-17] MEDS: INSULIN GLARGINE (Lantus) 5 UNIT/0.05 ML (PER 5 UNITS) 15 UNIT SC (08:39)
--- NOTE | 2024-09-17 09:35 | PD.RESPRO ---
Documentation for date of: 09/17/24 Subjective Subjective Interval history: No acute overnight events. Seen and examined at bedside and patient states that pain is tolerable. No fever, chills, sweats, rigors. Performing surgeon to remove dressings on postop day 3, 09/18 and anticipate discharge within next 24 to 40 hours pending recommendations. Antibiotics switched to oral Keflex for 5 days. Vital signs stable, CBC showing stable leukocytosis and hemoglobin, CHEM panel showed glucose of 105. Exam Vital Signs Temp Pulse Resp BP Pulse Ox O2 Del Method O2 Flow Rate 97.8 F 84 17 138/84 H 95 Room Air 2 09/17/24 09:04 09/17/24 09:04 09/17/24 09:04 09/17/24 09:04 09/17/24 09:04 09/17/24 09:04 09/16/24 16:00 Narrative Exam GENERAL: no acute distress, AAO x3, well nourished. HEENT: Head AT/ NC. Mucous membranes moist. PERRL. NECK: Supple, no lymphadenopathy, no carotid bruits. CARDIOVASCULAR: RRR. Normal S1/S2, No m/r/g. RESPIRATORY: CTAB. No wheezing, rhonchi, crackles. GASTROINTESTINAL: Abdomen soft, non tender no palpable masses. Bowel sounds present in all 4 quadrants. MUSCULOSKELETAL:? s/p right lower extremity BKA, dressings placed NEUROLOGICAL: CN II-XII grossly intact. No focal deficits. Sensation intact, symmetric. PSYCHIATRIC: Awake and alert, not agitated, normal mood and affect. INTEGUMENTARY: No obvious rashes, no jaundice, normal turgor. Objective Labs 09/18/24 05:44 09/18/24 05:44 Labs: Laboratory Results - last 24 hr 09/17/24 05:25 WBC 12.1 H RBC 4.24 L Hgb 12.2 L Hct 36.9 L MCV 87 MCH 28.8 MCHC 33.1 RDW Std Deviation 41.7 Plt Count 288 Neut % (Auto) 62 Lymph % (Auto) 26 [place] % (Auto) 10 Eos % (Auto) 0 Baso % (Auto) 0 Neut # (Auto) 7.5 Lymph # (Auto) 3.1 [place] # (Auto) 1.2 H Eos # (Auto) 0.0 Baso # (Auto) 0.0 Immature Gran # (Auto) 0.15 H Absolute Nucleated RBC 0.00 Immature Gran % 1 H Nucleated RBC % 0 Sodium 141 Potassium 3.8 Chloride 105 Carbon Dioxide 25.7 Anion Gap 10 BUN 14 Creatinine 0.6 Estim Creat Clear Calc 127.7 eGFR > 60 BUN/Creatinine Ratio 23 H Glucose 105 D Calculated Osmolality 281 Calcium 8.3 Corrected Calcium 9.0 Phosphorus 2.4 Magnesium 1.9 Total Bilirubin 0.5 AST 44 H ALT 30 Alkaline Phosphatase 189 H Total Protein 6.8 Albumin 3.1 L Globulin 3.7 H Albumin/Globulin Ratio 0.8 L Quality Measures Quality Measures none Assessment & Plan Assessment Current Active Medications: Generic Name Dose Route Start Last Admin Trade Name Freq PRN Reason Stop Dose Admin Ascorbic Acid 500 mg 09/10/24 21:00 09/17/24 08:35 Ascorbic Acid 250 Mg Tablet PO 10/10/24 20:59 500 mg BID LEONIDAS Administration Atorvastatin Calcium 40 mg 09/11/24 21:00 09/16/24 20:10 Atorvastatin Calcium 20 Mg Tablet PO 10/11/24 20:59 40 mg HS LEONIDAS Administration Cephalexin HCl 500 mg 09/17/24 08:15 09/17/24 08:35 Cephalexin 250 Mg Capsule PO 09/22/24 08:14 500 mg QID LEONIDAS Administration Dextrose 25 ml 09/10/24 18:04 Dextrose 50%-Water Inj 50 Ml Syringe IV 10/10/24 18:03 Q15MIN PRN BG 50-70 responsive npo pt Dextrose 50 ml 09/10/24 18:04 Dextrose 50%-Water Inj 50 Ml Syringe IV 10/10/24 18:03 Q15MIN PRN BG <50 OR BG <70 & pt unresponsive Docusate Sodium 100 mg 09/10/24 21:00 09/17/24 08:35 Docusate Sod 100 Mg Capsule PO 10/10/24 20:59 100 mg BID LEONIDAS Administration Protocol Glucagon 1 mg 09/10/24 18:04 Glucagon Inj 1 Mg Vial IM Q15MIN PRN BG <70, and no IV access Insulin Glargine 15 unit 09/13/24 09:00 09/17/24 08:39 Insulin Glargine (Lantus) 5 Unit/0.05 Ml (Per 5 Units) SC 10/13/24 08:59 15 unit QDAY LEONIDAS Administration Insulin Human Lispro 0 unit 09/11/24 07:30 09/17/24 08:30 Insulin Lispro (Admelog) 1 Unit/0.01 Ml Unit SC 10/11/24 07:29 Not Given AC [facility] Protocol Insulin Human Lispro 5 unit 09/12/24 12:00 09/16/24 17:42 Insulin Lispro (Admelog) 1 Unit/0.01 Ml Unit SC 10/12/24 11:59 5 unit TIDWM LEOINDAS Administration Ondansetron HCl 4 mg 09/10/24 17:59 Ondansetron Inj 2 Mg/Ml Inj 2 Ml IVP 10/10/24 17:58 Q6H PRN NAUSEA OR VOMITING Protocol Pantoprazole Sodium 40 mg 09/12/24 09:00 09/17/24 08:36 Pantoprazole 40 Mg Tablet PO 10/12/24 08:59 40 mg QDAY LEONIDAS Administration Sennosides 1 tab 09/11/24 09:00 09/17/24 08:35 Senna Tablet PO 10/11/24 08:59 1 tab QDAY LEONIDAS Administration Protocol Zinc Sulfate 220 mg 09/11/24 09:00 09/17/24 08:35 Zinc Sulfate 220 Mg Capsule PO 10/11/24 08:59 220 mg QDAY LEONIDAS Administration Plan Jose Angel Hoyos is a 54-year-old male with a past medical history of type 2 diabetes mellitus who is admitted for management of necrotizing fasciitis. #Necrotizing fasciitis, s/p guillotine amputation and now right BKA POD #1 #Osteomyelitis Presents with complaint of lower extremity edema, pain on proportion, with associated fever and chills after recent trauma to lower extremity. XR of foot revealed osteomyelitis of proximal phalanx of third digit, distal 2nd and 3rd metatarsals, and air in the soft tissue near the lateral ankle and metatarsals. CT scan of the foot showed extensive soft tissue infection, osteomyelitis of the proximal phalanx of the 2nd and 3rd digits, and early osteomyelitis of the distal 2nd and 3rd metatarsals. Vancomycin and Zosyn (09/10-09/14) Blood culture 09/10: NGTD Wound culture 09/10: Aerococcus species ? General Surgery following, appreciate recommendations ? Infectious disease following, appreciate recommendations ? Ceftriaxone (09/14-09/17) -> cephalexin 500 mg p.o. 4 times daily (09/17-09/22) ? Pain management: norco and morphine #Type 2 diabetes mellitus A1c 7.2%, not on any home medications. Presented with blood glucose 400. ? Glargine 15 units daily ? Lispro 5 untis TIDWM ? Hypoglycemic protocol in place ? Strict blood sugar control to optimize wound healing #Hypophosphatemia, resolved ? Continue to monitor and replete as needed Hospital management: Disposition: S/p right BKA, will continue to monitor for another 24 to 48 hours Diet: diabetic Lines: PIV DVT prophylaxis: SCD of right lower extremity GI prophylaxis: pantoprazole 40 mg daily CODE STATUS: full code ----- Plan discussed with attending physician Dr. Otis Foster MD PGY-1 Internal Medicine Attending Provider Attestation/Addendum I have examined the patient, reviewed labs and imaging findings, discussed the case with the resident(s), and reviewed entered orders. I agree with the plan of care as outlined in this note, with these additional summaries/recommendations: Patient seen at bedside. No acute overnight events and he has no acute complaints today. Pain controlled and he was seen by physical therapy. Home health referral made. Stump protector in room. Patient is POD #2 s/p right below knee amputation. Continue antibiotics. Pain management as needed. Continue basal and bolus insulin for diabetes mellitus type 2 with A1c 7.2%. Target blood sugar of 140-180 while hospitalized. Anticipate discharge in the next 24 to 48 hours if cleared by surgery. Please see residents note for additional details and management. Dr. Otis MD
[2024-09-17] MEDS: INSULIN LISPRO (AdmeLOG) 1 UNIT/0.01 ML UNIT 5 UNIT SC ×2 (12:01→16:53)
[2024-09-17] MEDS: INSULIN LISPRO (AdmeLOG) 1 UNIT/0.01 ML UNIT SC (16:54)
[2024-09-17] MEDS: ATORVASTATIN CALCIUM 20 MG TABLET 40 MG PO (20:53)
[2024-09-18] VITALS: BP 129/76; PULSE 89; RESP 18; TEMP 37.2; O2SAT 92
[2024-09-18 01:44] VITALS: PULSE 79; RESP 20; RESP 94
[2024-09-18 04:00] VITALS: BP 138/82; PULSE 88; RESP 18; TEMP 36.5; O2SAT 93
[2024-09-18] MEDS: cephALEXin 250 MG CAPSULE 500 MG PO ×2 (05:10→12:05)
[2024-09-18 06:00] VITALS: BMI 27.5
[2024-09-18 06:29] LABS: Basophils # (Auto) 0.1 Thou/mm3 (0.0-0.2); Basophils % (Auto) 0 % (0-2.5); Eosinophils % (Auto) 0 % (0-10); Hematocrit 37.7 % (41.0-53.0); Hemoglobin 12.7 g/dL (13.5-16.0); Immature Granulocytes % (Auto) 1 % (0-0); Immature Granulocytes Auto 0.11 Thou/mm3 (0.00-0.00); Lymphocytes # (Auto) 3.2 Thou/mm3 (1.0-4.8); Lymphocytes % (Auto) 28 % (10-50); Mean Corpuscular HGB Conc 33.7 g/dl (31.0-37.0); Mean Corpuscular Hemoglobin 28.9 pg (25.0-35.0); Mean Corpuscular Volume 86 fL (80-100); Monocytes # (Auto) 1.1 Thou/mm3 (0.0-0.8); Monocytes % (Auto) 9 % (0-12); Neutrophils % (Auto) 61 % (37-80); Nucleated Red Blood Cell % 0 /100 WBC (0); Platelet Count 268 Thou/mm3 (140-440); RDW Standard Deviation 40.1 fL (35.1-43.9); White Blood Count 11.5 Thou/mm3 (3.8-10.6)
[2024-09-18 06:54] LABS: Alanine Aminotransferase 45 U/L (10-49); Albumin, Serum 3.2 gm/dL (3.5-5.0); Albumin/Globulin Ratio 0.8 (1.2-2.2); Alkaline Phosphatase 244 U/L (46-116); Anion Gap 10 (7-16); Aspartate Amino Transferase 47 U/L (0-34); BUN/Creatinine Ratio 18 Ratio (12-20); Bilirubin,Total 0.6 mg/dL (0.3-1.2); Blood Urea Nitrogen 11 mg/dL (9-23); Calcium 8.7 mg/dL (8.3-10.6); Calcium (Corrected) 9.3 mg/dL (8.5-10.1); Carbon Dioxide 26.4 mMol/L (20.0-31.0); Chloride 101 mMol/L (98-107); Creatinine (Component) 0.6 mg/dL (0.6-1.3); Estimated Creatinine Clearance 127.4 mL/min (>60); Globulin 3.9 gm/dL (2.3-3.5); Glucose 117 mg/dL (74-106); Magnesium 1.9 mg/dL (1.6-2.6); Osmolality,Calculated 274 (275-295); Phosphorous 3.1 mg/dL (2.4-5.1); Potassium 3.9 mMol/L (3.4-5.1); Sodium 137 mMol/L (136-145); Total Protein 7.1 gm/dL (5.7-8.2); eGFR > 60 See Note
[2024-09-18 07:38] VITALS: PULSE 89; RESP 20; RESP 92
[2024-09-18] MEDS: INSULIN LISPRO (AdmeLOG) 1 UNIT/0.01 ML UNIT 5 UNIT SC ×2 (07:54→12:17)
[2024-09-18 08:00] VITALS: BP 125/79; PULSE 85; RESP 18; TEMP 37.1; O2SAT 93
--- NOTE | 2024-09-18 09:35 | PD.SURPROG ---
Documentation for date of: 09/18/24 Subjective Subjective Narrative: Patient is seen and examined. His pain is well-controlled Exam Vital Signs Temp Pulse Resp BP Pulse Ox O2 Del Method O2 Flow Rate 98.7 F 85 18 125/79 93 L Room Air 2 09/18/24 08:00 09/18/24 08:00 09/18/24 08:00 09/18/24 08:00 09/18/24 08:00 09/18/24 08:00 09/16/24 16:00 Constitutional Constitutional: no acute distress Routine Extremities Exam Comments: Right BKA stump dressings removed, incision is clean, dry and intact without evidence of infection or bleeding at this time Assessment & Plan Assessment Additional comments: Postop day #3 status post right below the knee amputation Plan Dressings removed and stump protector applied. Patient to be discharged on oral antibiotic for 7 days. Follow-up with Dr Wade in 3 weeks Procedures Procedures Right below the knee amputation
[2024-09-18] MEDS: ASCORBIC ACID 250 MG TABLET 500 MG PO (09:45)
[2024-09-18] MEDS: ZINC SULFATE 220 MG CAPSULE PO (09:46)
[2024-09-18] MEDS: DOCUSATE SOD 100 MG CAPSULE PO (09:46)
[2024-09-18] MEDS: PANTOPRAZOLE 40 MG TABLET PO (09:46)
[2024-09-18] MEDS: SENNA TABLET 1 TAB PO (09:46)
[2024-09-18] MEDS: INSULIN GLARGINE (Lantus) 5 UNIT/0.05 ML (PER 5 UNITS) 15 UNIT SC (09:46)
--- NOTE | 2024-09-18 09:58 | ESDS_ITS ---
Planned Discharge Date 09/18/24 DS: Providers Provider Date of admission: 09/10/24 17:54 Primary care physician: Parminder Causey MD Admitting Provider: Benoit Douglas MD Attending Provider on Admission: Home Berg MD Consults: 09/10/24 16:59 Consult to General Surgery Stat Comment: Consulting Provider: Marietta Wade 09/11/24 13:30 Referral Registered Dietitian Routine Comment: 09/12/24 07:52 Consult to Infectious Diseases Routine Comment: Consulting Provider: Kristian Feliciano 09/16/24 07:45 Referral Physical Therapy Routine Comment: Physician Instructions: Attending Provider on DC: Efraín Foster MD Discharging Provider: Efraín Foster MD DS: Diagnosis Problem List Completed Was Problem List Reviewed/Reconciled?: Yes Hospital Course Hospital Course Hospital course: Jose Angel Hoyos is a 54-year-old male with a past medical history of type 2 diabetes mellitus who is admitted for management of necrotizing fasciitis. Initially presented with right lower extremity pain, swelling, and purulent discharge after trauma related to a tractor that occurred a few weeks prior to admission. Upon evaluation ED, wound noted to be necrotic and continued to drain purulent material for which emergent consultation to general surgery was placed and went for emergent guillotine amputation to control infection on 09/10. Afterwards, risk factors including hyperglycemia and hypoalbuminemia were addressed and patient then underwent BKA of right lower extremity on 09/15 without complications. Patient initially on vancomycin and Zosyn that were then changed to ceftriaxone and finally changed to Keflex upon discharge and patient did not develop any fevers while in house and WBC remained mildly elevated though multiple surgeries noted to have possibly contributed. Blood sugars were controlled on 15 units glargine, 5 units lispro 3 times daily with meals as A1c noted to be 7.3%. Patient required minimal pain medications, likely secondary to diabetic nephropathy. Throughout hospitalization no acute events occurred, vital signs remained stable, and labs largely unremarkable. Thus, patient was deemed stable for discharge after cleared by surgery with 4 more days of Keflex and started on metformin for diabetes with close follow-up with general surgery. Diagnoses during admission: #Necrotizing fasciitis, s/p guillotine amputation and right BKA #Osteomyelitis #Type 2 diabetes mellitus #Hypophosphatemia, resolved Discharge instructions: ? Take keflex 500 mg four times per day for 4 more days ? Take metformin 500 mg twice per day for your diabetes ? Continue taking all other home medications as prescribed ? Follow-up with general surgery within 1-2 weeks of discharge ? Follow-up with PCP within 1-2 weeks of discharge ? If you do not have a PCP, you can follow-up at the [facility] (you can call [phone] to make an appointment) ? If you wish to follow-up with Dr. Foster, schedule appointment on Thursday afternoons ? Return to ED if symptoms worsen or recur ----- Plan discussed with attending physician Dr. Otis Foster MD PGY-1 Internal Medicine Time Spent with Patient Time attestation: Total time spent providing and/or coordinating discharge services: Time spent: Greater than 30 minutes Home Health Home Health Referral Orders: 09/16/24 10:42 Home Health Referral Routine Reason For Exam: physical therapy & wound care Home-Bound The patient must either because of illness or injury, need the aid of supportive devices such as crutches, canes, wheelchairs, and walkers; the use of special transportation; or the assistance of another person in order to leave their place of residence; OR have a condition such that leaving his or her home is medically contraindicated. In addition, the patient also meets the following criteria: patient is normally unable to leave the home and leaving home requires considerable taxing effort. Addendum to Home Health Certification Practitioner's Certification: I certify that the patient has been under my care in the hospital and the care of attending physician (see below). We had a [id number] encounter on (see date below). My clinical findings indicate that the patient is home bound per the above criteria and the Home Health Services noted in these orders are medically necessary. The primary reason for the [id number] encounter is related to the fact that the patient requires home health services. Date Certifying [id number] Physician Encounter: 09/10/24 Physician's Name who will Assume Oversight for Services: Parminder Causey Physician's Phone No.who will Assume Oversight for Service: DIRECTOR [employer] - Community Resources: No PT to Evaluate: Yes PT to evaluate and provide a treatmnet plan to increase patient's mobility and strength. Wound Care: Yes Home Health RN - Wound Care Order: Wound care IV Therapy: No RN Safety Evaluation: Yes RN to evaluate and create a plan of care that will produce positive outcomes. Palliative Treatment: No Palliative treatment and evaluate the need for hospice. Home Health Aide - Personal Care: No Home Health Aide to assist with any ADL's. Exam Vital Signs Temp Pulse Resp BP Pulse Ox O2 Del Method O2 Flow Rate 98.7 F 85 18 125/79 93 L Room Air 2 09/18/24 08:00 09/18/24 08:00 09/18/24 08:00 09/18/24 08:00 09/18/24 08:00 09/18/24 08:00 09/16/24 16:00 Narrative Exam GENERAL: no acute distress, AAO x3, well nourished. HEENT: Head AT/ NC. Mucous membranes moist. PERRL. NECK: Supple, no lymphadenopathy, no carotid bruits. CARDIOVASCULAR: RRR. Normal S1/S2, No m/r/g. RESPIRATORY: CTAB. No wheezing, rhonchi, crackles. GASTROINTESTINAL: Abdomen soft, non tender no palpable masses. Bowel sounds present in all 4 quadrants. MUSCULOSKELETAL:? s/p right lower extremity BKA, stump placed NEUROLOGICAL: CN II-XII grossly intact. No focal deficits. Sensation intact, symmetric. PSYCHIATRIC: Awake and alert, not agitated, normal mood and affect. INTEGUMENTARY: No obvious rashes, no jaundice, normal turgor. Discharge Plan Plan Patient Disposition: Home w/HOME HEALTH Care Plan Goals: ? Take keflex 500 mg four times per day for 4 more days ? Take metformin 500 mg twice per day for your diabetes ? Continue taking all other home medications as prescribed ? Follow-up with general surgery within 1-2 weeks of discharge ? Follow-up with PCP within 1-2 weeks of discharge ? If you do not have a PCP, you can follow-up at the [facility] (you can call [phone] to make an appointment) ? If you wish to follow-up with Dr. Foster, schedule appointment on Thursday afternoons ? Return to ED if symptoms worsen or recur ? [place] Keflex 500 mg cuatro veces al d?a senia 4 d?as m?s. ? [place] metformina 500 mg dos veces al d?a para la diabetes. ? Contin?e tomando todos los dem?s medicamentos que rashad en casa seg?n lo prescrito. ? Maria Esther ruby ender de seguimiento con cirug?a general dentro de 1 a 2 semanas despu?s del renzo. ? Maria Esther ruby ender de seguimiento con longoria m?dico de cabecera dentro de 1 a 2 semanas despu?s del renzo. ? Si no tiene un m?dico de cabecera, puede hacer ruby ender de seguimiento en el [facility]?viral de [place] (puede llamar al [phone] para programar ruby ender). ? Si desea ruby ender de seguimiento con el Dr. Foster, programe ruby ender los mi?rcoles por la tarde. ? Regrese a urgencias si los s?ntomas empeoran o reaparecen. Prescriptions/Referrals Prescriptions/Med Rec: New cephalexin 500 mg capsule 500 mg PO QID 4 Days Qty: 16 0RF metformin 500 mg tablet 500 mg PO BID 30 Days Qty: 60 0RF ascorbic acid (vitamin C) [Vitamin C] 250 mg Tablet 500 mg PO BID Qty: 60 0RF docusate sodium 100 mg Capsule 100 mg PO BID Qty: 30 0RF zinc sulfate 50 mg zinc (220 mg) Capsule 220 mg PO QDAY Qty: 30 0RF hydrocodone-acetaminophen 5-325 mg tablet 1 tab PO Q6H MDD 4 PRN (Reason: pain (scale score 7-10)) Qty: 20 0RF Referrals: Parminder Causey MD [Primary Care Provider] - Marietta Wade MD [Physician] - Patient/Caregiver Discharge Instructions Discharge Activity: activity as tolerated Other Discharge Activity Instructions:: Take keflex 500 mg four times per day for 4 more days ? Take metformin 500 mg twice per day for your diabetes ? Continue taking all other home medications as prescribed ? Follow-up with general surgery within 1-2 weeks of discharge ? Follow-up with PCP within 1-2 weeks of discharge ? If you do not have a PCP, you can follow-up at the [facility] (you can call [phone] to make an appointment) ? If you wish to follow-up with Dr. Foster, schedule appointment on Thursday afternoons ? Return to ED if symptoms worsen or recur Education Materials: Amputation What to Expect After, Preventing Surgical Site Infections Print Language: Korean Activity Restrictions/Additional Instructions: May shower. No weightbearing on right lower extremity and wear stump protector at all times. Follow-up with Dr Wade in 3 weeks, please call [phone] for an appointment .Puede ducharse. No apoye peso en la extremidad inferior derecha y use protector de mu??n en todo momento. Consulte con el Dr. Wade en 3 semanas; llame al [phone] para programar ruby ender. Stand Alone Forms: Anjana Award Info., Patient Portal Info Letter Discharge Order Discharge Orders: Discharge (Routine); Ordered 09/18/24 Ordered By: Efraín Foster Quality Discharge Quality Measures VTE prophylaxis (SCDs left lower extremity only) Attestestation MD Attestation I have examined the patient, reviewed labs and imaging findings, discussed the case with the resident(s), and reviewed entered orders. I agree with the plan of care as outlined in this note. Time Spent: [address] Otis MD
[2024-09-18 12:00] VITALS: BP 150/80; PULSE 83; RESP 18; TEMP 37.2; O2SAT 93
--- NOTE | 2024-09-19 07:16 | PC.CC ---
Addendum entered by Diamond Hurley RN 09/19/24 07:43: Pt booked with [facility], SOC is 09/20 Original Note: Home health referrals sent to all agencies, pt had no preference documented
== END 2024-09-18 13:30 | disposition home health service (06) | DRG 305 ==
LOC: SERX 17:11 → SERHOLD 18:07 → S3NX 20:21 → S3SX 09-11 19:22
PROVIDERS: Internal Medicine Infectious Disease; Nurse Practitioner Primary Care; Student in an Organized Health Care Education/Training Program; Surgery; Admitting Provider Student in an Organized Health Care Education/Training Program; Emergency Provider Family Medicine; PCP Family Medicine; Visit Provider Student in an Organized Health Care Education/Training Program
PROC: (CPT 27880; principal; 2024-09-10 19:00)
PROC: 0Y6H0Z1 Detachment at Right Lower Leg, High, Open Approach (ICD-10-PCS; CPT 27880; principal; 2024-09-15 17:00)
DX: M72.6 Necrotizing fasciitis (principal); E11.69 Type 2 diabetes mellitus with other specified complication; M86.171 Other acute osteomyelitis, right ankle and foot; E11.51 Type 2 diabetes mellitus with diabetic peripheral angiopathy without gangrene; E11.65 Type 2 diabetes mellitus with hyperglycemia; E83.39 Other disorders of phosphorus metabolism; E88.09 Other disorders of plasma-protein metabolism, not elsewhere classified; E78.5 Hyperlipidemia, unspecified; E87.20 Acidosis, unspecified; E87.6 Hypokalemia; I10 Essential (primary) hypertension; Z79.4 Long term (current) use of insulin
CPT/HCPCS: 36415; 73630; 73700; 80053; 80061; 80202; 82550; 83036; 83605; 83735; 84100; 84145; 85025; 85610; 85652; 85730; 86140; 86703; 86803; 87040; 87070; 87075; 87077; 87205; 93225; 94664; 94762; 96361; 96365; 96366; 96367; 96372; 97162; 99285; A4217; A4649; J0131; J0330; J0690; J0696; J1100; J1815; J2371; J2405; J2470; J2543; J2704; J2765; J3010; J3370; J3490; J7030; J7120; P9047; A9270; J1805